=== PATIENT | female | born 1980 | race Caucasian/White ===

== ENCOUNTER 2017-09-04 11:30 | Observation (INO) | payer MEDICAID, SELFPAY | END 2017-09-05 09:20 | disposition home or self-care (01) | PROVIDERS: Admitting Provider Obstetrics & Gynecology; Family Provider Pediatrics; Visit Provider Obstetrics & Gynecology | DX: R10.2 Pelvic and perineal pain (principal); N39.0 Urinary tract infection, site not specified; N81.89 Other female genital prolapse; N81.5 Vaginal enterocele | CPT/HCPCS: 58150; 57268; 36415; 81001; 85014; 85018; 87086; 96372; 96374; 96375; G0378; J0131; J2405 ==

== ENCOUNTER → 2018-01-26 09:48 | Outpatient (POV) | payer MEDICAID, SELFPAY ==
[2018-01-26 10:16] VITALS: BP 126/75; PULSE 68; RESP 20; TEMP 37.1; O2SAT 99
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
--- NOTE | 2018-01-26 10:47 | P.CONS_ITS ---
Assessment and Plan (1) Pelvic pain Current visit: Yes Status: Chronic Category: Medical Code(s): R10.2 - Pelvic and perineal pain (2) Peripheral neuropathy Current visit: Yes Status: Chronic Qualifiers: Peripheral neuropathy type: polyneuropathy, unspecified Qualified Code(s): G62.9 - Polyneuropathy, unspecified Category: Medical Code(s): G62.9 - Polyneuropathy, unspecified - Assessment and plan all Dx Assessment and Plan for all problems:: This patient has failed gabapentin in the past. We will start her on Lyrica 75 mg twice a day. Will follow up with her in 2 weeks and reevaluate her symptoms. If she has no side effects we will increase this dose to 100 mg 3 times a day. She may also be a candidate to add Cymbalta if she does not get much benefit with the Lyrica. HPI - Data of Consult Patient: new to practice Consult date: 01/26/18 Requesting Physician: Cameron Flores MD Primary Care Provider: Grabiel Hernández Family Provider: Referral Provider, - Consult Narrative Reason for consult: Pelvic pain with neuropathy History of present illness: Ms. Nando Swift is a 37 year old female who presents with pelvic pain and some neuropathic issues. Patient states that she has electric shocks all over her body including the pelvic area her arms, mid back and legs. This occurs approximately 10-15 times a day and can only last for a few seconds to a minute. She has previously been on gabapentin prescribed by her primary care physician which did not give her any benefit. The patient cannot think of anything else that makes her pain better or worse. Since this patient has failed gabapentin I would like to start her on Lyrica 75 mg twice a day. This patient has not been on Lyrica. Pain score is a 7 out of 10. Patient is also tried Motrin, naproxen and Zoloft which have not given her any benefit. She has not done any physical therapy. Patient has seen a neurologist and had nerve conduction studies done which are negative. CC: Cameron Flores MD [facility] History I have reviewed the patient's past medical history: Yes Medical History: Denies:: Diabetes Mellitus Type 1 Other Medical History: Reports: Other Other Surgeries: Yes: Appendectomy, BSO, Hernia Repair, Hysterectomy-Total, Other Amputation: No Fractures: No - *Social History Educational Level: Completed High School Smoking Status: Current some day smoker Tobacco Type: cigarettes # Packs/Day (cigarettes): 1 Alcohol Intake: never Alcohol Intake Frequency:: a few times a month Substance Use Type: denies use Occupational Status: other Housing: house - Psychiatric History Expresses thoughts of harming self/others: None Suicide Plan Description: No Plan *Family Hx:: Cancer, Diabetes, Hypertension, Stroke Review of Systems - Review of Systems Review of systems:: pertinent systems reviewed and negative unless documented below Meds Home Medications Medication Instructions Recorded Confirmed Type multivitamin,[id number] 1 tab PO QDAY 10/09/17 History tablet nitrofurantoin 1 cap PO Q12H 10/09/17 History monohydrate/macrocrystals 100 mg capsule varenicline 0.5 mg tablet 0.5 mg PO QDAY 10/09/17 History Allergies Allergy/AdvReac Type Severity Reaction Status Date / Time codeine [CODEINE] Allergy Unknown I-ITCHING Unverified 01/12/18 14:43 Objective Vital signs: Temp Pulse Resp
== END ==
PROVIDERS: PCP Orthopaedic Surgery; Visit Provider Anesthesiology
DX: G62.9 Polyneuropathy, unspecified (principal); R10.2 Pelvic and perineal pain
CPT/HCPCS: 99202

== ENCOUNTER → 2018-02-09 13:33 | Outpatient (POV) | payer MEDICAID, SELFPAY ==
[2018-02-09 13:42] VITALS: BP 125/69; PULSE 58; RESP 18; O2SAT 97; BMI 25.7
--- NOTE | 2018-02-09 14:32 | HMH.PAINSOAP ---
[facility] Pain Management SOAP Note Subjective:: Patient is a 37-year-old white female who presents today with a complaint of electric shock like pain all over her body. Patient states that this happens 10-15 times a day. She is also got migraines which she experiences at least once a week. Patient's previously been on gabapentin. Patient was started on Lyrica 75 mg 1 p.o. twice daily. Patient denies any side effects that she is getting some benefit from it but I believe the dose needs to be adjusted. Patient's tried and failed Motrin, naproxen, Zoloft. Patient has been to neurology where she had nerve studies conducted however they were negative. Patient has had a duodenal switch. She is also had multiple abdominal surgeries. Patient and I discussed potentially getting some labs drawn from her primary care. I recommended a B12, thyroid panel, and iron level, CBC BMP. Patient is going to be going to her primary care physician to have these tests run and she is going to return to our office with the results. [facility] #[id number] and appropriate. Of note patient did lose her sister 2 years ago. Her symptoms did follow after this. Biofeedback therapy may be helpful for her in the future. ROS General: no recent weight change, no fever, no sleep disturbances Respiratory: no cough, no shortness of air, no recurring pulmonary infections Cardiovascular/Peripheral Vascular: No chest pain, No palpitations, no edema, no shortness of breath. Gastrointestinal: no incontinence, normal bowel movements reported Genitourinary: no incontinence Musculoskeletal: Electric shocklike pain generalized, migraines Psychiatric: normal mood/ affect Neurological: [denies weakness in extremities], [denies balance issues] Objective:: Physical Exam General: Alert and oriented x3, no acute distress, pleasant and cooperative, [on room air] Lungs: Resps E/U, Symmetrical chest expansion, Eyes: PERRL Musculoskeletal: deep tendon reflexes normal, strength in upper and lower extremities [5/5], normal gait noted Neurological: speech clear, behavioral health clinician equal, no gross sensory deficits Assessment:: Pelvic pain, peripheral neuropathy Plan:: We will increase her there could 150 mg 1 p.o. twice daily. She will get her labs done and revisit us in a month. We will evaluate her labs and also discuss how her Lyrica increase has assisted. This note was dictated using voice recognition software and may contain errors or omissions
--- NOTE | 2018-02-09 14:47 | P.CONS_ITS ---
[facility] Pain Management SOAP Note Subjective:: Patient is a 37-year-old white female who presents today with a complaint of electric shock like pain all over her body. Patient states that this happens 10 -15 times a day. She is also got migraines which she experiences at least once a week. Patient's previously been on gabapentin. Patient was started on Lyrica 75 mg 1 p.o. twice daily. Patient denies any side effects that she is getting some benefit from it but I believe the dose needs to be adjusted. Patient's tried and failed Motrin, naproxen, Zoloft. Patient has been to neurology where she had nerve studies conducted however they were negative. Patient has had a duodenal switch. She is also had multiple abdominal surgeries. Patient and I discussed potentially getting some labs drawn from her primary care. I recommended a B12, thyroid panel, and iron level, CBC BMP. Patient is going to be going to her primary care physician to have these tests run and she is going to return to our office with the results. [facility] # [id number] and appropriate. Of note patient did lose her sister 2 years ago. Her symptoms did follow after this. Biofeedback therapy may be helpful for her in the future. ROS General: no recent weight change, no fever, no sleep disturbances Respiratory: no cough, no shortness of air, no recurring pulmonary infections Cardiovascular/Peripheral Vascular: No chest pain, No palpitations, no edema, no shortness of breath. Gastrointestinal: no incontinence, normal bowel movements reported Genitourinary: no incontinence Musculoskeletal: Electric shocklike pain generalized, migraines Psychiatric: normal mood/ affect Neurological: [denies weakness in extremities], [denies balance issues] Objective:: Physical Exam General: Alert and oriented x3, no acute distress, pleasant and cooperative, [ on room air] Lungs: Resps E/U, Symmetrical chest expansion, Eyes: PERRL Musculoskeletal: deep tendon reflexes normal, strength in upper and lower extremities [5/5], normal gait noted Neurological: speech clear, admissions nurse equal, no gross sensory deficits Assessment:: Pelvic pain, peripheral neuropathy Plan:: We will increase her there could 150 mg 1 p.o. twice daily. She will get her labs done and revisit us in a month. We will evaluate her labs and also discuss how her Lyrica increase has assisted. This note was dictated using voice recognition software and may contain errors or omissions
== END ==
PROVIDERS: PCP Orthopaedic Surgery; Visit Provider Clinical Nurse Specialist Family Health
DX: G62.9 Polyneuropathy, unspecified (principal); R10.2 Pelvic and perineal pain
CPT/HCPCS: 99212

== ENCOUNTER → 2018-03-09 13:40 | Outpatient (POV) | payer MEDICAID, SELFPAY ==
[2018-03-09 13:53] VITALS: BP 127/66; PULSE 57; RESP 18; O2SAT 98; BMI 25.7
--- NOTE | 2018-03-09 14:57 | HMH.PAINSOAP ---
[facility] Pain Management SOAP Note Subjective:: Patient is a pleasant 37-year-old white female who presents today for follow-up. Patient's main complaint of electric shock like pain all over her body still continues. Patient was unable to fill her Lyrica. Patient had tried Lyrica 75 mg 1 p.o. twice a day and did well with this. Patient denied side effects and stated it was the only medication that actually helped her pain. Patient's tried and failed Motrin, naproxen, Zoloft, gabapentin. We will will increase the patient to Lyrica 150 mg 1 p.o. twice daily given the efficacy. 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 Patient's been to neurology where she had nerve studies conducted however they were negative. Patient has not had multiple abdominal surgeries. Patient was unable to have labs drawn from her primary care physician. As discussed in her last note I do believe biofeedback therapy may be helpful for her in the future. Patient rates her pain a 2 out of 10 today however she states her baseline pain is a 6 out of 10. ROS General: no recent weight change, no fever, no sleep disturbances Respiratory: no cough, no shortness of air, no recurring pulmonary infections Cardiovascular/Peripheral Vascular: No chest pain, No palpitations, no edema, no shortness of breath. Gastrointestinal: no incontinence, normal bowel movements reported Genitourinary: no incontinence Musculoskeletal: Electric shocklike pain generalized, migraines Psychiatric: normal mood/ affect Neurological: [denies weakness in extremities], [denies balance issues] Objective:: Physical Exam General: Alert and oriented x3, no acute distress, pleasant and cooperative, [on room air] Lungs: Resps E/U, Symmetrical chest expansion, Eyes: PERRL Musculoskeletal: deep tendon reflexes normal, strength in upper and lower extremities [5/5], normal gait noted Neurological: speech clear, fibre cement moulder equal, no gross sensory deficits Assessment:: Pelvic pain, peripheral neuropathy Plan:: We will prescribe Lyrica 150 mg 1 p.o. twice daily given the efficacy of her trial dose and failures of other treatment. I will follow-up with this patient after she has been on this dose for 1 month. We did speak with her pharmacy and requested a prior authorization for this medication. This note was dictated using voice recognition software and may contain errors or omissions
--- NOTE | 2018-03-09 15:01 | P.CONS_ITS ---
[facility] Pain Management SOAP Note Subjective:: Patient is a pleasant 37-year-old white female who presents today for follow- up. Patient's main complaint of electric shock like pain all over her body still continues. Patient was unable to fill her Lyrica. Patient had tried Lyrica 75 mg 1 p.o. twice a day and did well with this. Patient denied side effects and stated it was the only medication that actually helped her pain. Patient's tried and failed Motrin, naproxen, Zoloft, gabapentin. We will will increase the patient to Lyrica 150 mg 1 p.o. twice daily given the efficacy. 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 Patient's been to neurology where she had nerve studies conducted however they were negative. Patient has not had multiple abdominal surgeries. Patient was unable to have labs drawn from her primary care physician. As discussed in her last note I do believe biofeedback therapy may be helpful for her in the future. Patient rates her pain a 2 out of 10 today however she states her baseline pain is a 6 out of 10. ROS General: no recent weight change, no fever, no sleep disturbances Respiratory: no cough, no shortness of air, no recurring pulmonary infections Cardiovascular/Peripheral Vascular: No chest pain, No palpitations, no edema, no shortness of breath. Gastrointestinal: no incontinence, normal bowel movements reported Genitourinary: no incontinence Musculoskeletal: Electric shocklike pain generalized, migraines Psychiatric: normal mood/ affect Neurological: [denies weakness in extremities], [denies balance issues] Objective:: Physical Exam General: Alert and oriented x3, no acute distress, pleasant and cooperative, [ on room air] Lungs: Resps E/U, Symmetrical chest expansion, Eyes: PERRL Musculoskeletal: deep tendon reflexes normal, strength in upper and lower extremities [5/5], normal gait noted Neurological: speech clear, absorber operator equal, no gross sensory deficits Assessment:: Pelvic pain, peripheral neuropathy Plan:: We will prescribe Lyrica 150 mg 1 p.o. twice daily given the efficacy of her trial dose and failures of other treatment. I will follow-up with this patient after she has been on this dose for 1 month. We did speak with her pharmacy and requested a prior authorization for this medication. This note was dictated using voice recognition software and may contain errors or omissions
== END ==
PROVIDERS: PCP Orthopaedic Surgery; Visit Provider Clinical Nurse Specialist Family Health
DX: G62.9 Polyneuropathy, unspecified (principal)
CPT/HCPCS: 99212

== ENCOUNTER → 2018-04-06 13:23 | Outpatient (POV) | payer MEDICAID, SELFPAY ==
[2018-04-06 13:38] VITALS: BP 111/60; PULSE 59; RESP 18; O2SAT 98; BMI 25.7
--- NOTE | 2018-04-06 14:02 | HMH.PAINSOAP ---
[facility] Pain Management SOAP Note Subjective:: Patient is a pleasant 37-year-old white female who presents today for follow-up. Patient's main complaint of electric shocklike the liver body still continues. Patient was unable to fill her Lyrica. Patient states that during her trial of Lyrica she did experience left shocks and typical. Patient's been to neurology where she has had nerve studies conducted however they were negative. 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 Patient states most of her electrical shocks today are mainly in the vaginal area. She rates her pain a 4 out of 10 today. Patient has not tried Cymbalta. ROS General: no recent weight change, no fever, no sleep disturbances Respiratory: no cough, no shortness of air, no recurring pulmonary infections Cardiovascular/Peripheral Vascular: No chest pain, No palpitations, no edema, no shortness of breath. Gastrointestinal: no incontinence, normal bowel movements reported Genitourinary: no incontinence Musculoskeletal: Electric shocklike pain generalized, migraines Psychiatric: normal mood/ affect Neurological: [denies weakness in extremities], [denies balance issues] Objective:: Physical Exam General: Alert and oriented x3, no acute distress, pleasant and cooperative, [on room air] Lungs: Resps E/U, Symmetrical chest expansion, Eyes: PERRL Musculoskeletal: deep tendon reflexes normal, strength in upper and lower extremities [5/5], normal gait noted Neurological: speech clear, fine grade operator equal, no gross sensory deficits Assessment:: Pelvic pain, peripheral neuropathy Plan:: We will start her on Cymbalta 30 mg 1 p.o. daily we will see her back in 1 month to determine if this is helpful. If it is we will increase her to 60 mg daily. This note was dictated using voice recognition software and may contain errors or omissions
--- NOTE | 2018-04-06 14:05 | P.CONS_ITS ---
[facility] Pain Management SOAP Note Subjective:: Patient is a pleasant 37-year-old white female who presents today for follow- up. Patient's main complaint of electric shocklike the liver body still continues. Patient was unable to fill her Lyrica. Patient states that during her trial of Lyrica she did experience left shocks and typical. Patient's been to neurology where she has had nerve studies conducted however they were negative. 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 Patient states most of her electrical shocks today are mainly in the vaginal area. She rates her pain a 4 out of 10 today. Patient has not tried Cymbalta. ROS General: no recent weight change, no fever, no sleep disturbances Respiratory: no cough, no shortness of air, no recurring pulmonary infections Cardiovascular/Peripheral Vascular: No chest pain, No palpitations, no edema, no shortness of breath. Gastrointestinal: no incontinence, normal bowel movements reported Genitourinary: no incontinence Musculoskeletal: Electric shocklike pain generalized, migraines Psychiatric: normal mood/ affect Neurological: [denies weakness in extremities], [denies balance issues] Objective:: Physical Exam General: Alert and oriented x3, no acute distress, pleasant and cooperative, [ on room air] Lungs: Resps E/U, Symmetrical chest expansion, Eyes: PERRL Musculoskeletal: deep tendon reflexes normal, strength in upper and lower extremities [5/5], normal gait noted Neurological: speech clear, clinical investigator equal, no gross sensory deficits Assessment:: Pelvic pain, peripheral neuropathy Plan:: We will start her on Cymbalta 30 mg 1 p.o. daily we will see her back in 1 month to determine if this is helpful. If it is we will increase her to 60 mg daily. This note was dictated using voice recognition software and may contain errors or omissions
== END ==
PROVIDERS: PCP Orthopaedic Surgery; Visit Provider Clinical Nurse Specialist Family Health
DX: G62.9 Polyneuropathy, unspecified (principal)
CPT/HCPCS: 99212

== ENCOUNTER → 2018-05-04 13:16 | Outpatient (POV) | payer MEDICAID, SELFPAY ==
[2018-05-04 13:43] VITALS: BP 122/67; PULSE 66; RESP 18; O2SAT 97; BMI 25.7
--- NOTE | 2018-05-04 14:08 | HMH.PAINSOAP ---
[facility] Pain Management SOAP Note Subjective:: Patient is a pleasant 38-year-old white female who presents today for follow-up. Patient was put on Cymbalta and last visit however she has not had any success with this. Patient main complaint is electric shocklike signals around her body. Patient has had Lyrica and Lyrica has been the only thing that has helped her. Patient had a duodenal switch in the past. Patient's been to neurology where she had nerve studies conducted however they were negative. She rates her pain a 5 out of 10. She states most of her electrical shocks today are mainly in her lower abdomen. ROS General: no recent weight change, no fever, no sleep disturbances Respiratory: no cough, no shortness of air, no recurring pulmonary infections Cardiovascular/Peripheral Vascular: No chest pain, No palpitations, no edema, no shortness of breath. Gastrointestinal: no incontinence, normal bowel movements reported Genitourinary: no incontinence Musculoskeletal: Nerve pain Psychiatric: normal mood/ affect Neurological: [denies weakness in extremities], [denies balance issues] Objective:: Physical Exam General: Alert and oriented x3, no acute distress, pleasant and cooperative, [on room air] Lungs: Resps E/U, Symmetrical chest expansion, Eyes: PERRL Musculoskeletal: deep tendon reflexes normal, strength in upper and lower extremities [5/5], normal gait noted Neurological: speech clear, health and safety consultant equal, no gross sensory deficits Assessment:: Pelvic pain, peripheral neuropathy Plan:: We will see if she is a candidate for the Lyrica assistance program. Patient had such good relief in the past I believe that this is the medication that would be the most beneficial for her. We will start her at 5 mg 1 p.o. twice daily. I will follow-up with her once we determine if she is a candidate or not. This note was dictated using voice recognition software and may contain errors or omissions
== END ==
PROVIDERS: PCP Orthopaedic Surgery; Visit Provider Clinical Nurse Specialist Family Health
DX: G62.9 Polyneuropathy, unspecified (principal)
CPT/HCPCS: 99212

== ENCOUNTER → 2019-05-13 08:35 | Outpatient (CLI) | payer MEDICAID, SELFPAY ==
--- NOTE | 2019-05-13 08:50 | CT_ITS ---
PROCEDURE: CT WRIST RT WO CON CLINICAL HISTORY: further evaluation of fracture Pain, fracture evaluation COMPARISON: XR WRIST RT MIN 3V from 05/11/2019 TECHNIQUE: Axial images obtained with sagittal and coronal reformats. All CT scans at the facility use one or more dose reduction, viz: automated exposure control, ma/kV adjustment per patient size (including targeted exams where dose is matched to indication, i.e. head), or iterative reconstruction technique. FINDINGS: There is a comminuted fracture involving the distal aspect of the radius. The fracture extends into the articular surface medially and dorsally. The dorsal medial fracture fragment is displaced laterally by 7 mm. There is mild dorsal angulation of the distal fracture fragment. The radial ulnar joint does not appear widened. There is a small avulsion injury at the tip of the ulnar styloid. IMPRESSION: Comminuted mildly displaced distal radial fracture with intra-articular involvement and associated avulsion of the ulnar styloid Dictated by: Reg Ellis MD 05/14/2019 07:03 Signed by: <Electronically signed by Reg Ellis MD in [place]> 05/14/2019 07:03
--- NOTE | 2019-05-13 08:50 | XR_ITS ---
PROCEDURE: XR CHEST 2V CLINICAL HISTORY: CURRENT TOBACCO USE, PRE OP Current smoker. With cough COMPARISON: No prior exams were available for comparison FINDINGS: Lungs clear with nothing definitely acute. Calcified left hilar nodes reflect old granulomatous disease. Very small partially calcified peripheral granuloma projected over the anterior 6th rib The cardiomediastinal silhouette and pulmonary vascularity are within normal limits. The lungs are clear without infiltrates, suspicious nodules, or pleural effusions. No acute bony abnormalities. IMPRESSION: No acute findings. Lungs clear no active disease Dictated by: Goldy Dudley MD 05/13/2019 11:09 Signed by: <Electronically signed by Goldy Dudley MD in [place]> 05/13/2019 11:09
[2019-05-13 09:39] LABS: Basophils # 0.1 K/mm3 (0-0.2); Basophils % 0.7 % (0.1-2.0); Eosinophils # 0.1 K/mm3 (0.0-0.4); Hematocrit 37.5 % (37.0-47.0); Hemoglobin 11.4 g/dL (12.2-16.2); Lymphocytes # 3.1 K/mm3 (0.7-4.5); Lymphocytes % 30.2 % (10-50); Mean Corpuscular HGB Conc 30.5 g/dL (31.8-35.4); Mean Corpuscular Hemoglobin 24.9 pg (27.0-31.2); Mean Corpuscular Volume 81.6 fl (81-99); Mean Platelet Volume 8.5 fl (7.4-10.4); Monocytes % 9.9 % (1.7-9.3); Neutrophils # 5.9 K/mm3 (1.8-7.8); Neutrophils % 58.2 % (37.0-80.0); Platelet Count 294 K/mm3 (142-424); Red Blood Count 4.59 M/mm3 (4.20-5.40); Red Cell Distribution Width 16.9 % (11.5-17.5); White Blood Count 10.2 K/mm3 (4.8-10.8)
[2019-05-13 10:55] LABS: Anion Gap 15.7 mEq/L (5-15); Blood Urea Nitrogen 6 mg/dL (7-18); Calcium 8.9 mg/dL (8.5-10.1); Carbon Dioxide 26 mmol/L (21.0-32.0); Chloride 101 mmol/L (98-107); Creatinine,Serum 0.98 mg/dL (0.55-1.02); Estimated Glomerular Filt Rate 64 ml/min (>60); GFR (African American) 77 ML/MIN (>60); Glucose 82 mg/dL (74-106); Potassium 3.7 mmoL/L (3.5-5.1); Sodium 139 mmol/L (136-145)
== END ==
PROVIDERS: PCP Pediatrics; Visit Provider Orthopaedic Surgery
DX: Z01.818 Encounter for other preprocedural examination (principal); S52.571A Other intraarticular fracture of lower end of right radius, initial encounter for closed fracture
CPT/HCPCS: 36415; 71046; 73200; 80048; 85025

== ENCOUNTER → 2019-05-25 12:01 | Outpatient (CLI) | payer MEDICAID, SELFPAY ==
--- NOTE | 2019-05-25 12:05 | XR_ITS ---
PROCEDURE: XR WRIST RT MIN 3V CLINICAL INDICATION: sp ORIF rt wrist, dos 05/14/19; cast applied Follow-up fracture/ORIF COMPARISON: XR WRIST RT 2V from 05/14/2019 FINDINGS: A volar bone plate remains in place stabilizing distal radial fracture. There is good alignment. A cast is present. IMPRESSION: Status post ORIF distal radial fracture with good alignment Dictated by: Reg Ellis MD 05/25/2019 12:22 Signed by: <Electronically signed by Reg Ellis MD in [place]> 05/25/2019 12:22
== END ==
PROVIDERS: PCP Family Medicine; Visit Provider Orthopaedic Surgery
DX: Z48.89 Encounter for other specified surgical aftercare (principal)
CPT/HCPCS: 73110

== ENCOUNTER → 2019-06-23 10:42 | Outpatient (CLI) | payer MEDICAID, SELFPAY ==
--- NOTE | 2019-06-23 10:44 | XR_ITS ---
PROCEDURE: XR WRIST RT MIN 3V CLINICAL INDICATION: sp ORIF RT wrist, dos 05/14/19. xrays out of cast Follow-up ORIF after cast removal COMPARISON: XR WRIST RT MIN 3V from 05/11/2019 XR WRIST RT 2V from 05/14/2019 XR WRIST RT MIN 3V from 05/25/2019 FINDINGS: Anterior bone plate remains in place stabilizing the distal radial fracture. There is good alignment. Fracture line is still visible dorsally. IMPRESSION: Good alignment status post ORIF distal radial fracture Dictated by: Reg Ellis MD 06/23/2019 12:18 Electronically signed by Reg Ellis MD in [place] 06/23/2019 12:18
== END ==
PROVIDERS: PCP Family Medicine; Visit Provider Orthopaedic Surgery
DX: S52.571A Other intraarticular fracture of lower end of right radius, initial encounter for closed fracture (principal); S52.614A Nondisplaced fracture of right ulna styloid process, initial encounter for closed fracture; Z09 Encounter for follow-up examination after completed treatment for conditions other than malignant neoplasm
CPT/HCPCS: 73110

== ENCOUNTER 2019-06-23 11:41 | Outpatient (RCR) | payer MEDICAID, SELFPAY | END 2019-06-23 12:00 | disposition home or self-care (01) | LOC: OT 11:41 | PROVIDERS: Visit Provider Orthopaedic Surgery | DX: S52.571D Other intraarticular fracture of lower end of right radius, subsequent encounter for closed fracture with routine healing (principal); S52.614D Nondisplaced fracture of right ulna styloid process, subsequent encounter for closed fracture with routine healing | CPT/HCPCS: 97763 ==

== ENCOUNTER → 2019-08-04 10:05 | Outpatient (CLI) | payer MEDICAID, SELFPAY ==
--- NOTE | 2019-08-04 10:09 | XR_ITS ---
PROCEDURE: XR WRIST RT MIN 3V CLINICAL INDICATION: sp ORIF RT wrist, dos 05/14/19 COMPARISON: XR WRIST RT MIN 3V from 05/11/2019 XR WRIST RT 2V from 05/14/2019 XR WRIST RT MIN 3V from 05/25/2019 XR WRIST RT MIN 3V from 06/23/2019 FINDINGS: Status post ORIF distal radial fracture with volar bone plate and multiple screws. There is good alignment of the fracture fragments with no significant change from the previous exam.. The most lateral screw at the distal radius appears to project just lateral to the cortical surface of the distal radius. The fracture line of the distal radius appears somewhat less apparent IMPRESSION: Good alignment status post ORIF distal radial fracture Dictated by: Reg Ellis MD 08/04/2019 10:32 Electronically signed by Reg Ellis MD in [place] 08/04/2019 10:32
== END ==
PROVIDERS: PCP Pediatrics; Visit Provider Orthopaedic Surgery
DX: S52.571A Other intraarticular fracture of lower end of right radius, initial encounter for closed fracture (principal); S52.614A Nondisplaced fracture of right ulna styloid process, initial encounter for closed fracture; Z09 Encounter for follow-up examination after completed treatment for conditions other than malignant neoplasm
CPT/HCPCS: 73110

== ENCOUNTER 2021-06-05 13:55 | Emergency (ER) | payer MEDICAID, SELFPAY ==
[2021-06-05 15:43] VITALS: BP 113/84; PULSE 86; RESP 18; TEMP 37; O2SAT 100; BMI 27.4
[2021-06-05 15:47] VITALS: BP 113/84; PULSE 86; RESP 18; TEMP 36.9
--- NOTE | 2021-06-05 16:04 | HMH.EDUTC ---
[facility] [place] Disposition Clinical Impression: Viral syndrome, Exposure to COVID-19 virus Disposition: Home, Self-Care Condition on Discharge: Good Instructions: DI for COVID-19 (Suspected or Confirmed ), Preventing the Spread of Coronavirus Discharge Instructions Additional Instructions: Drink plenty of fluids. Take tylenol or ibuprofen for pain or fever. Take the medications as directed. Follow up with your regular doctor. GO TO THE ER FOR ANY WORSENING SYMPTOMS Quarantine until you know the results of your covid-19 test. If it is positive, the health department should call you and give you further instructions about your length of Quarantine and other things. Notify your school or workplace of your results and follow their instructions regarding return to work/school. Referrals: Carlton Walters [Primary Care Provider] - Time of Disposition: 16:16 Medical Decision Making - Medical Records Medical records reviewed: No: I reviewed the patient's medical records. - Dixon Inquiry Pt receiving controlled substance: No Vital Signs: 06/05/21 15:43 06/05/21 15:47 Temperature 98.6 F 98.4 F Temperature Source Oral Pulse Rate 86 Pulse Rate [Left] 86 Respiratory Rate 18 18 Blood Pressure 113/84 Blood Pressure [Right Arm] 113/84 Blood Pressure Mean [Right Arm] 93 02 Sat by Pulse Oximetry 100 [facility] [place] HPI - General Stated complaint: covid test / symptoms Time Seen by Provider: 06/05/21 16:04 Mode of Arrival: Ambulatory Source of Information: Patient Limitations: No Limitations Description of Symptoms (Recalled from Triage Doc. by RN): pt c/o chills, KINCAID, fever hx, and body aches. HEENT Symptoms (Recalled from RN notes): Yes (KINCAID) Resp Symptoms (Recalled from RN notes): No Skin Symptoms (Recalled from RN notes): No MS Symptoms (Recalled from RN notes): No Functional Status (Recalled from RN notes): fever, myalgia, and chills - History of Present Illness Provider Complaint: She has had chilling, chest tightness and she has felt bad for the past 2 days. - Related Data Home Medications Medication Instructions Recorded Confirmed multivitamin,[id number] 1 tab PO QDAY 10/09/17 08/04/19 varenicline 0.5 mg tablet 0.5 mg PO QDAY 10/09/17 08/04/19 Allergies Allergy/AdvReac Type Severity Reaction Status Date / Time codeine [CODEINE] Allergy Unknown I-ITCHING Verified 08/04/19 10:26 - Worker's Comp Is this a Worker's Comp case?: No [facility] History - Hepatitis A Screen Drug use history?: No High risk sexual behaviors?: No History of sexually transmitted infection?: No Currently employed?: No Childcare worker?: No Do you have indoor plumbing?: Yes Do you have electricity?: Yes Attestation statement:: This patient has been screened for Hepatitis A risk factors. I have reviewed the patient's past medical history: Yes Medical History: Reports:: Cancer, Gastroesophageal Reflux Disease(GERD) Denies:: Diabetes Mellitus Type 1, Diabetes Mellitus Type 2, Internal Pacemaker, MRSA, Seizures Other Medical History: Reports: Other. Denies: Blood Transfusion Reaction Comment: Pancreatitis--2010--Secondary to weight loss surgery Other Surgeries: Yes: Appendectomy, BSO, Cholecystectomy, Hernia Repair, Hysterectomy-Total, Other. No: Pacemaker Amputation: No Fractures: No Comment: LEEP--2006. Duodenal Switch (for weight loss)--2010. Ventral Herniorrhaphy--2011. Essure Implant --2015. HSG--08/2016. TVh, BSO, E/R--2016 - Social History Smoking Status: Current every day smoker Tobacco Type: cigarettes # Packs/Day (cigarettes): 2 Alcohol Intake: never Alcohol Intake Frequency:: holidays/special occasions only Substance Use Type: marijuana Occupational Status: employed, other Housing: house Household Members: spouse Family Hx:: Cancer, Diabetes, Hypertension, Stroke Comment: 2012-- Baby of SIDS at 2 1/2 months ROS Obtained: Yes All systems reviewed & no additional complaints - Con
== END 2021-06-05 16:26 | disposition home or self-care (01) ==
PROVIDERS: Emergency Provider Nurse Practitioner Family; PCP Pediatrics
DX: U07.1 COVID-19 (principal)
CPT/HCPCS: 99202; G0463; U0003

== ENCOUNTER → 2023-04-23 08:57 | Outpatient (POV) | payer MEDICAID, SELFPAY ==
--- NOTE | 2023-04-23 09:15 | EXP.PAIN.OV ---
HPI Data of Consult Patient: new to practice Consult date: 04/23/23 Requesting Physician: Elma Myrick APRN Consult Narrative Reason for consult: Electrical shock symptoms History of present illness: Ms. Nando Swift is a 43 year old female who presents today as a new patient. She is a referral from Lisset Guevara's office. Today she rates her pain a Patient states that about 8 years ago unrelated to any specific accident or trauma that she started experiencing electrical shocks throughout her body. Patient states this occurs in her arms and legs and behind her ears and has no sets pattern. She states that it seems unrelated to any specific activity she may be continuing. She states that she has done multiple test and seen multiple specialist with no acute findings. Patient did also see a neurologist and believes that she may have had an EMG test. She has tried [id number] Tylenol and ibuprofen along with multiple muscle relaxers. She is currently on methocarbamol 750 mg 4 times a day. She is also tried gabapentin with no additional relief. Patient was denied Lyrica from insurance. Patient has had multiple surgeries including bariatric surgery approximately 12 years ago, bilateral mastectomy with flap reconstruction, appendectomy, cholecystectomy, hysterectomy and ventral hernia repair. She does state that she is on B12 and frequently has her B12 levels checked once a year. She does have a chronic history of low back pain with no radiating symptoms. She does state that she has some numbness and tingling to her legs. Patient is currently prescribed oxycodone 5 mg from an outside provider. She does use marijuana as needed. She has tried physical therapy in the past. Patient does state that she does have previous imaging of her lumbar spine that was sent via email and that she can send it to our office. Her Dixon is [id number]. Its been reviewed and appropriate. CC: Elma Myrick APRN [facility] Disclaimer: The information contained in this section may have been updated after the patient was seen, as this information can be updated by other users. Medical History (Updated 04/23/23 @ 09:35 by Elma Myrick APRN) Anemia BRCA positive H/O chest pain Marijuana abuse Migraine Seizures Surgical History (Updated 04/23/23 @ 09:19 by Dominique Radford RN) H/O bilateral mastectomy H/O total hysterectomy Hx laparoscopic cholecystectomy Hx of appendectomy Hx of bariatric surgery Status post transverse rectus abdominis muscle (TRAM) flap breast reconstruction Family History (Updated 04/23/23 @ 09:20 by Dominique Radford RN) Other Family history of cancer Social History Smoking Status: Current every day smoker tobacco type: cigarettes packs per day: 2 second hand exposure: Yes alcohol intake: never substance use type: marijuana current occupational status: other Travel in the last 8 weeks: None household members: spouse housing: house current occupation: [employer] current occupational exposures/hazards: No caffeine: Yes Review of Systems Review of Systems Review of systems:: pertinent systems reviewed and negative unless documented below Review of systems (narrative): Review of Systems: General: No recent weight changes, no fever, no sleep disturbances Respiratory: No cough, no shortness of air, no recurring pulmonary infections Cardiovascular/peripheral vascular: No chest pain, no palpitations, no edema, no shortness of breath Gastrointestinal: No new onset incontinence, normal bowel movements reported Genitourinary: No new onset incontinence Musculoskeletal: Full body electrical shock/paresthesia Psychiatric: [Normal mood/affect] Neurological: [Denies weakness in extremities], [denies balance issues] Meds Home Medications and Allergies Home Medications Medication Instructions Recorded Confirmed Type multivitamin,ji-[id number] 1 tab PO QDAY Supplement 10/09/17 04/23/23 History
[2023-04-23 09:16] VITALS: BP 111/75; PULSE 120; RESP 20; O2SAT 100; BMI 27.4
== END ==
PROVIDERS: Visit Provider Nurse Practitioner Family
DX: G62.9 Polyneuropathy, unspecified (principal); R20.2 Paresthesia of skin; M54.50 Low back pain, unspecified; G89.29 Other chronic pain; G89.4 Chronic pain syndrome
CPT/HCPCS: 99202; G0463

== ENCOUNTER → 2023-06-16 11:37 | Outpatient (POV) | payer MEDICAID, SELFPAY ==
--- NOTE | 2023-06-16 12:09 | EXP.PAIN.SOA ---
[facility] Pain Management SOAP Note Subjective:: Patient is a pleasant 43-year-old female who presents today for follow-up. We are currently treating the patient for low back pain, paresthesia, chronic pain disorder. Today she rates her pain a 4 out of 10. Patient does state that she has had a lot going on here recently from our last visit. She states she was hospitalized for 10 days for hemorrhaging. Patient had previously had a operating room procedure and was still continuing to have significant bleeding. Patient states they did do a full work-up including endoscopic procedures and she was found to have a large ulcer that was causing her symptoms. Patient states that she was put on a liquid diet and was added new medications. Patient states she has been doing better following this and she has a follow-up endoscopic procedure tomorrow. Patient does state that she has hemorrhoids from having children and that this is the only bleeding she has noticed in small amounts. Patient does present today with copies of her imaging however we do not have a written report. Patient does state that she had this done at the spine center in [place]. Patient does also state that she has been to see the psychologist for her psych eval last week. Previously we had given her information and discussed a spinal cord stimulator trial for her chronic electrical shock sensations that she is experienced for the last 8 years. Patient does state that she still would like to proceed forward with this plan of care. Patient is currently managed with oxycodone 5 mg from a outside provider. Patient denies any side effects from this medication. Her Dixon is [id number]. Its been reviewed and appropriate. Review of Systems: General: No recent weight changes, no fever, no sleep disturbances Respiratory: No cough, no shortness of air, no recurring pulmonary infections Cardiovascular/peripheral vascular: No chest pain, no palpitations, no edema, no shortness of breath Gastrointestinal: No new onset incontinence, normal bowel movements reported Genitourinary: No new onset incontinence Musculoskeletal: Low back pain, full body electrical shock Psychiatric: [Normal mood/affect] Neurological: [Denies weakness in extremities], [denies balance issues] Objective:: Physical Exam: General: Alert and oriented x3, no acute distress, pleasant and cooperative Lungs: Respirations even and unlabored, symmetrical chest expansion Eyes: PERRL Musculoskeletal: Flexion and extension of lumbar [spine] somewhat guarded secondary to pain, [antalgic gait noted] Neurological: Speech clear, no gross sensory deficit Neck back and knees Center 05/16/2022 X-ray: AP and lateral images were taken of the thoracic spine. Pelvic x-ray AP view. Views include AP and lateral lumbar, AP lateral flexion and extension of cervical spine There is a moderate loss of cervical lordosis noted. There is lateral listing of the lumbar spine to the left: Mild patient has an elevated right pelvis on AP view There is a decrease in the cervical intervertebral disc space at C6-C7. Osteoarthritic changes noted at C5, C6 and C7. There is a decrease in disc height noted at the thoracic T9-T10. Osteoarthritis is noted at T9. Disc height decrease noted at lumbar L4-L5 L5-S1. There is osteoarthritic changes in the lumbar spine at vertebral level L5. Mobility is noted to be decreased in flexion and extension views Assessment:: Low back pain, paresthesia, chronic pain disorder Plan:: Patient continues to have her electrical shock sensations that run through her entire body. I have reviewed with the patient regarding the risk and benefits of the spinal cord stimulator trial. She still would like to proceed forward. I have counseled the patient that at this time we do not have a copy of her psych eval however once we do receive this we will plan on proceeding forward with submitting to insurance for the trial if she is deemed an appropriate can
[2023-06-16 12:23] VITALS: BP 106/74; PULSE 89; RESP 18; O2SAT 99; BMI 22.3
== END ==
PROVIDERS: Visit Provider Nurse Practitioner Family
DX: M54.50 Low back pain, unspecified (principal); R20.2 Paresthesia of skin; G89.4 Chronic pain syndrome
CPT/HCPCS: 99212; G0463

== ENCOUNTER → 2023-07-16 11:03 | Outpatient (POV) | payer MEDICAID, SELFPAY ==
--- NOTE | 2023-07-16 11:53 | EXP.PAIN.SOA ---
[facility] Pain Management SOAP Note Subjective:: Patient is a pleasant 43-year-old female who presents today for follow-up. We are currently treating the patient for chronic low back pain, chronic pain disorder and paresthesia. Today she rates her pain a 4 out of 10. Patient denies any new trauma or injury. She states she is in constant pain in her back and describes it as a aching sensation with numbness and tingling. Patient was previously sent for a psych eval for possible spinal cord stimulator trial due to her chronic electrical shock sensations that she is experienced the last 8 years. Patient does state that she perform this evaluation back in May. Patient does also make mention that she does have a gastric ulcer that she believes is causing a lot of of her pain and that her current GI specialist stated she needed to be seen by someone who does bariatric surgery on a regular basis specifically regarding the duodenal switch. Patient was previously prescribed oxycodone 5 mg from an outside provider. She is requesting if we are able to prescribe any type of medications to help with her pains on a daily basis. Patient denies any heart or kidney issues. Patient does state that she takes Tylenol on a regular basis and does avoid NSAIDs due to her gastric surgery history. Her Dixon is [id number]. Its been reviewed and appropriate. Review of Systems: General: No recent weight changes, no fever, no sleep disturbances Respiratory: No cough, no shortness of air, no recurring pulmonary infections Cardiovascular/peripheral vascular: No chest pain, no palpitations, no edema, no shortness of breath Gastrointestinal: No new onset incontinence, normal bowel movements reported Genitourinary: No new onset incontinence Musculoskeletal: Abdominal pain, low back pain Psychiatric: [Normal mood/affect] Neurological: [Denies weakness in extremities], [denies balance issues] Objective:: Physical Exam: General: Alert and oriented x3, no acute distress, pleasant and cooperative Lungs: Respirations even and unlabored, symmetrical chest expansion Eyes: PERRL Musculoskeletal: Flexion and extension of lumbar [spine] somewhat guarded secondary to pain, [antalgic gait noted] Neurological: Speech clear, no gross sensory deficit Assessment:: Chronic low back pain, chronic pain disorder, paresthesia, abdominal pain Plan:: Patient continues to experience significant pain throughout her abdomen and low back as well as numbness and tingling throughout multiple locations. I have discussed with the patient that I do think she would still be a beneficial candidate of the spinal cord stimulator trial and I will contact the psychologist to confirm that she did complete her psych eval. I have discussed with the patient the risk and benefits of this procedure and she would like to proceed forward. I have discussed with her that as long as she is an appropriate candidate for the device per the psych eval that we will proceed forward with submitting to insurance for the spinal cord stimulator trial. I will send a referral to [facility] for evaluation of her gastric ulcer related to previous bariatric surgery. I will also send in a prescription of methocarbamol 750 mg 3 times daily and provide a 1 month supply of this medication. Patient will follow-up in clinic in 1 month for reevaluation of symptoms and plan of care. Patient has been instructed to contact the clinic with any concerns before the next appointment. Dr. Flores has reviewed this note and agrees with this plan of care. This note was dictated using voice recognition software and make contain errors or omissions. [facility] Disclaimer: The information contained in this section may have been updated after the patient was seen, as this information can be updated by other users. Medical History (Updated 04/23/23 @ 09:35 by Elma Myrick APRN) Anemia BRCA positive H/O chest pain Marijuana abuse Migraine Seizures
[2023-07-16 12:51] VITALS: BP 153/78; PULSE 105; RESP 18; O2SAT 94; BMI 45.3
== END | disposition home or self-care (01) ==
PROVIDERS: Visit Provider Nurse Practitioner Family
DX: M54.50 Low back pain, unspecified (principal); G89.4 Chronic pain syndrome; R20.2 Paresthesia of skin; R10.9 Unspecified abdominal pain
CPT/HCPCS: 99212; G0463

== ENCOUNTER 2023-07-18 17:35 | Emergency (ER) | payer MEDICAID, SELFPAY ==
[2023-07-18 17:36] VITALS: BP 118/77; PULSE 67; RESP 18; TEMP 36.9; O2SAT 98; BMI 20.5
--- NOTE | 2023-07-18 17:57 | PC.NURSE ---
Dr. Adkins at [facility] for pt eval
--- NOTE | 2023-07-18 17:59 | CT_ITS ---
PROCEDURE INFORMATION: Exam: CT Abdomen And Pelvis With Contrast Exam date and time: 07/18/2023 7:46 PM Age: 43 years old Clinical indication: Abdominal pain; Additional info: Abd painhistory of bleeding ulcer TECHNIQUE: Imaging protocol: Computed tomography of the abdomen and pelvis with contrast. Radiation optimization: All CT scans at this facility use at least one of these dose optimization techniques: automated exposure control; mA and/or kV adjustment per patient size (includes targeted exams where dose is matched to clinical indication); or iterative reconstruction. Contrast material: ISOVUE; Contrast volume: 75 ml; Contrast route: IV; REPORTING DATA: Count of CT and Cardiac NM exams in prior 12 months: This patient has received 0 known CTs and 0 known cardiac nuclear medicine studies in the 12 months prior to the current study. COMPARISON: PTV US PELVIS-TRANSVAGINAL ONLY 08/01/2017 3:24 PM FINDINGS: Liver: Hepatic steatosis Gallbladder and bile ducts: Cholecystectomy. Pancreas: Pancreas unremarkable Spleen: The spleen is unremarkable. Adrenal glands: Adrenal glands unremarkable. Kidneys and ureters: No hydronephrosis. Stomach and bowel: Gastric bypass. Postoperative changes involving small bowel loops left lower quadrant. Appendix: No evidence of appendicitis. Intraperitoneal space: Unremarkable. No free air. No significant fluid collection. Vasculature: Unremarkable. No abdominal aortic aneurysm. Lymph nodes: Unremarkable. No enlarged lymph nodes. Urinary bladder: Unremarkable as visualized. Reproductive: Unremarkable as visualized. Bones/joints: Unremarkable. No acute fracture. Soft tissues: Postoperative hernia repair with mesh placement focal irregularity of the anterior abdominal wall. Clinically correlate. IMPRESSION: No evidence of acute abnormality.
[2023-07-18 18:09] LABS: Basophils # 0.1 K/mm3 (0-0.2); Basophils % 0.7 % (0.1-2.0); Eosinophils # 0.1 K/mm3 (0.0-0.4); Eosinophils % 1.1 % (0.1-12.0); Hematocrit 37.2 % (37.0-47.0); Lymphocytes # 3.7 K/mm3 (0.7-4.5); Lymphocytes % 31.5 % (10-50); Mean Corpuscular HGB Conc 32.2 g/dL (31.8-35.4); Mean Corpuscular Hemoglobin 32.5 pg (27.0-31.2); Mean Corpuscular Volume 100.9 fl (81-99); Mean Platelet Volume 8.3 fl (7.4-10.4); Monocytes % 8.1 % (1.7-9.3); Neutrophils % 58.7 % (37.0-80.0); Platelet Count 565 K/mm3 (142-424); Red Blood Count 3.69 M/mm3 (4.20-5.40); Red Cell Distribution Width 15.1 % (11.5-17.5); White Blood Count 11.9 K/mm3 (4.8-10.8)
[2023-07-18 18:23] LABS: Lactic Acid 1.8 mmol/L (0.7-2.1)
[2023-07-18 18:24] LABS: Alanine Aminotransferase 41 U/L (12-78); Albumin Level 2.5 g/dl (3.5-5.0); Albumin/Globulin Ratio 0.8 (1.1-1.8); Alkaline Phosphatase 120 U/L (38-126); Anion Gap 9.9 mEq/L (5-15); Aspartate Amino Transferase 99 U/L (14-36); Bilirubin,Total 0.2 mg/dl (0.2-1.3); Blood Urea Nitrogen 11 mg/dl (7-17); Calcium 7.7 mg/dl (8.4-10.2); Carbon Dioxide 22 mmol/L (22.0-30.0); Chloride 109 mmol/L (98-107); Estimated Glomerular Filt Rate 136 ml/min (>60); GFR (African American) 165 ML/MIN (>60); Globulin 3.2 g/dL (1.3-3.2); Glucose 99 mg/dl (74-100); Lipase 363 U/L (23-300); Potassium 3.9 mmoL/L (3.5-5.1); Sodium 137 mmol/L (136-145); Total Protein,Serum 5.7 g/dl (6.3-8.2)
--- NOTE | 2023-07-18 18:24 | HMH.EDGENADL ---
Discharge Plan Disposition Patient Disposition: Home, Self-Care Chief Complaint: Abdominal Pain Prescriptions Prescriptions: No Action multivitamin,[id number] [Complete Multivitamin] tablet 1 tab PO QDAY acetaminophen 500 mg tablet 500 mg PO Q6H Patient Comments: TAKE 1 TABLET (500 MG) BY MOUTH EVERY 6 (SIX) HOURS. lidocaine 5 % adhesive patch,medicated 1 patch topical Q12H Patient Comments: PLEASE SEE ATTACHED FOR DETAILED DIRECTIONS ibuprofen 600 mg tablet 600 mg PO Q6H Patient Comments: TAKE 1 TABLET (600 MG) BY MOUTH EVERY 6 (SIX) HOURS methocarbamol 750 mg tablet 750 mg PO TID PRN (Reason: muslce spasms) Qty: 90 0RF Referrals Follow up/Referrals: Carlton Walters [Primary Care Provider] - See instructions Activity Restrictions/Add. Instructions Additional Instructions/Restrictions: Call your family doctor to establish care for this visit to the emergency department and schedule follow-up within 48 hours to ensure improvement. If you have any worsening of your condition or any other concerning signs or symptoms, return to the emergency department or your primary care doctor for further evaluation. Esomeprazole, or omeprazole 40 mg daily each night for at least 6 weeks. Avoid ibuprofen, but you can take Tylenol 1000 mg every 6 hours for pain. Clinical Impressions Clinical Impression: Abdominal pain Instructions Patient Instructions: DI for Acute Abdominal Pain Discharge ED Provider: Denny Adkins General Adult HPI General Chief complaint: Abdominal Pain Stated complaint: abd pain Time Seen by Provider: 07/18/23 17:41 History of Present Illness HPI narrative: 43-year-old female with history of gastric bypass surgery, cholecystectomy, operation induced pancreatitis, hysterectomy presenting with abdominal pain. Patient states that her abdominal pain has been going on for over a week. Pain is severe, stabbing. It is periumbilical, radiates upward, downward, around to both flanks. Denies vomiting, but has had significant nausea. No blood or mucus in her stool, no melena. Patient without fevers or chills. Able to tolerate p.o. intake, still passing gas and having bowel movements. Patient states that most recently, she talk to her GI doctor today who told her to come to the emergency department out of concern for a bad ulcer in my duodenum and pancreas. Related Data Home Medications Medication Instructions Recorded Confirmed multivitamin,uk-vmqh-uohpesjw 1 tab PO QDAY Supplement 10/09/17 06/16/23 (Complete Multivitamin tablet) acetaminophen 500 mg tablet 500 mg PO Q6H Pain 04/23/23 06/16/23 ibuprofen 600 mg tablet 600 mg PO Q6H Pain 04/23/23 06/16/23 lidocaine 5 % topical patch 1 patch topical Q12H Pain 04/23/23 06/16/23 Previous Rx's Medication Instructions Recorded methocarbamol 750 mg tablet 750 mg PO TID PRN muslce spasms 07/16/23 #90 tabs Allergies Allergy/AdvReac Type Severity Reaction Status Date / Time codeine [CODEINE] Allergy Unknown I-ITCHING Verified 08/04/19 10:26 [facility] Disclaimer: The information contained in this section may have been updated after the patient was seen, as this information can be updated by other users. Medical History (Updated 07/18/23 @ 20:26 by Denny Adkins MD) Anemia BRCA positive H/O chest pain Marijuana abuse Migraine Seizures Surgical History (Updated 04/23/23 @ 09:19 by Dominique Radford RN) H/O bilateral mastectomy H/O total hysterectomy Hx laparoscopic cholecystectomy Hx of appendectomy Hx of bariatric surgery Status post transverse rectus abdominis muscle (TRAM) flap breast reconstruction Family History (Updated 04/23/23 @ 09:20 by Dominique Radford RN) Other Family history of cancer Social History (Updated 04/23/23 @ 09:19 by Dominique Radford RN) Smoking Status: Former smoker tobacco type: cigarettes packs per day: 2 second hand exposure: Yes alcohol
[2023-07-18 18:40] LABS: HCG,Quantitative 3 mIU/ml (0-5.42)
--- NOTE | 2023-07-18 19:08 | PC.NURSE ---
Rounded on patient, no concerns at this time.
--- NOTE | 2023-07-18 19:14 | PC.NURSE ---
Attempted to collect UA, pt reports unable to go at this time, aware
--- NOTE | 2023-07-18 19:39 | PC.NURSE ---
MD aware pt reports that pain medication isn't helping her pain, no new orders noted
--- NOTE | 2023-07-18 19:48 | PC.NURSE ---
patient back from [facility] at this time.
[2023-07-18 19:58] LABS: Microscopic, Urine URINE MICROSCOPIC (MICROSCOPIC)
--- NOTE | 2023-07-18 20:15 | PC.NURSE ---
in room talking with patient at this time
[2023-07-18 20:34] LABS: Appearance,Urine CLEAR (Clear); Bilirubin,Urine Negative (Negative); Blood, Urine Negative (Negative); Color,Urine YELLOW (Yellow); Glucose,Urine (UA) Negative (Negative); Ketones,Urine Negative (Negative); Leukocyte Esterase,Urine Negative (Negative); Nitrate,Urine Negative (Negative); Protein,Urine Negative (Negative); Specific Gravity, Urine <= 1.005 (1.005-1.030); Urobilinogen,Urine 0.2 EU/dl (0.2)
[2023-07-18 20:38] VITALS: BP 114/73; PULSE 59; RESP 16; TEMP 36.6; O2SAT 99
[2023-07-18 20:50] LABS: Bacteria,Urine Trace /lpf; WBC,Urine Occasional #/hpf (0-3)
== END 2023-07-18 20:43 | disposition home or self-care (01) ==
PROVIDERS: Emergency Provider Emergency Medicine; PCP Pediatrics
DX: R10.84 Generalized abdominal pain (principal); Z98.84 Bariatric surgery status; Z87.19 Personal history of other diseases of the digestive system; Z87.891 Personal history of nicotine dependence
CPT/HCPCS: 74177; 80053; 81001; 83605; 83690; 84702; 85025; 96374; 96375; 99285; Q9967

== ENCOUNTER → 2023-08-14 12:57 | Outpatient (POV) | payer MEDICAID, SELFPAY ==
[2023-08-14 13:13] VITALS: BP 102/61; PULSE 63; RESP 18; O2SAT 98; BMI 22.3
--- NOTE | 2023-08-14 13:18 | EXP.PAIN.SOA ---
[facility] Pain Management SOAP Note Subjective:: Patient is a pleasant 43-year-old female who presents today for follow-up of psych eval. We are currently treating the patient for chronic low back pain, chronic pain disorder and paresthesia. Today she rates her pain a 3 out of 10. Patient denies any new trauma or injury. Patient continues to experience chronic pain in her back and throughout her body. Patient does continue to experience electrical shock sensations as well as numbness and tingling into her extremities. Patient has been experiencing this for the last 8 years. She has tried and failed conservative therapy such as oral medication, heat and ice, topicals, physical therapy, at home stretching and exercise for longer than 12 weeks. Patient is currently managed with oxycodone 5 mg 4 times a day from an outside provider. She denies any side effects from this medication. From our last visit we did prescribe her methocarbamol 750 mg 3 times a day. Patient states this has helped some of her symptoms. She also states that she did get contacted from a referral to [facility] and is scheduled for a upcoming appointment at the end of this month. Her Dixon has been reviewed and is appropriate. Review of Systems: General: No recent weight changes, no fever, no sleep disturbances Respiratory: No cough, no shortness of air, no recurring pulmonary infections Cardiovascular/peripheral vascular: No chest pain, no palpitations, no edema, no shortness of breath Gastrointestinal: No new onset incontinence, normal bowel movements reported Genitourinary: No new onset incontinence Musculoskeletal: Low back pain, paresthesia throughout body Psychiatric: [Normal mood/affect] Neurological: [Denies weakness in extremities], [denies balance issues] Objective:: Physical Exam: General: Alert and oriented x3, no acute distress, pleasant and cooperative Lungs: Respirations even and unlabored, symmetrical chest expansion Eyes: PERRL Musculoskeletal: Flexion and extension of lumbar [spine] somewhat guarded secondary to pain, [antalgic gait noted] Neurological: Speech clear, no gross sensory deficit Assessment:: Chronic low back pain, chronic pain disorder and paresthesia Plan:: Patient did complete her psychological evaluation and was deemed an appropriate candidate for the spinal cord stimulator trial. I have reviewed over the risk and benefits of this procedure with the patient and she would like to proceed forward with this plan of care. I will send in refills of the methocarbamol 750 mg 3 times a day and provide a 1 month supply of this medication. Patient will be submitted for a spinal cord stimulator trial. Patient has tried and failed conservative therapy such as oral medications, heat and ice, topicals, physical therapy, at home stretching exercise for longer than 12 weeks. Patient has been experiencing the electrical shock sensations going on for 8 years. Patient has been instructed to contact the clinic with any concerns before the next appointment. Dr. Flores has reviewed this note and agrees with this plan of care. This note was dictated using voice recognition software and make contain errors or omissions. [facility] Disclaimer: The information contained in this section may have been updated after the patient was seen, as this information can be updated by other users. Medical History (Updated 07/31/23 @ 16:31 by Kelly Nam [facility]) Anemia BRCA positive H/O chest pain Marijuana abuse Migraine Seizures Surgical History (Updated 04/23/23 @ 09:19 by Dominique Radford RN) H/O bilateral mastectomy H/O total hysterectomy Hx laparoscopic cholecystectomy Hx of appendectomy Hx of bariatric surgery Status post transverse rectus abdominis muscle (TRAM) flap breast reconstruction Family History (Updated 04/23/23 @ 09:20 by Dominique Radford RN) Other Family history of cancer Social History (Updated 04/23/23 @ 09:19 by Dominique Castellanos
== END ==
PROVIDERS: PCP Family Medicine; Visit Provider Nurse Practitioner Family
DX: M54.50 Low back pain, unspecified (principal); G89.4 Chronic pain syndrome; R20.2 Paresthesia of skin
CPT/HCPCS: 99212; G0463

== ENCOUNTER → 2023-09-04 12:09 | Outpatient (CLI) | payer MEDICAID, SELFPAY ==
[2023-09-04 13:15] LABS: Basophils # 0.1 K/mm3 (0-0.2); Eosinophils # 0.1 K/mm3 (0.0-0.4); Hematocrit 42.7 % (37.0-47.0); Lymphocytes # 4.8 K/mm3 (0.7-4.5); Lymphocytes % 41.7 % (10-50); Mean Corpuscular HGB Conc 30.4 g/dL (31.8-35.4); Mean Corpuscular Hemoglobin 31.8 pg (27.0-31.2); Mean Corpuscular Volume 104.7 fl (81-99); Mean Platelet Volume 9.2 fl (7.4-10.4); Monocytes # 0.8 K/mm3 (0.1-1.0); Neutrophils # 5.6 K/mm3 (1.8-7.8); Neutrophils % 49.3 % (37.0-80.0); Platelet Count 323 K/mm3 (142-424); Red Blood Count 4.08 M/mm3 (4.20-5.40); Red Cell Distribution Width 14.7 % (11.5-17.5); White Blood Count 11.4 K/mm3 (4.8-10.8)
[2023-09-04 13:41] LABS: Chloride 109 mmol/L (98-107); Potassium 4.6 mmoL/L (3.5-5.1); Sodium 135 mmol/L (136-145)
[2023-09-04 13:44] LABS: Anion Gap 10.6 mEq/L (5-15); Blood Urea Nitrogen 11 mg/dl (7-17); Carbon Dioxide 20 mmol/L (22.0-30.0); Estimated Glomerular Filt Rate 79 ml/min (>60); GFR (African American) 96 ML/MIN (>60)
[2023-09-04 13:45] LABS: Calcium 8.3 mg/dl (8.4-10.2); Glucose 67 mg/dl (74-100)
== END ==
PROVIDERS: PCP Internal Medicine Cardiovascular Disease; Visit Provider Anesthesiology
DX: Z01.818 Encounter for other preprocedural examination (principal)
CPT/HCPCS: 80048; 85025

== ENCOUNTER 2023-09-05 10:49 | Day surgery (SDC) | payer MEDICAID, SELFPAY ==
[2023-09-03 12:42] VITALS: BMI 21.6
[2023-09-05 12:10] VITALS: BP 100/56; PULSE 56; RESP 18; TEMP 36.4; O2SAT 100
--- NOTE | 2023-09-05 13:39 | EXP.ANES.CKL ---
[facility] Disclaimer: The information contained in this section may have been updated after the patient was seen, as this information can be updated by other users. Medical History Anemia BRCA positive H/O chest pain History of palpitations Marijuana abuse Migraine Seizures Surgical History H/O bilateral mastectomy H/O total hysterectomy History of hernia surgery History of surgery on wrist Hx laparoscopic cholecystectomy Hx of appendectomy Hx of bariatric surgery Status post transverse rectus abdominis muscle (TRAM) flap breast reconstruction Family History Other Family history of cancer Family history of diabetes mellitus type II Family history of hypertension Social History Smoking Status: Former smoker tobacco type: cigarettes packs per day: 2 second hand exposure: Yes alcohol intake: current substance use type: marijuana current occupational status: other Travel in the last 8 weeks: None household members: spouse housing: house current occupation: [employer] current occupational exposures/hazards: No caffeine: Yes [facility] Anesthesia Checklist Patient Identification Patient Identification: Arm Band Structural Data Admitted From: Home Planned Operative Procedure/s: Trial Neurostimulator Lead Placement Consent for Planned Operative Procedure(s) Verified: Yes Verified Documents: Surgical Consent and History and Physical NPO Status Verified Time NPO: 00:00 Additional verifications Anesthesia Reactions: No Hx Blood Transfusions: No Blood Transfusion Reaction: No Airway Assessment Mallampati Score:: Class II C-Spine Mobility Assessed: Yes TMJ Mobility Assessed: Yes Dentition: Edentulous Neurological Assessment Level of Consciousness: Awake and Alert Anesthesia Plan Anesthesia Risk discussed: Yes Anesthesia Plan: Verified ASA Class: III Anesthesia Type: MAC
[2023-09-05 14:49] VITALS: BP 84/54; PULSE 54; RESP 15; TEMP 36.6; O2SAT 99
[2023-09-05 14:59] VITALS: BP 86/58; PULSE 53; RESP 17; O2SAT 99
[2023-09-05 15:09] VITALS: BP 89/55; PULSE 53; RESP 17; O2SAT 99
[2023-09-05 15:19] VITALS: BP 92/58; PULSE 54; RESP 18; TEMP 36.7; O2SAT 99
--- NOTE | 2023-09-05 15:36 | P.OP_ITS ---
Date of procedure: 09/05/23 Pre-op Diagnosis:: Degenerative disc disease of lumbar spine with lumbar radiculopathy symptoms Post-op Diagnosis:: Same Procedure performed:: Spinal cord stimulator trial with epidural lead placement x 2 Surgeon:: Cameron Flores MD KEYBOARD SPECIALIST:: Other Anesthesia: MAC Estimated blood loss (mL): 1 Clinical Note:: The patient is a pleasant 43-year-old white female who we are treating for low back pain with lumbar radiculopathy symptoms and paresthesias with occasional shocking symptoms throughout her body. Most of her pain is in the back and down her legs. She has failed all previous conservative treatments including injections, oral medications, physical therapy and she is not a candidate for surgery. She has had a successful psychological evaluation. She presents for spinal cord stimulator trial today. Operative findings:: None Operative note:: Informed consent was obtained the risk and benefits of the procedure were explained to the patient. Patient was taken the operating room placed prone on the procedure table. She was prepped and draped in sterile fashion. C-arm fluoroscopy was used to view the lumbar spine. The skin and subcutaneous tissues were anesthetized Using lidocaine. I placed a 17-gauge epidural needle advanced into the L2-L3 interspace. After confirmation of needle placement in the epidural space a stimulating lead was inserted and advanced very easily to the T7-T8-T9 vertebral body. A second needle was inserted advanced again into the L2-L3 interspace. Again after confirmation of needle placement in the epidural space a second stimulating lead was inserted and advanced again to the T7-T8-T9 vertebral bodies very easily. Leads were checked in AP and lateral view. The needles and stylets were removed. The leads were secured and the patient was taken recovery in stable condition. The patient tolerated the procedure well with no complications. The patient was programmed by the [email or web address] textile machinery sales representative with good stimulation in all areas of pain. Patient was then discharged home neurologic intact with good relief of pain symptoms. Plan and disposition: Will follow-up with this patient in 1 week for lead pull. If she has any problems or questions she is to call us back in the pain clinic. Condition: stable Disposition: PACU Complications:: None
== END 2023-09-05 15:19 | disposition home or self-care (01) ==
PROVIDERS: PCP Family Medicine; Visit Provider Anesthesiology
PROC: (CPT 62350; principal; 2023-09-05 12:30)
DX: M51.16 Intervertebral disc disorders with radiculopathy, lumbar region (principal)
CPT/HCPCS: 62350 ×2; 96374; C1778; J2405

== ENCOUNTER → 2023-09-10 08:56 | Outpatient (POV) | payer MEDICAID, SELFPAY ==
--- NOTE | 2023-09-10 09:44 | EXP.PAIN.SOA ---
[facility] Pain Management SOAP Note Subjective:: Patient is a pleasant 43-year-old female who presents today for follow-up of spinal cord stimulator trial. We are currently treating the patient for chronic low back pain, chronic pain disorder and paresthesia. Today she rates her pain a 3 out of 10. Patient does state that following the trial she had 100% relief of the electrical shock sensations however she did have significant pain throughout her abdomen and worsening low back pain. Patient states that also caused additional nausea. Patient states that overall she would rather deal with the electrical shock sensations and the worsening low back pain. Patient does have significant pain in her low back that has been going on for more than 8 years along with the paresthesia. She states that the pain is very intense and affects her ability perform activities of daily living such as cooking and cleaning. Patient is currently managed with oxycodone 5 mg 4 times a day from an outside provider and methocarbamol 750 mg 3 times a day from our office. Patient does have a stomach ulcer that she is scheduled to see [facility] this coming up month. Her Dixon has been reviewed and is appropriate. Review of Systems: General: No recent weight changes, no fever, no sleep disturbances Respiratory: No cough, no shortness of air, no recurring pulmonary infections Cardiovascular/peripheral vascular: No chest pain, no palpitations, no edema, no shortness of breath Gastrointestinal: No new onset incontinence, normal bowel movements reported Genitourinary: No new onset incontinence Musculoskeletal: Low back pain, paresthesia Psychiatric: [Normal mood/affect] Neurological: [Denies weakness in extremities], [denies balance issues] Objective:: Physical Exam: General: Alert and oriented x3, no acute distress, pleasant and cooperative Lungs: Respirations even and unlabored, symmetrical chest expansion Eyes: PERRL Musculoskeletal: Flexion and extension of lumbar [spine] somewhat guarded secondary to pain Neurological: Speech clear, no gross sensory deficit Assessment:: Chronic low back pain, chronic pain disorder with paresthesia Plan:: Patient continues to experience significant pain in her low back with electrical shock sensations. I have discussed with the patient since she did not have a successful spinal cord stimulator trial that she may benefit from trying the intrathecal pain pump trial. Risk and benefits and educational handouts were given during today's visit. She states she would like to proceed forward with this plan of care. Patient has already had her psychological evaluation and was deemed an appropriate patient for a implantable device. Patient has tried and failed conservative therapy such as oral medications, heat and ice, topicals, physical therapy, at home stretching exercise for longer than 12 weeks. We will submit to insurance for the intrathecal pain pump trial and contact the patient once we have approval. Patient is not on any blood thinners. Patient has been instructed to contact the clinic with any concerns before the next appointment. Dr. Flores has reviewed this note and agrees with this plan of care. This note was dictated using voice recognition software and make contain errors or omissions. [facility] Disclaimer: The information contained in this section may have been updated after the patient was seen, as this information can be updated by other users. Medical History Anemia BRCA positive H/O chest pain History of palpitations Marijuana abuse Migraine Seizures Surgical History H/O bilateral mastectomy H/O total hysterectomy History of hernia surgery History of surgery on wrist Hx laparoscopic cholecystectomy Hx of appendectomy Hx of bariatric surgery Status post transverse rectus abdominis muscle (TRAM) flap breast reconstructio
[2023-09-10 10:07] VITALS: BP 113/72; PULSE 64; RESP 20; O2SAT 96; BMI 22.1
== END | disposition home or self-care (01) ==
PROVIDERS: PCP Family Medicine; Visit Provider Nurse Practitioner Family
DX: M54.50 Low back pain, unspecified (principal); G89.4 Chronic pain syndrome; R20.2 Paresthesia of skin
CPT/HCPCS: 99212; 99213; G0463

== ENCOUNTER 2023-10-10 09:31 | Day surgery (SDC) | payer MEDICAID, SELFPAY ==
[2023-10-10] VITALS (7 sets, daily range): BP systolic 90–109; BP diastolic 52–74; PULSE 69–115; RESP 16–18; O2SAT 96–99; BMI 20.5
[2023-10-10] MEDS: FENTANYL 100MCG/2ML VIAL 100 MCG (09:51)
[2023-10-10] MEDS: CEFAZOLIN SODIUM 1 GM in 0.9 % SODIUM CHLORIDE 50 ML IV (09:51)
[2023-10-10] MEDS: LIDOCAINE 1% 30ML PF VIAL 30 ML (09:51)
[2023-10-10] MEDS: diphenhydrAMINE 25MG CAPSULE 25 MG PO (10:10)
--- NOTE | 2023-10-10 11:42 | EXP.PAIN.PRO ---
Procedure Date: 10/10/23 Time: 11:43 Anesthesiologist:: Cameron Flores MD Complications:: None Pre-procedure Diagnosis:: Low back pain with lumbar radicular symptoms with paresthesia Post-procedure Diagnosis:: Same Indications for Procedure:: The patient is a pleasant 43-year-old white female who we have been treating for low back pain with paresthesias and electrical shock sensations throughout her low back legs and entire body. She has failed spinal cord stimulator trial. She has failed all other conservative treatments including injections, oral medications, physical therapy and she is not a surgical candidate. She has had a successful psychological evaluation. She presents for intrathecal pump trial today. Procedure Details:: Pain pump trial Informed consent was obtained and the risk and benefits of the procedure was explained to the patient. The patient was taken to the procedure room and placed prone on the procedure table. Patient was prepped and draped in sterile fashion. C-arm fluoroscopy was used to view the lumbar spine. The skin and subcutaneous tissues were anesthetized using lidocaine. I placed a 18-gauge spinal needle into the L4-5 interspace and advanced until clear CSF was obtained. After this intrathecal catheter was inserted and advanced very easily to the L1 vertebral body. The needle was withdrawn. We were able to freely withdraw clear CSF through the catheter. We then injected intrathecal opioid single shot bolus of 25 mcg followed by saline and followed by the previous CSF that was withdrawn. The needle and catheter were then removed and a Band-Aid was placed. Patient tolerated the procedure well with no complications. We reevaluated the patient after 30 minutes to 1 hour. Patient did have significant relief of her pain symptoms. She was 80 to 90% better. She was also much more functional. She was discharged home neurologic intact with good relief of pain symptoms. Plan and Disposition:: Plan and disposition: We will follow-up with this patient in 1 week to assess efficacy of this trial. If successful we will plan on permanent placement with intrathecal morphine 1 mg per mall to start at 100 mcg/day.
== END 2023-10-10 11:11 | disposition home or self-care (01) ==
LOC: SC.PAINP 09:32
PROVIDERS: PCP Family Medicine; Visit Provider Anesthesiology
DX: M54.16 Radiculopathy, lumbar region (principal); M54.50 Low back pain, unspecified; R20.2 Paresthesia of skin
CPT/HCPCS: 62323

== ENCOUNTER → 2023-10-20 08:47 | Outpatient (POV) | payer MEDICAID, SELFPAY ==
[2023-10-20 09:03] VITALS: BP 117/88; PULSE 82; RESP 18; O2SAT 99; BMI 20.5
--- NOTE | 2023-10-20 09:15 | A.OFFVIS_ITS ---
[facility] Pain Management SOAP Note Subjective:: Patient is a pleasant 43-year-old female who presents today for follow-up of intrathecal pain pump trial on 10/10/2023. We are currently treating the patient for chronic low back pain, chronic pain disorder and paresthesia. Today she rates her pain a 6 out of 10. Patient denies any new trauma or injury. Patient does state that she had 100% relief following this procedure for approximately 4 hours or more. Patient states she was able to increase her activity and even eats and take a bath without having electrical shock sensations. Patient does state that she felt more functional and denies any side effects from this procedure. Today she is back to her baseline and states that she does struggle with doing the simplest activities including cooking or cleaning or even simple ambulation due to the shock sensations. Patient had previously tried the spinal cord stimulator trial and did have successful relief however had additional pain all over her abdomen and low back with nausea. Patient states that the good did not out way the bad symptoms and she did not want to proceed forward with that device. Patient does state today that she does want to proceed forward with the intrathecal pump implant. Patient states this is the best she has felt in 8 years. Patient has been experiencing paresthesia for that timeframe with almost electrical shock sensations throughout her body. Patient has tried and failed conservative treatments such as oral medications including oxycodone, tramadol and gabapentin in the past along with heat and ice and topicals, physical therapy and at home stretching and exercise for longer than 12 weeks. Patient has also tried tujm-juo-ovqnosv medications such as Tylenol and ibuprofen with no additional relief. Patient does have a history of stomach ulcer and is seeing [facility] for this. Her Dixon has been reviewed and is appropriate. Review of Systems: General: No recent weight changes, no fever, no sleep disturbances Respiratory: No cough, no shortness of air, no recurring pulmonary infections Cardiovascular/peripheral vascular: No chest pain, no palpitations, no edema, no shortness of breath Gastrointestinal: No new onset incontinence, normal bowel movements reported Genitourinary: No new onset incontinence Musculoskeletal: Low back pain, electrical shock sensations throughout body Psychiatric: [Normal mood/affect] Neurological: [Denies weakness in extremities], [denies balance issues] Objective:: Physical Exam: General: Alert and oriented x3, no acute distress, pleasant and cooperative Lungs: Respirations even and unlabored, symmetrical chest expansion Eyes: PERRL Musculoskeletal: Flexion and extension of lumbar [spine] somewhat guarded secondary to pain, [antalgic gait noted] Neurological: Speech clear, no gross sensory deficit Assessment:: Chronic low back pain, chronic pain disorder with paresthesia Plan:: Patient did have 100% improvement following her intrathecal pain pump trial with no side effects and did feel more functional with decreased pain. Patient has tried and failed conservative treatments such as oral medications, heat and ice, topicals, physical therapy, at home stretching exercise for longer than 12 weeks. I have discussed that she may benefit for a of the intrathecal pain pump implant. Risk and benefits were discussed with the patient and she would like to proceed forward with this plan of care. We will submit to insurance for the intrathecal pump implant and contact the patient once we have official approval. Patient is agreeable to go to what ever location to get this done the quickest. Patient did have her intrathecal catheter advanced to the L1 vertebral body during the trial. Patient's pump will be started with morphine 1 mg/mL. Patient has been instructed to contact the clinic with any concerns before the next appointment. Dr. Flores has reviewed this note and agrees with this plan of care. This note was dictated using voice recognition software and make contain errors or omissions. [facility] Disclaimer: The information contained in this section may have been updated after the patient was seen, as this information can be updated by other users. Medical History Anemia BRCA positive H/O chest pain History of palpitations Marijuana abuse Migraine Seizures Surgical History H/O bilateral mastectomy H/O total hysterectomy History of hernia surgery History of surgery on wrist Hx laparoscopic cholecystectomy Hx of appendectomy Hx of bariatric surgery Status post transverse rectus abdominis muscle (TRAM) flap breast reconstruction Family History Other Family history of cancer Family history of diabetes mellitus type II Family history of hypertension Social History Smoking Status: Former smoker tobacco type: cigarettes packs per day: 2 second hand exposure: Yes alcohol intake: current substance use type: marijuana current occupational status: other Travel in the last 8 weeks: None household members: spouse housing: house current occupation: [employer] current occupational exposures/hazards: No caffeine: Yes
== END ==
LOC: SC.PAIN 08:47
PROVIDERS: PCP Pediatrics; Visit Provider Nurse Practitioner Family
DX: M54.50 Low back pain, unspecified (principal); G89.4 Chronic pain syndrome; R20.2 Paresthesia of skin
CPT/HCPCS: 99212; G0463

== ENCOUNTER → 2023-10-30 11:26 | Outpatient (POV) | payer MEDICAID, SELFPAY ==
--- NOTE | 2023-10-30 12:03 | EXP.PAIN.SOA ---
[facility] Pain Management SOAP Note Subjective:: Patient is a pleasant 43-year-old female who presents today for follow-up. We are currently treating the patient for chronic low back pain, chronic pain syndrome and paresthesia. Today she rates her pain a 5 out of 10. Patient denies any new trauma or injury. Patient is currently waiting to get approval for her pain pump implant however she states that the pain is very hard to deal with on a daily basis. Patient states the pain is constant with electrical shock sensations. She is requesting if there is something that we can prescribe until she gets her pump placed. Her Dixon has been reviewed and is appropriate. Review of Systems: General: No recent weight changes, no fever, no sleep disturbances Respiratory: No cough, no shortness of air, no recurring pulmonary infections Cardiovascular/peripheral vascular: No chest pain, no palpitations, no edema, no shortness of breath Gastrointestinal: No new onset incontinence, normal bowel movements reported Genitourinary: No new onset incontinence Musculoskeletal: Low back pain Psychiatric: [Normal mood/affect] Neurological: [Denies weakness in extremities], [denies balance issues] Objective:: Physical Exam: General: Alert and oriented x3, no acute distress, pleasant and cooperative Lungs: Respirations even and unlabored, symmetrical chest expansion Eyes: PERRL Musculoskeletal: Flexion and extension of lumbar [spine] somewhat guarded secondary to pain, [antalgic gait noted] Neurological: Speech clear, no gross sensory deficit Assessment:: Chronic low back pain, chronic pain syndrome with paresthesia Plan:: Patient continues to have chronic pain on a daily basis. I have counseled the patient that I will contact Dr. Flores regarding prescribing something in the meantime while we are waiting for insurance approval on her intrathecal pain pump. Patient will return to clinic in 1 month for reevaluation of symptoms and plan of care. We will send in a prescription of duloxetine 30 mg twice daily and provide a 1 month supply of this medication. Patient has been instructed to contact the clinic with any concerns before the next appointment. Dr. Flores has reviewed this note and agrees with this plan of care. This note was dictated using voice recognition software and make contain errors or omissions. [facility] Disclaimer: The information contained in this section may have been updated after the patient was seen, as this information can be updated by other users. Medical History Anemia BRCA positive H/O chest pain History of palpitations Marijuana abuse Migraine Seizures Surgical History H/O bilateral mastectomy H/O total hysterectomy History of hernia surgery History of surgery on wrist Hx laparoscopic cholecystectomy Hx of appendectomy Hx of bariatric surgery Status post transverse rectus abdominis muscle (TRAM) flap breast reconstruction Family History Other Family history of cancer Family history of diabetes mellitus type II Family history of hypertension Social History Smoking Status: Former smoker tobacco type: cigarettes packs per day: 2 second hand exposure: Yes alcohol intake: current substance use type: marijuana current occupational status: other Travel in the last 8 weeks: None household members: spouse housing: house current occupation: [employer] current occupational exposures/hazards: No caffeine: Yes
[2023-10-30 12:35] VITALS: BP 120/80; PULSE 94; RESP 18; O2SAT 95; BMI 21.4
== END | disposition home or self-care (01) ==
PROVIDERS: Visit Provider Nurse Practitioner Family
DX: M54.50 Low back pain, unspecified (principal); G89.4 Chronic pain syndrome; R20.2 Paresthesia of skin
CPT/HCPCS: 99212; G0463

== ENCOUNTER 2023-10-31 08:12 | Outpatient (CLI) | payer MEDICAID, SELFPAY ==
--- NOTE | 2023-10-31 08:16 | FL_ITS ---
FINAL REPORT CLINICAL HISTORY: GERD WITH ESOPHAGITIS FINDINGS: UPPER GI EXAM HISTORY: Gastroesophageal reflux. Esophagitis. PROCEDURE: The patient ingested barium. Effervescent crystals were also administered. Spot and overhead films were obtained. FINDINGS: The esophagus is normal. There is a small sliding type hiatal hernia. There our postoperative changes of gastric sleeve surgery. There is deformity of the duodenal bulb with apparent anastomosis between the duodenal bulb and jejunum. There appears to be narrowing near this anastomosis. There is mild gastroesophageal reflux.. FLUOROSCOPY TIME: IMPRESSION: Postoperative changes as above with apparent deformity of the duodenal bulb and questionable narrowing just distal to the duodenal bulb. Endoscopic correlation is recommended. Small sliding-type hiatal hernia and mild gastroesophageal reflux. Films reviewed , interpreted and dictated by Dr. Swan. Transcribed by Naveen Gates PA-C. Reviewed, Interpreted and Dictated by Dudley Swan MD Transcribed by JARRED Robbins Authenticated and [facility]
[2023-10-31] MEDS: BARIUM SULFATE (E-Z-HD 340GM);135ML BOTTLE 135 ML PO (08:43)
== END 2023-10-31 23:59 ==
LOC: RAD 08:12
PROVIDERS: PCP Pediatrics; Visit Provider Nurse Practitioner Family
DX: K21.00 Gastro-esophageal reflux disease with esophagitis, without bleeding (principal)
CPT/HCPCS: 74246

== ENCOUNTER 2023-12-03 13:17 | Outpatient (CLI) | payer MEDICAID, SELFPAY ==
[2023-12-03 14:08] LABS: Basophils # 0.1 K/mm3 (0-0.2); Basophils % 1.2 % (0.1-2.0); Eosinophils # 0.1 K/mm3 (0.0-0.4); Eosinophils % 1.3 % (0.1-12.0); Hematocrit 35.3 % (37.0-47.0); Hemoglobin 10.5 g/dL (12.2-16.2); Lymphocytes # 3.8 K/mm3 (0.7-4.5); Lymphocytes % 38.9 % (10-50); Mean Corpuscular HGB Conc 29.7 g/dL (31.8-35.4); Mean Corpuscular Hemoglobin 27.9 pg (27.0-31.2); Mean Corpuscular Volume 93.8 fl (81-99); Monocytes # 0.7 K/mm3 (0.1-1.0); Monocytes % 7.1 % (1.7-9.3); Neutrophils % 51.6 % (37.0-80.0); Platelet Count 443 K/mm3 (142-424); Red Blood Count 3.76 M/mm3 (4.20-5.40); Red Cell Distribution Width 14.9 % (11.5-17.5); White Blood Count 9.7 K/mm3 (4.8-10.8)
[2023-12-03 14:58] LABS: Anion Gap 12.1 mEq/L (5-15); Blood Urea Nitrogen 11 mg/dl (7-17); Carbon Dioxide 19 mmol/L (22.0-30.0); Chloride 110 mmol/L (98-107); Estimated Glomerular Filt Rate 110 ml/min (>60); GFR (African American) 133 ML/MIN (>60); Glucose 79 mg/dl (74-100); Potassium 4.1 mmoL/L (3.5-5.1); Sodium 137 mmol/L (136-145)
[2023-12-03 15:11] LABS: Amphetamine/Metha Screen,Urine Negative ng/ml (<1000)
[2023-12-03 15:12] LABS: Barbiturates Screen,Urine Negative ng/ml (<200); Benzodiazepines Screen,Urine Negative ng/ml (<200)
[2023-12-03 15:13] LABS: Cannabinoid Screen,Urine Positive ng/ml (<50); Cocaine Screen,Urine Negative ng/ml (<300)
[2023-12-03 15:14] LABS: Methadone Screen,Urine Negative ng/ml (<300)
[2023-12-03 15:15] LABS: Opiate Screen,Urine Positive ng/ml (<300); Phencyclidine Screen,Urine Negative ng/ml (<25)
== END 2023-12-03 23:59 ==
LOC: LAB 13:19
PROVIDERS: PCP Pediatrics; Visit Provider Anesthesiology
DX: Z01.812 Encounter for preprocedural laboratory examination (principal); M51.36 Other intervertebral disc degeneration, lumbar region; Z79.899 Other long term (current) drug therapy
CPT/HCPCS: 36415; 80048; 80307; 85025

== ENCOUNTER 2023-12-05 10:06 | Day surgery (SDC) | payer MEDICAID, SELFPAY ==
[2023-12-05 10:35] VITALS: BP 95/54; PULSE 76; RESP 16; TEMP 36.8; O2SAT 100; BMI 22.3
[2023-12-05] MEDS: LACTATED RINGERS 1000ML 1,000 ML 25 ML IV (10:45)
[2023-12-05] MEDS: VANCOMYCIN HCL 1,000 MG in 0.9 % SODIUM CHLORIDE 250 ML 125 MG IV (10:45)
--- NOTE | 2023-12-05 12:51 | EXP.ANES.CKL ---
[facility] Disclaimer: The information contained in this section may have been updated after the patient was seen, as this information can be updated by other users. Medical History History of palpitations BRCA positive Marijuana abuse Seizures Migraine H/O chest pain Anemia Surgical History History of hernia surgery History of surgery on wrist Status post transverse rectus abdominis muscle (TRAM) flap breast reconstruction H/O total hysterectomy Hx of appendectomy Hx laparoscopic cholecystectomy Hx of bariatric surgery H/O bilateral mastectomy Family History Other Family history of cancer Family history of diabetes mellitus type II Family history of hypertension Social History Smoking Status: Former smoker tobacco type: cigarettes packs per day: 2 second hand exposure: Yes alcohol intake: current substance use type: marijuana current occupational status: other Travel in the last 8 weeks: None household members: spouse housing: house current occupation: [employer] current occupational exposures/hazards: No caffeine: Yes [facility] Anesthesia Checklist Patient Identification Patient Identification: Arm Band and Verbal (Name & ) Structural Data Admitted From: Home Planned Operative Procedure/s: Pain pump placement Consent for Planned Operative Procedure(s) Verified: Yes NPO Status Verified Time NPO: 00:00 Additional verifications Anesthesia Reactions: No Hx Blood Transfusions: No Blood Transfusion Reaction: No Airway Assessment Mallampati Score:: Class II C-Spine Mobility Assessed: Yes TMJ Mobility Assessed: Yes Dentition: Edentulous Neurological Assessment Level of Consciousness: Awake Hx Seizures: No Numbness or tingling in extremities: No Anesthesia Plan Anesthesia Risk discussed: Yes Anesthesia Plan: Verified ASA Class: II Anesthesia Type: MAC
[2023-12-05] MEDS: LIDOCAINE 1% W/EPI 1:100,000 20ML VIAL 40 ML (13:30)
[2023-12-05] MEDS: SODIUM CHLORIDE 0.9% 20ML VIAL 20 ML IV (13:35)
[2023-12-05] MEDS: GENTAMICIN 80 MG/2 ML VIAL (13:36)
[2023-12-05 14:10] VITALS: BP 100/74; PULSE 94; RESP 14; O2SAT 100
--- NOTE | 2023-12-05 14:13 | EXP.ANES.I ---
[facility] Anesthesia Record Part I Anesthesia Record I Intake, IV Amount: 800 Hydration: Adequate Estimated blood loss (mL): 25 Urine output (mL): 0 Blood Products used (#): none Blood Pressure: 100/74 SaO2: 99 Pulse Rate: 102 Airway Patency: Patent Respiratory Rate: 16 Temperature: 97.1 F Patient is:: Awake (Talking) and Stable Stable to PACU at:: 14:15
[2023-12-05 14:14] VITALS: BP 100/74; PULSE 102; RESP 16; TEMP 36.2; O2SAT 99
[2023-12-05 14:20] VITALS: BP 102/57; PULSE 80; RESP 17; O2SAT 99
[2023-12-05 14:30] VITALS: BP 102/68; PULSE 65; RESP 17; O2SAT 97
[2023-12-05 14:40] VITALS: BP 115/67; PULSE 67; RESP 18; O2SAT 98
--- NOTE | 2023-12-05 15:25 | P.OP_ITS ---
Date of procedure: 12/05/23 Pre-op Diagnosis:: Degenerative disease of lumbar spine with lumbar radiculopathy symptoms Post-op Diagnosis:: Same Procedure performed:: Permanent placement intrathecal pain pump with tunneled intrathecal catheter and pain pump generator placement Surgeon:: Cameron Flores MD [employer]AT[employer]ILING MACHINE FEEDER:: Delmi Zaldivar Anesthesia: MAC Estimated blood loss (mL): 5 Clinical Note:: The patient is a pleasant 43-year-old white female who we are treating for low back pain with lumbar radicular symptoms. She has increasing pain in her back radiating down both legs. She has failed all previous conservative treatment including injections, oral medications, physical therapy and she is not a candidate for surgery. She had a successful psychological evaluation and a successful intrathecal pump trial. She presents for permanent placement of her intrathecal pain pump today. Operative findings:: None Operative note:: Informed consent was obtained risk and benefits of the procedure were explained to the patient. Patient was taken the operating room placed prone on the procedure table. She was prepped and draped in sterile fashion. C-arm fluoroscopy was used to view the right flank. [place] between the 12th rib and iliac crest the skin and subcutaneous tissues were anesthetized using lidocaine. I made incision dissected out the pump pocket. C-arm fluoroscopy was then used to view the lumbar spine at L4-5 and L5-S1. The skin and subcutaneous tissues adjacent to L4-5 and L5-S1 were anesthetized using lidocaine. I made an incision dissected down to the lumbar paraspinous fascia. A 17-gauge spinal needle was inserted and advanced into the L4-5 interspace until clear CSF was obtained. After this intrathecal catheter was inserted and advanced very easily to the T11 vertebral body. Catheter was in good position it was midline and posterior. The stylette of the catheter and the needle withdrawn. The catheter was secured to the fascia with anchor device and 2-0 Prolene. I filled the pump with 20 mL of intrathecal morphine 1 mg/mL. I tunneled the catheter from the back to the pump pocket and attached catheter to the pump. We are able to fr eely withdraw clear CSF through the sideport. The pump was then placed in the pocket. Both incisions were then closed with 2-0 Vicryl followed by 4-0 nylon and subcutaneous parul. Patient was placed in an abdominal binder taken recovery in stable condition. The patient tolerated the procedure well with no complications. Pump was interrogated and started at 0.1 mg/day of intrathecal morphine. Patient was discharged home neurologic intact with good relief of pain symptoms. Plan and disposition: We will follow-up with this patient in 1 week for reprogramming and wound check. Will follow-up in 2 to 3 weeks for suture removal. Condition: stable Disposition: PACU Complications:: None
== END 2023-12-05 14:42 | disposition home or self-care (01) ==
PROVIDERS: Visit Provider Anesthesiology
PROC: (CPT 62350; principal; 2023-12-05 11:30)
DX: M51.16 Intervertebral disc disorders with radiculopathy, lumbar region (principal)
CPT/HCPCS: 62350; 62362; 96374; C1755; C1772; J3370

== ENCOUNTER 2023-12-10 13:42 | Outpatient (POV) | payer MEDICAID, SELFPAY ==
--- NOTE | 2023-12-10 14:41 | EXP.PAIN.PRO ---
Procedure Date: 12/10/23 Time: 14:41 Anesthesiologist:: Elma Myrick APRN Complications:: None Pre-procedure Diagnosis:: Degenerative disc disease of lumbar spine with lumbar radiculopathy symptoms, electrical shock sensations Post-procedure Diagnosis:: Same Indications for Procedure:: Patient is a pleasant 43-year-old female who presents today for 1 week follow-up of intrathecal pain pump implantation on 12/05/2023. Today she rates her pain a 3 out of 10. Patient does state that she has had improvement in her electrical shock sensations. She states that these are not as frequent since having this pump placed. She does state that she has been experiencing itching all over and denies any rash. She states that she did get some Benadryl however it did not seem to help. Patient also states that she feels like she is not using the restroom to urinate as frequently since having this device placed. Patient does also states she is continue to have some bowel movement issues however this was going on even prior to this procedure and states that she did recently go to her primary care provider who did just prescribe her a different type medication for this. Patient is currently managed with morphine 1 mg/mL with a daily dose of 0.1001 mg/day. Her Dixon has been reviewed and is appropriate. Physical Exam: General: Alert and oriented x3, no acute distress, pleasant and cooperative Lungs: Respirations even and unlabored, symmetrical chest expansion Eyes: PERRL Musculoskeletal: Flexion and extension of lumbar [spine] somewhat guarded secondary to pain, [antalgic gait noted] Neurological: Speech clear, no gross sensory deficit Procedure Details:: Informed consent was obtained and the risk and benefits of the procedure were explained to the patient. Patient was taken to the procedure room where noninvasive monitoring was placed including noninvasive blood pressure cuff and pulse oximeter. Patient's pump was interrogated and was reprogrammed to morphine 0.0068 mg/day. The patient tolerated the procedure well with no complications. Plan and Disposition:: Patient tolerated her decreased with no complications and was discharged to pain intact. Patient will follow-up in 1 week regarding her symptoms and see if those have improved. At her next visit if she is still having the itching we will discuss ordering her some hydroxyzine. Patient will return to clinic in 1 week for reevaluation of symptoms and plan of care. Patient has been instructed to contact the clinic with any concerns before the next appointment. Dr. Flores has reviewed this note and agrees with this plan of care. This note was dictated using voice recognition software and make contain errors or omissions. -- It Is medically necessary for this patient to continue to have their intrathecal pump refilled at regular intervals. This patient had an intrathecal pain pump implanted after meeting criteria of chronic intractable pain for greater than 3 months and failing conservative treatments. Patient has committed and been compliant to the treatment plan and all planned follow up care. Since implantation of the intrathecal pain pump, the patient has had decreased pain and been more functional. Oral medications have been reduced including intake of oral opioids. Patient continues to do well with intrathecal therapy with decrease in pain symptoms and increase in functional status. Stopping intrathecal medications can lead to life threatening withdrawal, seizures, cardiac arrest, severe pain, and possible . Pumps that are not refilled at regular intervals can be damages and cause and need for replacement. We continually titrate dose and concentration to optimize pain relief and function. We are limited in concentration for certain drugs to safely deliver medications through the pump and stay within the recommendations from the Polyanalgesic Consensus Committee Guidelines. Depending on dose and concentration these pumps may need to be refilled sooner than 3 months as we titrate.
[2023-12-10 14:50] VITALS: BP 106/60; PULSE 75; RESP 20; O2SAT 99; BMI 22.3
== END 2023-12-10 23:59 | disposition home or self-care (01) ==
PROVIDERS: PCP Pediatrics; Visit Provider Nurse Practitioner Family
DX: M51.16 Intervertebral disc disorders with radiculopathy, lumbar region (principal); R20.9 Unspecified disturbances of skin sensation; Z97.8 Presence of other specified devices; Z45.1 Encounter for adjustment and management of infusion pump
CPT/HCPCS: 62368; 99213; G0463

== ENCOUNTER 2023-12-18 14:48 | Outpatient (POV) | payer MEDICAID, SELFPAY ==
[2023-12-18 14:59] VITALS: BP 122/70; PULSE 69; RESP 18; O2SAT 100; BMI 22.3
--- NOTE | 2023-12-18 15:03 | EXP.PAIN.PRO ---
Procedure Date: 12/18/23 Time: 15:03 Anesthesiologist:: Elma Myrick APRN Complications:: None Pre-procedure Diagnosis:: Degenerative disc disease of lumbar spine with lumbar radiculopathy symptoms, paresthesia Post-procedure Diagnosis:: Same Indications for Procedure:: Patient is a pleasant 43-year-old female who presents today for 2 week follow-up of intrathecal pain pump implantation on 12/05/2023. Today she rates her pain a 3 out of 10. She denies any new trauma or injury. From our last visit where we did decrease her overall pump settings she states that the itching is now gone. She states that she does still have the electrical shock sensations and feels like they are about the same as they had prior. Patient does state that her bowel and bladder are fine and moving correctly and has no concerns regarding her pump. Patient states she is still using her abdominal binder. Patient is currently managed with morphine 1 mg/mL with a daily dose of 0.0068 mg/day. Her Dixon has been reviewed and is appropriate. Physical Exam: General: Alert and oriented x3, no acute distress, pleasant and cooperative Lungs: Respirations even and unlabored, symmetrical chest expansion Eyes: PERRL Musculoskeletal: Flexion and extension of lumbar [spine] somewhat guarded secondary to pain, [antalgic gait noted] Neurological: Speech clear, no gross sensory deficit Skin: Incision sites clean, dry, well-approximated with sutures intact and minimal erythema noted Procedure Details:: Informed consent was obtained and the risk and benefits of the procedure were explained to the patient. Patient was taken to the procedure room where noninvasive monitoring was placed including noninvasive blood pressure cuff and pulse oximeter. Patient's pump was interrogated and was reprogrammed to morphine 0.0481 mg/day. The patient tolerated the procedure well with no complications. Plan and Disposition:: Patient tolerated her intrathecal increase with no complications and was discharged neurologically intact. I have counseled the patient that we will plan on seeing her back next week to remove her sutures. I have explained to her to continue her full 6-week postop restrictions. Patient acknowledges understanding. I have explained to her if the itching does start to increase that she can call her office first thing Friday to get in sooner and that if it does increase we may have to change her intrathecal medication to something different. We will follow-up with this at her next visit. Patient will return to clinic in 1 week for reevaluation of symptoms and suture removal. Patient has been instructed to contact the clinic with any concerns before the next appointment. Dr. Flores has reviewed this note and agrees with this plan of care. This note was dictated using voice recognition software and make contain errors or omissions. -- It Is medically necessary for this patient to continue to have their intrathecal pump refilled at regular intervals. This patient had an intrathecal pain pump implanted after meeting criteria of chronic intractable pain for greater than 3 months and failing conservative treatments. Patient has committed and been compliant to the treatment plan and all planned follow up care. Since implantation of the intrathecal pain pump, the patient has had decreased pain and been more functional. Oral medications have been reduced including intake of oral opioids. Patient continues to do well with intrathecal therapy with decrease in pain symptoms and increase in functional status. Stopping intrathecal medications can lead to life threatening withdrawal, seizures, cardiac arrest, severe pain, and possible . Pumps that are not refilled at regular intervals can be damages and cause and need for replacement. We continually titrate dose and concentration to optimize pain relief and function. We are limited in concentration for certain drugs to safely deliver medications through the pump and stay within the recommendations from the Polyanalgesic Consensus Committee Guidelines. Depending on dose and concentration these pumps may need to be refilled sooner than 3 months as we titrate.
== END 2023-12-18 23:59 | disposition home or self-care (01) ==
PROVIDERS: PCP Family Medicine; Visit Provider Nurse Practitioner Family
DX: M51.16 Intervertebral disc disorders with radiculopathy, lumbar region (principal); R20.2 Paresthesia of skin; Z97.8 Presence of other specified devices; Z45.1 Encounter for adjustment and management of infusion pump
CPT/HCPCS: 62368; 99213; G0463

== ENCOUNTER 2023-12-25 14:29 | Outpatient (POV) | payer MEDICAID, SELFPAY ==
--- NOTE | 2023-12-25 15:23 | A.OFFVIS_ITS ---
[facility] Pain Management SOAP Note Subjective:: Patient is a pleasant 43-year-old female who presents today for follow-up. We are currently treating the patient for degenerative disc disease of lumbar spine with lumbar radiculopathy symptoms, paresthesia. Today she rates her pain a 6 out of 10. Patient denies any new trauma or injury. She does state that with her last pump increase she did have overall improvement of her electrical shock sensations however she did also increase in itching symptoms. Patient does state the itching is all over and is very bothersome. Patient denies any other side effects to her pump medication. She is currently managed with morphine 1 mg/mL with a daily dose of 0.0481 mg/day. Her Dixon has been reviewed and is appropriate. Review of Systems: General: No recent weight changes, no fever, no sleep disturbances Respiratory: No cough, no shortness of air, no recurring pulmonary infections Cardiovascular/peripheral vascular: No chest pain, no palpitations, no edema, no shortness of breath Gastrointestinal: No new onset incontinence, normal bowel movements reported Genitourinary: No new onset incontinence Musculoskeletal: Electrical shock sensation, low back pain Psychiatric: [Normal mood/affect] Neurological: [Denies weakness in extremities], [denies balance issues] Objective:: Physical Exam: General: Alert and oriented x3, no acute distress, pleasant and cooperative Lungs: Respirations even and unlabored, symmetrical chest expansion Eyes: PERRL Musculoskeletal: Flexion and extension of lumbar [spine] somewhat guarded secondary to pain, [antalgic gait noted] Neurological: Speech clear, no gross sensory deficit Assessment:: Degenerative disc disease of lumbar spine with lumbar radiculopathy symptoms, paresthesia Plan:: Pump forDue to the patient's increased itching with higher pump increase I have counseled the patient that we will plan on switching out her pump medications. Patient acknowledges understanding. I did discuss with the patient that we could decrease her current pump settings however most likely she would experience more shocklike sensations but would have less itching or we can leave the pump currently at its settings until we change out her pump medications. Patient has requested that we leave the pump settings currently alone and then just add the new medicine in the pump at the next available date possible. We will plan on changing the pump medication to bupivacaine 5 mg/mL with a daily dose of 2.5 mg/day per Dr. Flores's specifications. We will see the patient back in the clinic at the next intrathecal refill. Patient has been instructed to contact the clinic with any concerns before the next appointment. Dr. Flores has reviewed this note and agrees with this plan of care. This note was dictated using voice recognition software and make contain errors or omissions. -- It Is medically necessary for this patient to continue to have their intrathecal pump refilled at regular intervals. This patient had an intrathecal pain pump implanted after meeting criteria of chronic intractable pain for greater than 3 months and failing conservative treatments. Patient has committed and been compl iant to the treatment plan and all planned follow up care. Since implantation of the intrathecal pain pump, the patient has had decreased pain and been more functional. Oral medications have been reduced including intake of oral opioids. Patient continues to do well with intrathecal therapy with decrease in pain symptoms and increase in functional status. Stopping intrathecal medications can lead to life threatening withdrawal, seizures, cardiac arrest, severe pain, and possible . Pumps that are not refilled at regular intervals can be damages and cause and need for replacement. We continually titrate dose and concentration to optimize pain relief and function. We are limited in concentration for certain drugs to safely deliver medications through the pump and stay within the recommendations from the Polyanalgesic Consensus Committee Guidelines. Depending on dose and concentration these pumps may need to be refilled sooner than 3 months as we titrate. [facility] Disclaimer: The information contained in this section may have been updated after the patient was seen, as this information can be updated by other users. Medical History History of palpitations BRCA positive Marijuana abuse Seizures Migraine H/O chest pain Anemia Surgical History History of hernia surgery History of surgery on wrist Status post transverse rectus abdominis muscle (TRAM) flap breast reconstruction H/O total hysterectomy Hx of appendectomy Hx laparoscopic cholecystectomy Hx of bariatric surgery H/O bilateral mastectomy Family History Other Family history of cancer Family history of diabetes mellitus type II Family history of hypertension Social History Smoking Status: Former smoker tobacco type: cigarettes packs per day: 2 second hand exposure: Yes alcohol intake: current substance use type: marijuana current occupational status: other Travel in the last 8 weeks: None household members: spouse housing: house current occupation: [employer] current occupational exposures/hazards: No caffeine: Yes
[2023-12-25 15:32] VITALS: BP 102/68; PULSE 75; RESP 18; O2SAT 100; BMI 22.3
== END 2023-12-25 23:59 ==
LOC: SC.PAIN 14:29
PROVIDERS: PCP Pediatrics; Visit Provider Nurse Practitioner Family
DX: M51.16 Intervertebral disc disorders with radiculopathy, lumbar region (principal); R20.2 Paresthesia of skin
CPT/HCPCS: 62368; 99212; 99213; G0463

== ENCOUNTER 2024-01-09 09:31 | Day surgery (SDC) | payer MEDICAID, SELFPAY ==
[2024-01-09 09:43] VITALS: BP 104/69; PULSE 92; RESP 18; TEMP 36.3; O2SAT 100; BMI 22.3
[2024-01-09 10:39] VITALS: BP 98/63; PULSE 65; RESP 18; O2SAT 98
[2024-01-09 10:42] VITALS: BP 98/63; PULSE 75; RESP 18; O2SAT 98
[2024-01-09 11:01] VITALS: BP 107/68; PULSE 60; RESP 18; O2SAT 100
--- NOTE | 2024-01-09 14:19 | EXP.PAIN.PRO ---
Procedure Date: 01/09/24 Time: 14:19 Anesthesiologist:: Cameron Flores MD Complications:: None Pre-procedure Diagnosis:: Degenerative disc disease of lumbar spine with lumbar radiculopathy symptoms Post-procedure Diagnosis:: Same Indications for Procedure:: The patient is a pleasant 43-year-old white female who currently has an intrathecal morphine pain pump in place. She is not getting any relief with the intrathecal morphine. Also she is itching and having severe side effects. We are refilling her pump today and switching her over to intrathecal bupivacaine. She does have antalgic gait. Motor strength of lower extremities is 5/5. There is no gross sensory deficit. Dixon and drug screen are all appropriate. Will refill her pump with intrathecal bupivacaine 5 mg/mL today. Will start at 2.5 mg/day. This will be a double catheter aspiration to get all morphine out of her pump Procedure Details:: Informed consent was obtained and the risks and benefits of the procedure was explained to the patient. The patient was taken to the procedure room. The pump was interrogated. The area over the pump was prepped using ChloraPrep. The pump was accessed with a 22-gauge needle. Approximately 18 mL's of the intrathecal solution was withdrawn and discarded. The pump was then refilled with 20 mL's of intrathecal bupivacaine 5 mg/mL. This was a double catheter aspiration of the catheter aspiration port to get all morphine out of her pump. The pump was interrogated and the infusion was started at 2.5 mg/day the patient tolerated the procedure well with no complication. Plan and Disposition:: Will follow-up with this patient in 1 to 2 weeks. Will assess efficacy of this change in medication. Hopefully this will help with her shocking sensations and this should definitely decrease any side effects and itching should resolve. Refill date is on or before Feb 13 2024
== END 2024-01-09 11:06 | disposition home or self-care (01) ==
LOC: SC.PAINP 09:31
PROVIDERS: Visit Provider Anesthesiology
DX: M51.16 Intervertebral disc disorders with radiculopathy, lumbar region (principal); Z97.8 Presence of other specified devices; Z45.1 Encounter for adjustment and management of infusion pump
CPT/HCPCS: 62370

== ENCOUNTER 2024-01-14 11:03 | Outpatient (POV) | payer MEDICAID, SELFPAY ==
[2024-01-14 11:04] VITALS: BP 113/69; PULSE 61; RESP 18; O2SAT 100; BMI 22.3
--- NOTE | 2024-01-14 11:46 | P.PCN_ITS ---
Procedure Date: 01/14/24 Time: 11:46 Anesthesiologist:: Elma Myrick APRN Complications:: None Pre-procedure Diagnosis:: Degenerative disc disease of lumbar spine with lumbar radiculopathy symptoms, paresthesia Post-procedure Diagnosis:: Same Indications for Procedure:: Patient is a pleasant 43-year-old female who presents today for intrathecal adjustment and reprogram. We did recently change out her pump medication to bupivacaine 5 mg/mL with a daily dose of 2.5018 mg/day. Patient denies any side effects from this medication. Patient was experiencing severe itching with the morphine. She does state that this is completely resolved and she is not having any problems urinating or having bowel movements. Patient denies any side effects from this medication. She does state that she has had significant improvement overall of the paresthesia feelings that went from about 300 e pisodes per day down to about 42 nail. Patient does state when she has these they are still severe and she feels like she could still use additional adjustment of her pump medication. Her Dixon has been reviewed and is appropriate. Physical Exam: General: Alert and oriented x3, no acute distress, pleasant and cooperative Lungs: Respirations even and unlabored, symmetrical chest expansion Eyes: PERRL Musculoskeletal: Flexion and extension of lumbar [spine] somewhat guarded secondary to pain, [antalgic gait noted] Neurological: Speech clear, no gross sensory deficit Procedure Details:: Informed consent was obtained and the risk and benefits of the procedure were explained to the patient. Patient was taken to the procedure room where annalee nvasive monitoring was placed including noninvasive blood pressure cuff and pulse oximeter. Patient's pump was interrogated and was reprogrammed to bupivacaine 2.75 mg/day. The patient tolerated the procedure well with no complications. Plan and Disposition:: Patient tolerated her intrathecal increase with no complications and was discharged neurologically intact. Patient does have her intrathecal refill scheduled at the beginning of January. We will plan on seeing her back in 1 month for reevaluation of symptoms and plan of care. We will see the patient back in the clinic at the next intrathecal refill. Patient has been instructed to contact the clinic with any concerns before the next appointment. Dr. Flores has reviewed this note and agrees with this plan of care. This note was dictated using voice recognition software and make contain errors or omissions. -- It Is medically necessary for this patient to continue to have their intrathecal pump refilled at regular intervals. This patient had an intrathecal pain pump implanted after meeting criteria of chronic intractable pain for greater than 3 months and failing conservative treatments. Patient has committed and been compliant to the treatment plan and all planned follow up care. Since implantation of the intrathecal pain pump, the patient has had decreased pain and been more functional. Oral medications have been reduced including intake of oral opioids. Patient continues to do well with intrathecal therapy with decrease in pain symptoms and increase in functional status. Stopping intrathecal medications can lead to life threatening withdrawal, seizures, cardiac arrest, severe pain, and possible . Pumps that are not refilled at regular intervals can be damages and cause and need for replacement. We continually titrate dose and concentration to optimize pain relief and function. We are limited in concentration for certain drugs to safely deliver medications through the pump and stay within the recommendations from the Polyanalges[employer] Consensus Committee Guidelines. Depending on dose and concentration these pumps may need to be refilled sooner than 3 months as we titrate.
== END 2024-01-14 23:59 | disposition home or self-care (01) ==
PROVIDERS: PCP Pediatrics; Visit Provider Nurse Practitioner Family
DX: M51.16 Intervertebral disc disorders with radiculopathy, lumbar region (principal); R20.2 Paresthesia of skin; Z97.8 Presence of other specified devices; Z45.1 Encounter for adjustment and management of infusion pump
CPT/HCPCS: 62368; 99213; G0463

== ENCOUNTER 2024-02-03 10:33 | Day surgery (SDC) | payer MEDICAID, SELFPAY ==
[2024-02-03 10:47] VITALS: BP 100/70; PULSE 79; RESP 18; TEMP 36.6; O2SAT 98; BMI 22.3
[2024-02-03 11:11] VITALS: BP 121/73; PULSE 59; RESP 18; O2SAT 99
[2024-02-03 11:12] VITALS: BP 121/73; PULSE 63; RESP 18; O2SAT 99
[2024-02-03 11:22] VITALS: BP 113/73; PULSE 64; RESP 18; O2SAT 100
--- NOTE | 2024-02-03 11:29 | EXP.PAIN.PRO ---
Procedure Date: 02/03/24 Time: 11:20 Anesthesiologist:: Pete Freire CRNA Complications:: None Pre-procedure Diagnosis:: Degenerative disc lumbar spine multilevels. Lumbar radiculopathy. Post-procedure Diagnosis:: Same. Indications for Procedure:: Patient is a pleasant 43-year-old female comes to clinic today for intrathecal pain pump interrogation refill. She is currently being managed with bupivacaine 5 mg/mL at a rate of 2.75 mg/day. Patient asking for a slight increase today due to increase in low back pain as well as bilateral hip and leg radicular symptoms at times. I think it is reasonable to give her a 5% increase. Her last increase was on 01/14/2024. She rates her pain today 5/10. Procedure Details:: Details of the procedure explained to the patient. The patient taken procedure and placed in sitting position. The area of the pump is cleansed using chlorhexidine's cleansing solution. The pump was interrogated. The pump was accessed with ease using a 22-gauge inch and half needle. 6 mL of solution was withdrawn discarded appropriate. The pump was then filled with 20 cc of solution containing bupivacaine 5 mg/mL. The rate will be increased by 5%. Her new intrathecal pain pump rate of bupivacaine is 2.8856 mg/day. Patient tolerated procedure without difficulty. There are no complications. Plan and Disposition:: Patient was discharged without incident.
== END 2024-02-03 11:22 | disposition home or self-care (01) ==
LOC: SC.PAINP 10:34
PROVIDERS: PCP Family Medicine; Visit Provider Nurse Anesthetist, Certified Registered
DX: M51.16 Intervertebral disc disorders with radiculopathy, lumbar region (principal); Z97.8 Presence of other specified devices; Z45.1 Encounter for adjustment and management of infusion pump
CPT/HCPCS: 62370

== ENCOUNTER 2024-02-12 11:02 | Outpatient (POV) | payer MEDICAID, SELFPAY ==
--- NOTE | 2024-02-12 11:27 | P.PCN_ITS ---
Procedure Date: 02/12/24 Time: 11:14 Anesthesiologist:: Elma Myrick APRN Complications:: None Pre-procedure Diagnosis:: degenerative disc disease of lumbar spine with lumbar radiculopathy symptoms, paresthesia Post-procedure Diagnosis:: Same Indications for Procedure:: Patient is a pleasant 43-year-old female who presents today for intrathecal adjustment and reprogram. Patient does state at her last refill she did have a 5% increase and she felt like this did help however she thinks that she could still use a little additional adjustment. She is currently managed with bupivacaine 5 mg/mL with a daily dose of 2.8856 mg/day. She denies any side effects from this medication. Her Dixon has been reviewed and is appropriate. Physical Exam: General: Alert and oriented x3, no acute distress, pleasant and cooperative Lungs: Respirations even and unlabored, symmetrical chest expansion Eyes: PERRL Musculoskeletal: Flexion and extension of lumbar [spine] somewhat guarded secondary to pain, [antalgic gait noted] Neurological: Speech clear, no gross sensory deficit Procedure Details:: Informed consent was obtained and the risk and benefits of the procedure were explained to the patient. Patient was taken to the procedure room where noninvasive monitoring was placed including noninvasive blood pressure cuff and pulse oximeter. Patient's pump was interrogated and was reprogrammed to bupivacaine 3.0-6 6 mg/day. The patient tolerated the procedure well with no complications. Plan and Disposition:: Patient tolerated her intrathecal increase with no complications and was dis charged neurologically intact. Patient will return to clinic on or before her next intrathecal refill date. We will see the patient back in the clinic at the next intrathecal refill. Patient has been instructed to contact the clinic with any concerns before the next appointment. Dr. Flores has reviewed this note and agrees with this plan of care. This note was dictated using voice recognition software and make contain errors or omissions. -- It Is medically necessary for this patient to continue to have their intrathecal pump refilled at regular intervals. This patient had an intrathecal pain pump implanted after meeting criteria of chronic intractable pain for greater than 3 months and failing conservative treatments. Patient has committed and been compliant to the treatment plan and all planned follow up care. Since implantation of the intrathecal pain pump, the patient has had decreased pain and been more functional. Oral medications have been reduced including intake of oral opioids. Patient continues to do well with intrathecal therapy with decrease in pain symptoms and increase in functional status. Stopping intrathecal medications can lead to life threatening withdrawal, seizures, cardiac arrest, severe pain, and possible . Pumps that are not refilled at regular intervals can be damages and cause and need for replacement. We continually titrate dose and concentration to optimize pain relief and function. We are limited in concentration for certain drugs to safely deliver medications through the pump and stay within the recommendations from the Polyanalges[employer] Consensus Committee Guidelines. Depending on dose and concentration these pumps may need to be refilled sooner than 3 months as we titrate.
[2024-02-12 11:35] VITALS: BP 101/65; PULSE 76; RESP 18; O2SAT 98; BMI 22.3
== END 2024-02-12 23:59 | disposition home or self-care (01) ==
PROVIDERS: PCP Pediatrics; Visit Provider Nurse Practitioner Family
DX: M51.16 Intervertebral disc disorders with radiculopathy, lumbar region (principal); R20.2 Paresthesia of skin; Z97.8 Presence of other specified devices; Z45.1 Encounter for adjustment and management of infusion pump
CPT/HCPCS: 62368; 99212; G0463

== ENCOUNTER 2024-02-19 14:52 | Outpatient (POV) | payer MEDICAID, SELFPAY ==
--- NOTE | 2024-02-19 15:16 | P.PCN_ITS ---
Procedure Date: 02/19/24 Time: 15:16 Anesthesiologist:: Elma Myrick APRN Complications:: None Pre-procedure Diagnosis:: Degenerative disc disease of lumbar spine with lumbar radiculopathy symptoms, paresthesia Post-procedure Diagnosis:: Same Indications for Procedure:: Patient is a pleasant 43-year-old female who presents today for intrathecal adjustment and reprogram. She rates her pain a 7 out of 10. Patient denies any new trauma or injury. She does state that the last increase did help some however she still continues to have intense electrical shock sensations. Patient is requesting an increase of her intrathecal pain medication. She is currently managed with bupivacaine 5 mg/mL with a daily dose of 3.0266 mg/day. She denies any side effects from this medication. Her Dixon has been reviewed and is appropriate. Physical Exam: General: Alert and oriented x3, no acute distress, pleasant and cooperative Lungs: Respirations even and unlabored, symmetrical chest expansion Eyes: PERRL Musculoskeletal: Flexion and extension of lumbar [spine] somewhat guarded secondary to pain, [antalgic gait noted] Neurological: Speech clear, no gross sensory deficit Procedure Details:: Informed consent was obtained and the risk and benefits of the procedure were explained to the patient. Patient was taken to the procedure room where noninvasive monitoring was placed including noninvasive blood pressure cuff and pulse oximeter. Patient's pump was interrogated and was reprogrammed to bupivacaine 3.3331 mg/day. The patient tolerated the procedure well with no complications. Plan and Disposition:: Patient tolerated her intrathecal increase with no complications and was discharged neurologically intact. Patient will return to clinic in 1 month for reevaluation of symptoms and plan of care. Patient has been instructed to contact the clinic with any concerns before the next appointment. Dr. Flores has reviewed this note and agrees with this plan of care. This note was dictated using voice recognition software and make contain errors or omissions. -- It Is medically necessary for this patient to continue to have their intrathecal pump refilled at regular intervals. This patient had an intrathecal pain pump implanted after meeting criteria of chronic intractable pain for greater than 3 months and failing conservative treatments. Patient has committed and been co mpliant to the treatment plan and all planned follow up care. Since implantation of the intrathecal pain pump, the patient has had decreased pain and been more functional. Oral medications have been reduced including intake of oral opioids. Patient continues to do well with intrathecal therapy with decrease in pain symptoms and increase in functional status. Stopping intrathecal medications can lead to life threatening withdrawal, seizures, cardiac arrest, severe pain, and possible . Pumps that are not refilled at regular intervals can be damages and cause and need for replacement. We continually titrate dose and concentration to optimize pain relief and function. We are limited in concentration for certain drugs to safely deliver medications through the pump and stay within the recommendations from the Polyanalgesic Consensus Committee Guidelines. Depending on dose and concentration these pumps may need to be refilled sooner than 3 months as we titrate.
[2024-02-19 15:17] VITALS: BP 114/76; PULSE 91; RESP 18; O2SAT 100; BMI 25.7
== END 2024-02-19 23:59 | disposition home or self-care (01) ==
PROVIDERS: Visit Provider Nurse Practitioner Family
DX: M51.16 Intervertebral disc disorders with radiculopathy, lumbar region (principal); R20.2 Paresthesia of skin; Z97.8 Presence of other specified devices; Z45.1 Encounter for adjustment and management of infusion pump
CPT/HCPCS: 62368; 99213; G0463

== ENCOUNTER 2024-03-01 13:32 | Outpatient (POV) | payer MEDICAID, SELFPAY ==
[2024-03-01 13:38] VITALS: BP 103/68; PULSE 71; RESP 18; O2SAT 99; BMI 25.7
--- NOTE | 2024-03-01 14:18 | EXP.PAIN.PRO ---
Procedure Date: 03/01/24 Time: 13:44 Anesthesiologist:: Elma Myrick APRN Complications:: None Pre-procedure Diagnosis:: Degenerative disc disease of lumbar spine with lumbar radiculopathy symptoms, paresthesia Post-procedure Diagnosis:: Same Indications for Procedure:: Patient is a pleasant 43-year-old female who presents today for intrathecal adjustment and reprogram. Today she rates her pain a 8 out of 10. She denies any new trauma or injury. She is currently managed with bupivacaine 5 mg/mL with a daily dose of 3.3331 mg/day. She denies any side effects from this medication. She does states that she feels like it could use additional adjustment. Her Dixon has been reviewed and is appropriate. Physical Exam: General: Alert and oriented x3, no acute distress, pleasant and cooperative Lungs: Respirations even and unlabored, symmetrical chest expansion Eyes: PERRL Musculoskeletal: Flexion and extension of lumbar [spine] somewhat guarded secondary to pain, [antalgic gait noted] Neurological: Speech clear, no gross sensory deficit Procedure Details:: Informed consent was obtained and the risk and benefits of the procedure were explained to the patient. Patient was taken to the procedure room where noninvasive monitoring was placed including noninvasive blood pressure cuff and pulse oximeter. Patient's pump was interrogated and was reprogrammed to bupivacaine 4.0048 mg/day. The patient tolerated the procedure well with no complications. Plan and Disposition:: Patient tolerated her intrathecal increase with no complications and was discharged neurologically intact. Patient will return to clinic in 2 weeks for reevaluation of symptoms and plan of care. Patient has been instructed to contact the clinic with any concerns before the next appointment. Dr. Flores has reviewed this note and agrees with this plan of care. This note was dictated using voice recognition software and make contain errors or omissions. -- It Is medically necessary for this patient to continue to have their intrathecal pump refilled at regular intervals. This patient had an intrathecal pain pump implanted after meeting criteria of chronic intractable pain for greater than 3 months and failing conservative treatments. Patient has committed and been compliant to the treatment plan and all planned follow up care. Since implantation of the intrathecal pain pump, the patient has had decreased pain and been more functional. Oral medications have been reduced including intake of oral opioids. Patient continues to do well with intrathecal therapy with decrease in pain symptoms and increase in functional status. Stopping intrathecal medications can lead to life threatening withdrawal, seizures, cardiac arrest, severe pain, and possible . Pumps that are not refilled at regular intervals can be damages and cause and need for replacement. We continually titrate dose and concentration to optimize pain relief and function. We are limited in concentration for certain drugs to safely deliver medications through the pump and stay within the recommendations from the Polyanalgesic Consensus Committee Guidelines. Depending on dose and concentration these pumps may need to be refilled sooner than 3 months as we titrate.
== END 2024-03-01 23:59 | disposition home or self-care (01) ==
PROVIDERS: PCP Pediatrics; Visit Provider Nurse Practitioner Family
DX: M51.16 Intervertebral disc disorders with radiculopathy, lumbar region (principal); R20.2 Paresthesia of skin; Z97.8 Presence of other specified devices; Z45.1 Encounter for adjustment and management of infusion pump
CPT/HCPCS: 62368; 99212; G0463

== ENCOUNTER 2024-03-02 09:17 | Day surgery (SDC) | payer MEDICAID, SELFPAY ==
[2024-03-02 09:43] VITALS: BP 111/68; PULSE 75; RESP 18; O2SAT 97
[2024-03-02 09:45] VITALS: BP 111/68; PULSE 75; RESP 18; O2SAT 97
[2024-03-02 09:47] VITALS: BP 111/66; PULSE 59; RESP 18; TEMP 36.4; O2SAT 96; BMI 25.7
[2024-03-02 09:56] VITALS: BP 100/68; PULSE 64; RESP 18; O2SAT 96
--- NOTE | 2024-03-02 09:59 | P.PCN_ITS ---
Procedure Date: 03/02/24 Time: 09:40 Anesthesiologist:: Pete Freire CRNA Complications:: None Pre-procedure Diagnosis:: Degenerative disc lumbar spine multilevels. Lumbar radiculopathy. Chronic paresthesia. Post-procedure Diagnosis:: Same. Indications for Procedure:: Patient is a pleasant 43-year-old female comes our clinic today for intrathecal pain pump interrogation and refill. She is currently being managed with bupivacaine 5 mg/mL at a rate of 4.0048 mg/day. Patient states she is doing better in regards to her paresthesia,s then prior to the intrathecal pain pump implant. However, she is still having some episodes. Procedure Details:: Details of the procedure explained to the patient. The patient taken procedure room placed in sitting position. The area of the pump is cleansed using chlorhexidine's cleansing solution. The pump was interrogated. The pump was accessed with ease using a 22-gauge inch and half needle. 2.5 mL solution was withdrawn discarded appropriate. The pump was then filled with 20 cc of solu tion containing bupivacaine 5 mg/mL. Patient had an increase in her pump rate yesterday. Plan and Disposition:: Patient was discharged without incident.
[2024-03-02 10:54] LABS: Hematocrit 34.1 % (37.0-47.0); Hemoglobin 10.1 g/dL (12.2-16.2); Mean Corpuscular HGB Conc 29.6 g/dL (31.8-35.4); Mean Corpuscular Hemoglobin 23.2 pg (27.0-31.2); Mean Corpuscular Volume 78.5 fl (81-99); Platelet Count 354 K/mm3 (142-424); Red Blood Count 4.35 M/mm3 (4.20-5.40); Red Cell Distribution Width 16.4 % (11.5-17.5); White Blood Count 13.8 K/mm3 (4.8-10.8)
[2024-03-02 11:52] LABS: INR 0.95 (0.9-1.1); Prothrombin Time 10.3 seconds (10.1-12.5)
[2024-03-02 11:59] LABS: Alanine Aminotransferase 29 U/L (12-78); Albumin/Globulin Ratio 1.3 (1.1-1.8); Alkaline Phosphatase 99 U/L (38-126); Anion Gap 14.5 mEq/L (5-15); Aspartate Amino Transferase 42 U/L (14-36); Bilirubin,Total 0.3 mg/dl (0.2-1.3); Blood Urea Nitrogen 14 mg/dl (7-17); Calcium 9.6 mg/dl (8.4-10.2); Carbon Dioxide 21 mmol/L (22.0-30.0); Chloride 108 mmol/L (98-107); Creatinine Clearance Estimated 114 mL/min (50-200); Estimated Glomerular Filt Rate 92 ml/min (>60); GFR (African American) 112 ML/MIN (>60); Globulin 3.2 g/dL (1.3-3.2); Glucose 89 mg/dl (74-100); Potassium 4.5 mmoL/L (3.5-5.1); Sodium 139 mmol/L (136-145); Total Protein,Serum 7.2 g/dl (6.3-8.2)
[2024-03-03 11:14] LABS: Hep A Ab, Total Negative (Negative); Hep B Surface Ab, Qual Non Reactive (.)
[2024-03-03 14:32] LABS: Actin (Smooth Muscle) Antibody 5 Units (0-19); Immunoglobulin A, Qn 251 mg/dL (87-352); Immunoglobulin G, Qn 1221 mg/dL (586-1602); Immunoglobulin M, Qn 83 mg/dL (26-217); Mitochondrial (M2) Antibody <20.0 Units (0.0-20.0)
[2024-03-06 08:58] LABS: Immunoglobulin E, Total 17 IU/mL (6-495)
[2024-03-08 15:04] LABS: Alpha-1-Antitrypsin 180 mg/dL (101-187)
[2024-03-10 10:11] LABS: Antinuclear Antibodies, IFA Positive
== END 2024-03-02 09:56 | disposition home or self-care (01) ==
PROVIDERS: Nurse Practitioner Acute Care; PCP Pediatrics; Visit Provider Nurse Anesthetist, Certified Registered
DX: M51.16 Intervertebral disc disorders with radiculopathy, lumbar region (principal); R20.2 Paresthesia of skin; Z97.8 Presence of other specified devices; Z45.1 Encounter for adjustment and management of infusion pump
CPT/HCPCS: 36415; 80053; 82103; 82104; 82784; 82785; 85014; 85018; 85048; 85049; 85610; 86038; 86255; 86256; 86706; 86708; 87522; 95991

== ENCOUNTER 2024-03-10 09:26 | Outpatient (POV) | payer MEDICAID, SELFPAY ==
[2024-03-10 09:48] VITALS: BP 150/78; PULSE 64; RESP 18; O2SAT 98; BMI 25.6
--- NOTE | 2024-03-10 10:03 | EXP.PAIN.PRO ---
Procedure Date: 03/10/24 Time: 09:31 Anesthesiologist:: Elma Myrick APRN Complications:: None Pre-procedure Diagnosis:: Degenerative disc disease of lumbar spine with lumbar radiculopathy symptoms, paresthesia Post-procedure Diagnosis:: Same Indications for Procedure:: Patient is a pleasant 43-year-old female who presents today for intrathecal adjustment and reprogram. Today she rates her pain a 6 out of 10. She denies any new trauma or injury. She does state that although her symptoms are fewer she does feel like that the intensity is getting stronger when she does have these electrical shock sensations. Patient states she has been having more trouble sleeping. Patient does state that she has been doing a lot more here in the last couple of weeks due to her dad being in hospice. Patient states that this may be why she has had an increase of the overall symptoms. Patient is currently managed with bupivacaine 5 mg/mL and a daily dose of 4.0048 mg/day. She denies any side effects from this medication. Her Dixon has been reviewed and is appropriate. Physical Exam: General: Alert and oriented x3, no acute distress, pleasant and cooperative Lungs: Respirations even and unlabored, symmetrical chest expansion Eyes: PERRL Musculoskeletal: Flexion and extension of lumbar [spine] somewhat guarded secondary to pain, [antalgic gait noted] Neurological: Speech clear, no gross sensory deficit Procedure Details:: Informed consent was obtained and the risk and benefits of the procedure were explained to the patient. Patient was taken to the procedure room where noninvasive monitoring was placed including noninvasive blood pressure cuff and pulse oximeter. Patient's pump was interrogated and was reprogrammed to bupivacaine 4.4069 mg/day. The patient tolerated the procedure well with no complications. Plan and Disposition:: I did discuss at length with the patient that whether or not she feels like the pump is actually aggravating her electrical shock sensations or whether or not it is just progression of her symptoms. Patient does feel like that it was already getting worse over the years and that its natural progression over the pump medication. I have discussed with the patient that in future if it continues to seem like that she is continuing to get increased severity as we are increasing the pump that we may look at adding a different medication to the bupivacaine such as Dilaudid. We will follow-up with this at her pump refill that is scheduled next Friday. Patient is agreeable to this plan of care. Patient was discharged neurologically intact. We will see the patient back in the clinic at the next intrathecal refill. Patient has been instructed to contact the clinic with any concerns before the next appointment. Dr. Flores has reviewed this note and agrees with this plan of care. This note was dictated using voice recognition software and make contain errors or omissions. -- It Is medically necessary for this patient to continue to have their intrathecal pump refilled at regular intervals. This patient had an intrathecal pain pump implanted after meeting criteria of chronic intractable pain for greater than 3 months and failing conservative treatments. Patient has committed and been compliant to the treatment plan and all planned follow up care. Since implantation of the intrathecal pain pump, the patient has had decreased pain and been more functional. Oral medications have been reduced including intake of oral opioids. Patient continues to do well with intrathecal therapy with decrease in pain symptoms and increase in functional status. Stopping intrathecal medications can lead to life threatening withdrawal, seizures, cardiac arrest, severe pain, and possible . Pumps that are not refilled at regular intervals can be damages and cause and need for replacement. We continually titrate dose and concentration to optimize pain relief and function. We are limited in concentration for certain drugs to safely deliver medications through the pump and stay within the recommendations from the Polyanalgesic Consensus Committee Guidelines. Depending on dose and concentration these pumps may need to be refilled sooner than 3 months as we titrate.
== END 2024-03-10 23:59 | disposition home or self-care (01) ==
PROVIDERS: PCP Pediatrics; Visit Provider Nurse Practitioner Family
DX: M51.16 Intervertebral disc disorders with radiculopathy, lumbar region (principal); R20.2 Paresthesia of skin; Z97.8 Presence of other specified devices; Z45.1 Encounter for adjustment and management of infusion pump
CPT/HCPCS: 62368; 99213; G0463

== ENCOUNTER 2024-03-16 12:05 | Day surgery (SDC) | payer MEDICAID, SELFPAY ==
[2024-03-16 12:13] VITALS: BP 124/69; PULSE 75; RESP 18; O2SAT 97
[2024-03-16 12:19] VITALS: BP 111/67; PULSE 73; RESP 18; TEMP 36.4; O2SAT 100; BMI 25.7
--- NOTE | 2024-03-16 12:35 | EXP.PAIN.PRO ---
Procedure Date: 03/16/24 Time: 12:40 Anesthesiologist:: Pete Freire CRNA Complications:: None Pre-procedure Diagnosis:: Degenerative disc lumbar spine multilevels. Lumbar radiculopathy. Lumbar paresthesia. Post-procedure Diagnosis:: Same. Indications for Procedure:: Patient is a pleasant 43-year-old female comes our clinic today for intrathecal pain pump interrogation refill. She is currently being managed with bupivacaine 5 mg/mL at a rate of 4.4069 mg/day. Patient was initially implanted with intrathecal pain pump for delivery of bupivacaine to help with clonic jolts throughout her body. No pathology has been discovered in regards to why the patient is having these electric jolts throughout her body intermittently. Patient currently reports no improvement since intrathecal pain pump was implanted. She is continue to have these electrical jolts. We discussed further treatment options. I will send a prescription in for her baclofen p.o. 10 mg 3 times daily. Also, at her next refill date we will add hydromorphone 1 mg/mL. Bupivacaine will remain her primary drug. Procedure Details:: Details of the procedure explained to the patient. The patient taken procedure and placed in the prone position on fluoroscopy table. They over the pump is cleansed using chlorhexidine's cleansing solution. The pump was interrogated. The pump was noted under fluoroscopy to be have flipped. The pump was easily flipped back into position. Accessed with ease using a 22-gauge inch and half needle. 7 mL of solution was drawn discarded appropriate. The pump was then filled with 20 cc of solution containing bupivacaine 5 mg/mL. The rate will remain the same at 4.4069 mg/day. Patient tolerated procedure without difficulty. No complications. Plan and Disposition:: Patient was discharged without incident.
[2024-03-16 12:38] VITALS: BP 112/73; PULSE 59; RESP 18; O2SAT 100
== END 2024-03-16 12:39 | disposition home or self-care (01) ==
PROVIDERS: PCP Internal Medicine Cardiovascular Disease; Visit Provider Nurse Anesthetist, Certified Registered
DX: M51.16 Intervertebral disc disorders with radiculopathy, lumbar region (principal); R20.2 Paresthesia of skin; Z97.8 Presence of other specified devices; Z45.1 Encounter for adjustment and management of infusion pump
CPT/HCPCS: 95991

== ENCOUNTER 2024-04-13 11:27 | Day surgery (SDC) | payer MEDICAID, SELFPAY ==
[2024-04-13 11:42] VITALS: BP 156/67; PULSE 71; RESP 18; TEMP 36.7; O2SAT 100; BMI 25.7
--- NOTE | 2024-04-13 12:02 | EXP.PAIN.PRO ---
Procedure Date: 04/13/24 Time: 11:50 Anesthesiologist:: Pete Freire CRNA Complications:: None Pre-procedure Diagnosis:: Degenerative disc lumbar spine multilevels. Lumbar radiculopathy. Lumbar paresthesia. Post-procedure Diagnosis:: Same. Indications for Procedure:: Patient is a pleasant 44-year-old female comes our clinic today for intrathecal pain pump interrogation and refill. Patient currently being managed with bupivacaine 10 mg/mL at a rate of 4.407 mg/day. Today we are adding hydromorphone 1 mg/mL along with the bupivacaine. Patient is awake alert [place] x 3. In no acute distress. Flexion-extension lumbar spine normal. Deep tendon reflexes upper lower extremities normal. There is no gross sensory deficit. Gait is normal. Procedure Details:: Details of the procedure explained the patient. The patient taken procedure room placed in sitting position. The area over the pump is cleansed using chlorhexidine's cleansing solution. The pump was interrogated. The pump was accessed with ease using a 22-gauge inch and half needle. 7.2 mL of solution was withdrawn discarded appropriate. The pump was then filled with 20 cc of solution containing bupivacaine 10 mg/mL and hydromorphone 1 mg/mL. Bupivacaine rate will continue at 4.407 mg/day. The hydromorphone rate is 0.4407 mg/day. Patient tolerated procedure without difficulty. There are no complications. Plan and Disposition:: Patient was discharged without incident.
[2024-04-13 12:18] VITALS: BP 100/62; PULSE 58; RESP 18; O2SAT 100
[2024-04-13 12:23] VITALS: BP 98/62; PULSE 60; RESP 18; O2SAT 99
[2024-04-13 12:25] VITALS: BP 98/62; PULSE 60; RESP 18; O2SAT 99
== END 2024-04-13 12:19 | disposition home or self-care (01) ==
PROVIDERS: PCP Pediatrics; Visit Provider Nurse Anesthetist, Certified Registered
DX: G89.29 Other chronic pain (principal); M51.36 Other intervertebral disc degeneration, lumbar region; M54.16 Radiculopathy, lumbar region
CPT/HCPCS: 95991

== ENCOUNTER 2024-05-18 14:19 | Day surgery (SDC) | payer MEDICAID, SELFPAY ==
[2024-05-18 14:39] VITALS: BP 91/57; PULSE 64; RESP 16; TEMP 36.7; O2SAT 100; BMI 27.3
[2024-05-18 14:47] VITALS: BP 98/59; PULSE 64; RESP 18; O2SAT 98
[2024-05-18 14:53] VITALS: BP 98/59; PULSE 64; RESP 18; O2SAT 98
--- NOTE | 2024-05-18 14:59 | EXP.PAIN.PRO ---
Procedure Date: 05/18/24 Time: 14:50 Anesthesiologist:: Pete Freire CRNA Complications:: None Pre-procedure Diagnosis:: Degenerative disc lumbar spine multilevels. Lumbar radiculopathy. Lumbar paresthesia. Post-procedure Diagnosis:: Same Indications for Procedure:: Patient is a pleasant 44-year-old female comes our clinic today for intrathecal pain pump interrogation and refill. Patient is currently being managed with hydromorphone 1 mg/mL at a rate of 0.4407 mg/day. And bupivacaine 10 mg/mL at a rate of 4.407 mg/day. Patient is doing well with her current settings. She is not reporting any side effects or complications. She is not requesting any changes. Patient requesting refill of her baclofen. Will send this in for her today. Procedure Details:: Details of the procedure explained to the patient. The patient taken procedure room placed in the sitting position. The area of the pump was cleaned using chlorhexidine as a cleansing solution. Pump was interrogated. The pump was accessed with ease using a 22-gauge inch and half needle. 4 mL of solution was withdrawn discarded appropriate. The pump was then filled with 20 cc of solution containing hydromorphone 1 mg/mL and bupivacaine 10 mg/mL. Pump rates will remain the same bupivacaine 4.407 mg/day. And hydromorphone 0.4407 mg/day. Patient tolerated procedure without difficulty. No complications. Plan and Disposition:: Patient was discharged without incident.
[2024-05-18 15:02] VITALS: BP 91/56; PULSE 60; RESP 16; O2SAT 100
== END 2024-05-18 15:02 | disposition home or self-care (01) ==
PROVIDERS: PCP Pediatrics; Visit Provider Nurse Anesthetist, Certified Registered
DX: R20.2 Paresthesia of skin; M51.36 Other intervertebral disc degeneration, lumbar region
CPT/HCPCS: 95991

== ENCOUNTER 2024-06-15 08:19 | Day surgery (SDC) | payer MEDICAID, SELFPAY ==
[2024-06-15 08:44] VITALS: BP 106/68; PULSE 63; RESP 16; TEMP 36.4; O2SAT 100; BMI 25.7
[2024-06-15 08:57] VITALS: BP 129/71; PULSE 55; RESP 18; O2SAT 99
--- NOTE | 2024-06-15 09:03 | P.PCN_ITS ---
Procedure Date: 06/15/24 Time: 08:50 Anesthesiologist:: Pete Freire CRNA Complications:: None Pre-procedure Diagnosis:: Degenerative disc lumbar spine multilevels. Lumbar radiculopathy. Lumbar paresthesia. Left sacroiliitis. Post-procedure Diagnosis:: Same. Indications for Procedure:: Patient is a pleasant 44-year-old female comes our clinic today for intrathecal pain pump interrogation and refill. She is currently being managed with hydromorphone 1 mg/mL at a rate of 0.4407 mg/day. Also, bupivacaine 10 mg/mL at a rate of 4.407 mg/day. She is doing very well at the current settings. She is not reporting side effects or complications. Her main complaint is low lumbar back pain off the midline to the left. Also, left posterior hip pain. Upon examination she has extreme point tenderness over the left sacroiliac joint. No pain on the right. She reports difficulty trans itioning from sitting to standing. Difficulty lying on her left side at night. She has positive Damien's test on the left. Positive Gaenslen's test on the left. Positive left sacroiliac joint compression test. We discussed left sacroiliac joint injection to cortisone in the near future. She wishes to proceed. Also, patient requesting different oral muscle relaxer secondary to drowsiness. I recommend Robaxin 500 mg 1 p.o. 3 times daily. I requested she discontinue the baclofen. Will send in the prescription order for Robaxin. Procedure Details:: Details of the procedure explained to the patient. The patient taken procedure room placed in the sitting position. The area of the pump was cleansed using chlorhexidine as a cleansing solution. The pump was interrogated. The pump was accessed with ease using 22-gauge inch and half needle. 7 mL of solution was withdrawn discarded appropriate. The pump was then filled with 20 cc of s olution containing hydromorphone 1 mg/mL and bupivacaine 10 mg/mL. No change was made on pump rate. Patient tolerated procedure without difficulty. There are no complications. Plan and Disposition:: Patient was discharged without incident.
[2024-06-15 09:10] VITALS: BP 108/72; PULSE 66; RESP 16; O2SAT 100
== END 2024-06-15 09:10 | disposition home or self-care (01) ==
PROVIDERS: PCP Internal Medicine Cardiovascular Disease; Visit Provider Nurse Anesthetist, Certified Registered
DX: M51.16 Intervertebral disc disorders with radiculopathy, lumbar region (principal); R20.2 Paresthesia of skin; M46.1 Sacroiliitis, not elsewhere classified
CPT/HCPCS: 95991

== ENCOUNTER 2024-07-13 09:14 | Day surgery (SDC) | payer MEDICAID, SELFPAY ==
[2024-07-13 09:37] VITALS: BP 104/61; PULSE 56; RESP 16; TEMP 36.9; O2SAT 99; BMI 25.7
[2024-07-13 09:58] VITALS: BP 112/69; PULSE 51; RESP 18; O2SAT 97
[2024-07-13 10:00] VITALS: BP 112/69; PULSE 51; RESP 18; O2SAT 96
--- NOTE | 2024-07-13 10:13 | EXP.PAIN.PRO ---
Procedure Date: 07/13/24 Time: 09:50 Anesthesiologist:: Pete Freire CRNA Complications:: None Pre-procedure Diagnosis:: Degenerative disc lumbar spine multilevels. Lumbar radiculopathy. Lumbar paresthesia. Left sacroiliitis. Post-procedure Diagnosis:: Same. Indications for Procedure:: Patient is a pleasant 44-year-old female who comes our clinic today for intrathecal pain pump interrogation and refill. She is currently being managed with hydromorphone 1 mg/mL at a rate of 0.4407 mg/day. Also, bupivacaine 10 mg/mL at a rate of 4.407 mg/day. Patient is doing very well with her current settings. She is requesting slight increase of the pump to help with lumbar paresthesias. She reports the pump has made significant change in the number of lumbar paresthesias she experiences on a daily basis. I will increase her by 5% today. Her new rate will be bupivacaine 4.843 mg/day. Hydromorphone 0.4843 mg today. Patient is awake alert [place] x 3. In no acute distress. Flexion-extension lumbar spine somewhat guarded secondary pain. Deep tendon reflexes upper and lower extremities normal. Motor strength upper lower extremities normal. There is no gross sensory deficit. Gait is normal. Procedure Details:: Details of procedure explained the patient. The patient taken procedure and placed in sitting position. The area of the pump was cleansed using chlorhexidine as a cleansing solution. The pump was interrogated. The pump was accessed with ease using a 22-gauge inch and half needle. 7 mL of solution was withdrawn discarded appropriately. The pump was then filled with 20 cc of solution containing bupivacaine 10 mg/mL and hydromorphone 1 mg/mL. The pump rate will increase by 5%. The new rate will be bupivacaine 4.843 mg/day. Hydromorphone 0.4843 mg/day. Patient tolerated procedure without difficulty. There are no complications. Plan and Disposition:: Patient was discharged without incident.
[2024-07-13 10:16] VITALS: BP 104/50; PULSE 79; RESP 16; O2SAT 98
== END 2024-07-13 10:16 | disposition home or self-care (01) ==
PROVIDERS: PCP Pediatrics; Visit Provider Nurse Anesthetist, Certified Registered
DX: M51.16 Intervertebral disc disorders with radiculopathy, lumbar region (principal); R20.2 Paresthesia of skin; M46.1 Sacroiliitis, not elsewhere classified
CPT/HCPCS: 62370

== ENCOUNTER 2024-07-23 11:38 | Outpatient (POV) | payer MEDICAID, SELFPAY ==
[2024-07-23 11:58] VITALS: BP 126/68; PULSE 68; RESP 18; TEMP 36.4; O2SAT 100; BMI 25.7
--- NOTE | 2024-07-23 12:34 | A.OFFVIS_ITS ---
[facility] Disclaimer: The information contained in this section may have been updated after the patient was seen, as this information can be updated by other users. Medical History History of palpitations BRCA positive Marijuana abuse Seizures Migraine H/O chest pain Anemia Surgical History History of hernia surgery History of surgery on wrist Status post transverse rectus abdominis muscle (TRAM) flap breast reconstruction H/O total hysterectomy Hx of appendectomy Hx laparoscopic cholecystectomy Hx of bariatric surgery H/O bilateral mastectomy Family History Other Family history of cancer Family history of diabetes mellitus type II Family history of hypertension Social History Smoking Status: Former smoker tobacco type: cigarettes packs per day: 2 second hand exposure: Yes alcohol intake: current alcohol intake frequency: holidays/special occasions only substance use type: marijuana current occupational status: employed and other Travel in the last 8 weeks: None household members: spouse housing: house current occupation: [employer] current occupational exposures/hazards: No caffeine: Yes PM Subjective & Objective Subjective Subjective:: Patient is a pleasant 44-year-old female who presents today for worsening pain. Today she rates her pain a 7 out of 10. Patient states her pain is only in her lower buttocks/tailbone area and does radiate down into her legs. She describes this as a sharp burning sensation that does interfere with her ability to do activities of daily living such as cooking and cleaning patient is interested in injection therapy for this issue. She states it has been going on for at least 3 months unrelated to any injury or trauma. Patient states that when the pain gets more severe she does have to get up and move around. She states she does notice it more when she is sitting or laying down. Patient is currently managed with Dilaudid 1 mg/mL and bupivacaine 10 mg/mL with a daily dose of 0.4407 mg/day of the Dilaudid. She denies any side effects from this medication. Her Dixon has been reviewed and is appropriate. Review of Systems: General: No recent weight changes, no fever, no sleep disturbances Respiratory: No cough, no shortness of air, no recurring pulmonary infections Cardiovascular/peripheral vascular: No chest pain, no palpitations, no edema, no shortness of breath Gastrointestinal: No new onset incontinence, normal bowel movements reported Genitourinary: No new onset incontinence Musculoskeletal: Buttocks/tailbone pain, leg pain Psychiatric: [Normal mood/affect] Neurological: [Denies weakness in extremities], [denies balance issues] Pain at rest (0-10 scale): 7 Objective Objective:: Physical Exam: General: Alert and oriented x3, no acute distress, pleasant and cooperative Lungs: Respirations even and unlabored, symmetrical chest expansion Eyes: PERRL Musculoskeletal: Flexion and extension of sacrum [spine] somewhat guarded secondary to pain, [antalgic gait noted] point tenderness along the lower sacrum Neurological: Speech clear, no gross sensory deficit Has patient had previous pain injection?: No Conservative treatment options previously tried: Home exercise plan Length of treatment: Longer than 12 weeks Meds Home Medications and Allergies Home Medications ?Medication ?Instructions ?Recorded ?Confirmed ?Type multivitamin,to-jyyo-nsfxevlo 1 tab PO QDAY Supplement 10/09/17 07/13/24 History (Complete Multivitamin tablet) acetaminophen 500 mg tablet 500 mg PO Q6H Pain 04/23/23 07/13/24 History lidocaine 5 % topical patch 1 patch topical Q12H Pain 04/23/23 07/13/24 History famotidine 20 mg tablet 20 mg PO DAILY 12/05/23 07/13/24 History hydrocortisone 2.5 % topical cream 1 applic topical BID 12/05/23 07/13/24 History with perineal applicator magnesium oxide 40 mg PO DAILY 12/05/23 07/13/24 History methocarbamol 750 mg tablet See Rx Instructions .Route 12/31/23 07/13/24 Rx .COMPLEX #90 tabs amitriptyline 10 mg tablet 10 mg PO DAILY #30 tabs 01/21/24 07/13/24 Rx bupivacaine (PF) 100 mg/20 mL (5 100 mg epidural CONT Pain 03/10/24 07/13/24 History mg/mL) 0.5 % epidural syringe New Prescriptions to Start Prescriptions: Allergies Allergy/AdvReac Type Severity Reaction Status Date / Time codeine [CODEINE] Allergy Unknown I-ITCHING Verified 06/15/24 08:45 Assessment and Plan *Assessment and plan (1) Coccygeal pain, chronic: Status: Acute Category: Medical Code(s): M53.3 - Sacrococcygeal disorders, not elsewhere classified; G89.29 - Other chronic pain (2) Lumbar radiculopathy: Status: Acute Category: Medical Code(s): M54.16 - Radiculopathy, lumbar region Plan Patient is experiencing worsening pain in and around her tailbone/sacrum with limited range of motion. Patient did have point tenderness with palpation around her lower sacrum during today's exam. I did discuss with the patient due to her sharp burning sensations that she may benefit from a caudal epidural. Risk and benefits were discussed with the patient and she would like to proceed forward with this plan of care. Patient has tried and failed conservative therapy including continued at home stretching exercise for longer than 12 weeks. Patient has had this pain longer than 3 months. Patient will be scheduled for a caudal epidural under fluoroscopy. Patient is not on any blood thinners. Patient has been instructed to contact the clinic with any concerns before the next appointment. Dr. Flores has reviewed this note and agrees with this plan of care. This note was dictated using voice recognition software and make contain errors or omissions. -- It Is medically necessary for this patient to continue to have their intrathecal pump refilled at regular intervals. This patient had an intrathecal pain pump implanted after meeting criteria of chronic intractable pain for greater than 3 months and failing conservative treatments. Patient has committed and been compliant to the treatment plan and all planned follow up care. Since implantation of the intrathecal pain pump, the patient has had decreased pain and been more functional. Oral medications have been reduced including intake of oral opioids. Patient continues to do well with intrathecal therapy with decrease in pain symptoms and increase in functional status. Stopping intrathecal medications can lead to life threatening withdrawal, seizures, cardiac arrest, severe pain, and possible . Pumps that are not refilled at regular intervals can be damages and cause and need for replacement. We continually titrate dose and concentration to optimize pain relief and function. We are limited in concentration for certain drugs to safely deliver medications through the pump and stay within the recommendations from the Polyanalgesic Consensus Committee Guidelines. Depending on dose and concentration these pumps may need to be refilled sooner than 3 months as we titrate.
== END 2024-07-23 23:59 | disposition home or self-care (01) ==
LOC: SC.PAIN 11:39
PROVIDERS: PCP Family Medicine; Visit Provider Nurse Practitioner Family
DX: M53.3 Sacrococcygeal disorders, not elsewhere classified (principal); G89.29 Other chronic pain; M54.16 Radiculopathy, lumbar region; Z87.891 Personal history of nicotine dependence; Z73.89 Other problems related to life management difficulty
CPT/HCPCS: 99212; G0463

== ENCOUNTER 2024-08-10 09:40 | Day surgery (SDC) | payer MEDICAID, SELFPAY ==
[2024-08-10 10:00] VITALS: BP 116/65; PULSE 66; RESP 16; TEMP 36.6; O2SAT 99; BMI 25.7
[2024-08-10] MEDS: methylPREDNISolone ACETATE 80MG/ML VIAL 80 MG (10:11)
[2024-08-10] MEDS: LIDOCAINE 1% 5ML PF VIAL 5 ML (10:11)
[2024-08-10 10:12] VITALS: BP 107/60; PULSE 59; RESP 18; O2SAT 97
[2024-08-10 10:14] VITALS: BP 107/60; PULSE 59; RESP 18; O2SAT 97
--- NOTE | 2024-08-10 10:19 | EXP.PAIN.PRO ---
Procedure Date: 08/10/24 Time: 10:10 Anesthesiologist:: Pete Freire CRNA Complications:: None Pre-procedure Diagnosis:: Degenerative disc lumbar spine multilevels. Lumbar radiculopathy. Lumbar postlaminectomy syndrome. Lumbar spondylosis. Multilevel lumbar facet arthropathy. Coccyx fracture x 2 Post-procedure Diagnosis:: Same. Indications for Procedure:: Patient is a very pleasant 44-year-old female who comes our clinic today for a caudal epidural steroid injection. Patient describes low lumbar back pain as constant, dull, aching. Patient also reports bilateral hip and leg radicular symptoms at times. She is currently being managed with intrathecal pain pump hydromorphone 1 mg/mL and bupivacaine 10 mg/mL with a daily rate of 0.4407 mg/day of Dilaudid. She is doing very well with her current settings. However, having some breakthrough pain in the low back low lumbar region as well as sacral region. As mentioned earlier she is status post 2 separate coccyx fracture incidence. This is caused her a great deal of pain chronically over the years. She rates her pain today 6/10. Procedure Details:: Informed consent was obtained and the risks and benefits of the procedure were explained to the patient. The patient was taken to the procedure room and noninvasive monitors placed, including noninvasive blood pressure cuff and pulse oximeter. The back was viewed using C-arm Fluoroscopy and prepped using Chloraprep as a cleansing solution and the caudal epidural space was visualized using fluoroscopy in a lateral position. Skin and subcutaneous tissues were anesthetized using lidocaine 1.5% and a 25-gauge needle. After this, an 22-gauge spinal needle was placed into the caudal epidural space and advanced using fluoroscopic guidance. After confirmation of needle placement in the caudal space, with dye, a solution containing normal saline, 3 mL and Depo-Medrol 80 mg and 1 mL of 1% lidocaine were incrementally injected into the caudal epidural space. The patient tolerated the procedure well with no complications. Plan and Disposition:: Patient was discharged without incident.
[2024-08-10 10:21] VITALS: BP 111/70; PULSE 59; RESP 16; O2SAT 100
[2024-08-10] MEDS: IOPAMIDOL-200 (41%);10ML VIAL 10 ML IV (10:26)
== END 2024-08-10 10:21 | disposition home or self-care (01) ==
PROVIDERS: PCP Family Medicine; Visit Provider Nurse Anesthetist, Certified Registered
DX: M51.16 Intervertebral disc disorders with radiculopathy, lumbar region (principal); M96.1 Postlaminectomy syndrome, not elsewhere classified; M47.26 Other spondylosis with radiculopathy, lumbar region; S32.2XXS Fracture of coccyx, sequela
CPT/HCPCS: 62323; J1010; Q9966

== ENCOUNTER 2024-08-17 11:35 | Day surgery (SDC) | payer MEDICAID, SELFPAY ==
[2024-08-17 11:47] VITALS: BP 123/63; PULSE 64; RESP 16; TEMP 36.5; O2SAT 98; BMI 25.7
[2024-08-17 12:05] VITALS: BP 109/71; PULSE 56; RESP 18; O2SAT 98
[2024-08-17 12:06] VITALS: BP 109/71; PULSE 61; RESP 18; O2SAT 97
[2024-08-17 12:15] VITALS: BP 99/64; PULSE 62; RESP 16; O2SAT 98
--- NOTE | 2024-08-17 12:29 | EXP.PAIN.PRO ---
Procedure Date: 08/17/24 Time: 12:00 Anesthesiologist:: Pete Freire CRNA Complications:: None Pre-procedure Diagnosis:: Degenerative disc lumbar spine multilevels. Lumbar radiculopathy. Lumbar postlaminectomy syndrome. Lumbar spondylosis. Multilevel lumbar facet arthropathy. Coccyx fracture x 2. Post-procedure Diagnosis:: Same. Indications for Procedure:: Patient is a pleasant 44-year-old female who comes our clinic today for intrathecal pain pump interrogation and refill. Patient currently being managed with bupivacaine 10 mg/mL and hydromorphone 1 mg/mL. Bupivacaine at 4.843 mg/day. Hydromorphone at 0.4843 mg/day. She is doing well with her current settings. She is not reporting any side effects or complications. She is not requesting any changes. Patient is awake alert [place] x 3. In no acute distress. Flexion tension lumbar spine somewhat guarded secondary to pain. Deep tendon reflexes upper and lower extremities normal. Motor strength upper and lower extremities normal. There is no gross sensory deficit. Gait is normal. Procedure Details:: Details of the procedure explained to the patient. The patient taken procedure room placed in the sitting position. They over the pumps cleansed using chlorhexidine as a cleansing solution. The pump was interrogated. The pump was accessed with ease using a 22-gauge inch and half needle. 3 mL of solution was withdrawn discarded appropriately. The pump was then filled with 20 cc of solution containing bupivacaine 10 mg/mL and hydromorphone 1 mg/mL. Patient tolerated procedure without difficulty. There are no complications. Plan and Disposition:: Patient was discharged without incident.
== END 2024-08-17 12:15 | disposition home or self-care (01) ==
LOC: SC.PAINP 11:35
PROVIDERS: PCP Family Medicine; Visit Provider Nurse Anesthetist, Certified Registered
DX: M51.16 Intervertebral disc disorders with radiculopathy, lumbar region (principal); M96.1 Postlaminectomy syndrome, not elsewhere classified; M47.26 Other spondylosis with radiculopathy, lumbar region; S32.2XXA Fracture of coccyx, initial encounter for closed fracture
CPT/HCPCS: 95991

== ENCOUNTER 2024-09-17 09:52 | Day surgery (SDC) | payer MEDICAID, SELFPAY ==
[2024-09-17 10:23] VITALS: BP 108/61; PULSE 86; RESP 16; TEMP 36.4; O2SAT 99; BMI 25.7
--- NOTE | 2024-09-17 10:37 | EXP.PAIN.PRO ---
Procedure Date: 09/17/24 Time: 11:23 Anesthesiologist:: Elma Myrikc APRN Complications:: None Pre-procedure Diagnosis:: Degenerative disc disease of lumbar spine with lumbar radiculopathy symptoms, paresthesia Post-procedure Diagnosis:: Same Indications for Procedure:: Patient is a pleasant 44-year-old female who presents today for intrathecal refill and reprogram. Today she rates her pain a 4 out of 10. She denies any new trauma or injury. She does state that she would like to have a slight increase if possible. Patient is currently managed with Dilaudid 1 mg/mL and bupivacaine 10 mg/mL with a daily dose of 4.843 mg/day. She denies any side effects.Her Dixon has been reviewed and is appropriate. Physical Exam: General: Alert and oriented x3, no acute distress, pleasant and cooperative Lungs: Respirations even and unlabored, symmetrical chest expansion Eyes: PERRL Musculoskeletal: Flexion and extension of lumbar [spine] somewhat guarded secondary to pain, [antalgic gait noted] Neurological: Speech clear, no gross sensory deficit Procedure Details:: Informed consent was obtained and the risk and benefits of the procedure were explained to the patient. The patient had noninvasive monitoring placed including noninvasive blood pressure cuff and pulse oximeter. Patient's pump was interrogated. The area over the pump was cleansed with chlorhexidine as a cleansing solution. In sterile fashion the pump was accessed with a 22-gauge needle. Approximately 5.3 mls of the pump solution was removed and discarded appropriately. The pump was then refilled with 20 mL's of bupivacaine 10 mg/mL and Dilaudid 1 mg/mL. The needle was withdrawn and a bandage was placed over the puncture site. The infusion rate was reprogrammed and increased to 5.088 mg/day. The patient tolerated well with no complication. Plan and Disposition:: Patient tolerated her intrathecal refill and reprogram with no complications and was discharged neurologically intact. Patient will return to clinic for her next intrathecal refill. We will see the patient back in the clinic at the next intrathecal refill. Patient has been instructed to contact the clinic with any concerns before the next appointment. Dr. Flores has reviewed this note and agrees with this plan of care. This note was dictated using voice recognition software and make contain errors or omissions. -- It Is medically necessary for this patient to continue to have their intrathecal pump refilled at regular intervals. This patient had an intrathecal pain pump implanted after meeting criteria of chronic intractable pain for greater than 3 months and failing conservative treatments. Patient has committed and been compliant to the treatment plan and all planned follow up care. Since implantation of the intrathecal pain pump, the patient has had decreased pain and been more functional. Oral medications have been reduced including intake of oral opioids. Patient continues to do well with intrathecal therapy with decrease in pain symptoms and increase in functional status. Stopping intrathecal medications can lead to life threatening withdrawal, seizures, cardiac arrest, severe pain, and possible . Pumps that are not refilled at regular intervals can be damages and cause and need for replacement. We continually titrate dose and concentration to optimize pain relief and function. We are limited in concentration for certain drugs to safely deliver medications through the pump and stay within the recommendations from the Polyanalgesic Consensus Committee Guidelines. Depending on dose and concentration these pumps may need to be refilled sooner than 3 months as we titrate. A UDS is needed to verify patient's compliance with our office pain contract. This is ordered based off specific treatments related to chronic pain with the potential to abuse certain medications.
[2024-09-17 11:18] VITALS: BP 114/81; PULSE 72; RESP 16; O2SAT 98
[2024-09-17 11:21] VITALS: BP 114/81; PULSE 72; RESP 16; O2SAT 98
[2024-09-17 11:31] VITALS: BP 104/68; PULSE 87; RESP 16; O2SAT 100
== END 2024-09-17 11:31 | disposition home or self-care (01) ==
PROVIDERS: PCP Family Medicine; Visit Provider Nurse Practitioner Family
DX: M51.16 Intervertebral disc disorders with radiculopathy, lumbar region (principal); R20.2 Paresthesia of skin
CPT/HCPCS: 62370

== ENCOUNTER 2024-10-15 10:50 | Day surgery (SDC) | payer MEDICAID, SELFPAY ==
[2024-10-15 11:16] VITALS: BP 108/72; PULSE 81; RESP 16; TEMP 36.8; O2SAT 98; BMI 25.7
--- NOTE | 2024-10-15 11:24 | P.PCN_ITS ---
Procedure Date: 10/15/24 Time: 11:30 Anesthesiologist:: Elma Myrick APRN Complications:: None Pre-procedure Diagnosis:: Degenerative disc disease of lumbar spine with lumbar radiculopathy symptoms, paresthesia Post-procedure Diagnosis:: Same Indications for Procedure:: Patient is a pleasant 44-year-old female who presents today for intrathecal refill and reprogram. Today she rates her pain a 1 out of 10. She denies any new trauma or injury. She does state from her last visit that the increased dosage had seem to significantly help. She states the only time she really notices increased pain is around 1 or 2 AM and it does wake her up in the middle of the night. She is asking if we can just make a small adjustment today. She is currently managed with Dilaudid 1 mg/mL with a daily dose of 5.088 mg/day and bupivacaine 10 mg/mL with a daily dosage of 5.088 mg/day. She denies any side effects to this medication. Her Dixon has been reviewed and is appropriate. Physical Exam: General: Alert and oriented x3, no acute distress, pleasant and cooperative Lungs: Respirations even and unlabored, symmetrical chest expansion Eyes: PERRL Musculoskeletal: Flexion and extension of lumbar [spine] somewhat guarded secondary to pain, [antalgic gait noted] Neurological: Speech clear, no gross sensory deficit Procedure Details:: Informed consent was obtained and the risk and benefits of the procedure were explained to the patient. The patient had noninvasive monitoring placed including noninvasive blood pressure cuff and pulse oximeter. Patient's pump was interrogated. The area over the pump was cleansed with chlorhexidine as a cleansing solution. In sterile fashion the pump was accessed with a 22-gauge needle. Approximately 5.1 mls of the pump solution was removed and discarded appropriately. The pump was then refilled with 20 mL's of Dilaudid 1 mg/mL and bupivacaine 10 mg/mL. The needle was withdrawn and a bandage was placed over the puncture site. The infusion rate was reprogrammed and increased 5% to Dilaudid 0.5346 mg/day. The patient tolerated well with no complication. Plan and Disposition:: Patient tolerated her intrathecal refill and reprogram with no complications and was discharged neurologically intact. Patient will return to clinic on or before her next intrathecal pump refill date. We will see the patient back in the clinic at the next intrathecal refill. Patient has been instructed to contact the clinic with any concerns before the next appointment. Dr. Flores has reviewed this note and agrees with this plan of care. This note was dictated using voice recognition software and make contain errors or omissions. -- It Is medically necessary for this patient to continue to have their intrathecal pump refilled at regular intervals. This patient had an intrathecal pain pump implanted after meeting criteria of chronic intractable pain for greater than 3 months and failing conservative treatments. Patient has committed and been co mpliant to the treatment plan and all planned follow up care. Since implantation of the intrathecal pain pump, the patient has had decreased pain and been more functional. Oral medications have been reduced including intake of oral opioids. Patient continues to do well with intrathecal therapy with decrease in pain symptoms and increase in functional status. Stopping intrathecal medications can lead to life threatening withdrawal, seizures, cardiac arrest, severe pain, and possible . Pumps that are not refilled at regular intervals can be damages and cause and need for replacement. We continually titrate dose and concentration to optimize pain relief and function. We are limited in concentration for certain drugs to safely deliver medications through the pump and stay within the recommendations from the [employer] Guidelines. Depending on dose and concentration these pumps may need to be refilled sooner than 3 months as we titrate. A UDS is needed to verify patient's compliance with our office pain contract. This is ordered based off specific treatments related to chronic pain with the potential to abuse certain medications.
[2024-10-15 11:30] VITALS: BP 104/64; PULSE 61; RESP 18; O2SAT 100
[2024-10-15 11:41] VITALS: BP 96/60; PULSE 61; RESP 16; O2SAT 98
== END 2024-10-15 11:41 | disposition home or self-care (01) ==
PROVIDERS: PCP Pediatrics; Visit Provider Nurse Practitioner Family
DX: M51.16 Intervertebral disc disorders with radiculopathy, lumbar region (principal); R20.2 Paresthesia of skin
CPT/HCPCS: 62370

== ENCOUNTER 2024-11-12 08:36 | Day surgery (SDC) | payer MEDICAID, SELFPAY ==
--- NOTE | 2024-11-12 08:40 | EXP.PAIN.PRO ---
Procedure Date: 11/12/24 Time: 09:11 Anesthesiologist:: Elma Myrick APRN Complications:: None Pre-procedure Diagnosis:: Degenerative disc disease of lumbar spine with lumbar radiculopathy symptoms, paresthesia Post-procedure Diagnosis:: Same Indications for Procedure:: Patient is a pleasant 44-year-old female who presents today for intrathecal refill and reprogram. Today she rates her pain a 2 out of 10. She denies any new trauma or injury. She states that she is still doing really well with her pump medication. She states that the shock sensations do not even really happen at all now during the day. She does still get them at night and they do sometimes wake her up however she is not requesting any additional adjustments to her pump medication. Patient is currently managed with bupivacaine 10 mg/mL and Dilaudid 1 mg/mL. Her Dixon has been reviewed and is appropriate. Physical Exam: General: Alert and oriented x3, no acute distress, pleasant and cooperative Lungs: Respirations even and unlabored, symmetrical chest expansion Eyes: PERRL Musculoskeletal: Flexion and extension of lumbar [spine] somewhat guarded secondary to pain, [antalgic gait noted] Neurological: Speech clear, no gross sensory deficit Procedure Details:: Informed consent was obtained and the risk and benefits of the procedure were explained to the patient. The patient had noninvasive monitoring placed including noninvasive blood pressure cuff and pulse oximeter. Patient's pump was interrogated. The area over the pump was cleansed with chlorhexidine as a cleansing solution. In sterile fashion the pump was accessed with a 22-gauge needle. Approximately 5.5 mls of the pump solution was removed and discarded appropriately. The pump was then refilled with 20 mL's of bupivacaine 10 mg/mL and Dilaudid 1 mg/mL. The needle was withdrawn and a bandage was placed over the puncture site. The infusion rate was reprogrammed and continued at Dilaudid 0.5346 mg/day and bupivacaine 5.346 mg/day. The patient tolerated well with no complication. Plan and Disposition:: Patient tolerated the procedure well with no complications and was discharged neurologically intact. Patient will return to clinic on or before their next intrathecal refill date. We will see the patient back in the clinic at the next intrathecal refill. Patient has been instructed to contact the clinic with any concerns before the next appointment. Dr. Flores has reviewed this note and agrees with this plan of care. This note was dictated using voice recognition software and make contain errors or omissions. -- It Is medically necessary for this patient to continue to have their intrathecal pump refilled at regular intervals. This patient had an intrathecal pain pump implanted after meeting criteria of chronic intractable pain for greater than 3 months and failing conservative treatments. Patient has committed and been compliant to the treatment plan and all planned follow up care. Since implantation of the intrathecal pain pump, the patient has had decreased pain and been more functional. Oral medications have been reduced including intake of oral opioids. Patient continues to do well with intrathecal therapy with decrease in pain symptoms and increase in functional status. Stopping intrathecal medications can lead to life threatening withdrawal, seizures, cardiac arrest, severe pain, and possible . Pumps that are not refilled at regular intervals can be damages and cause and need for replacement. We continually titrate dose and concentration to optimize pain relief and function. We are limited in concentration for certain drugs to safely deliver medications through the pump and stay within the recommendations from the [employer] Guidelines. Depending on dose and concentration these pumps may need to be refilled sooner than 3 months as we titrate. A UDS is needed to verify patient's compliance with our office pain contract. This is ordered based off specific treatments related to chronic pain with the potential to abuse certain medications.
[2024-11-12 08:50] VITALS: BP 101/62; PULSE 71; RESP 16; TEMP 36.8; O2SAT 100; BMI 25.7
[2024-11-12 09:00] VITALS: BP 96/64; PULSE 55; RESP 18; O2SAT 100
[2024-11-12 09:07] VITALS: BP 96/64; PULSE 57; RESP 18; O2SAT 100
[2024-11-12 09:19] VITALS: BP 109/68; PULSE 54; RESP 16; O2SAT 99
== END 2024-11-12 09:19 | disposition home or self-care (01) ==
PROVIDERS: Visit Provider Nurse Practitioner Family
DX: M51.16 Intervertebral disc disorders with radiculopathy, lumbar region (principal); R20.2 Paresthesia of skin
CPT/HCPCS: 62370

== ENCOUNTER 2024-12-10 09:07 | Day surgery (SDC) | payer SELFPAY ==
[2024-12-10 09:21] VITALS: BP 101/56; PULSE 65; RESP 16; TEMP 36.8; O2SAT 99; BMI 25.7
--- NOTE | 2024-12-10 09:22 | P.PCN_ITS ---
Procedure Date: 12/10/24 Time: 09:45 Anesthesiologist:: Elma Myrick APRN Complications:: None Pre-procedure Diagnosis:: Degenerative disc disease of lumbar spine with lumbar radiculopathy symptoms, chronic pain syndrome, paresthesia Post-procedure Diagnosis:: Same Indications for Procedure:: Patient is a pleasant 44-year-old female who presents today for intrathecal refill and reprogram. Today she rates her pain a 2 out of 10. She denies any new trauma or injury. Patient does state that she has been having more pain at night and that through the day her current dosage is doing well. Patient denies any new injuries or falls. Patient is currently managed with bupivacaine 10 mg/ mL and Dilaudid 1 mg/mL with a daily dose of bupivacaine 5.346 mg/day and Dilaudid 0.5346 mg/day. She denies any side effects from this medication. She does state that the medication is still working well overall and that she is very pleased with this. Her Dixon has been reviewed and is appropriate. Physical Exam: General: Alert and oriented x3, no acute distress, pleasant and cooperative Lungs: Respirations even and unlabored, symmetrical chest expansion Eyes: PERRL Musculoskeletal: Flexion and extension of lumbar [spine] somewhat guarded secondary to pain, [antalgic gait noted] Neurological: Speech clear, no gross sensory deficit Procedure Details:: Informed consent was obtained and the risk and benefits of the procedure were explained to the patient. The patient had noninvasive monitoring placed including noninvasive blood pressure cuff and pulse oximeter. Patient's pump was interrogated. The area over the pump was cleansed with chlorhexidine as a cleansing solution. In sterile fashion the pump was accessed with a 22-gauge needle. Approximately 5.6 mls of the pump solution was removed and discarded appropriately. The pump was then refilled with 20 mL's of bupivacaine 10 mg/mL and Dilaudid 1 mg/mL. The needle was withdrawn and a bandage was placed over the puncture site. The infusion rate was reprogrammed and continued at its current dose. The patient tolerated well with no complication. Plan and Disposition:: Patient tolerated the procedure well with no complications and was discharged neurologically intact. I did discuss with the patient since she is having more pain that is worse at night that we will set her up on the PTM device for additional boluses as needed. Patient is currently having to self-pay due to insurance related issues. Patient is only getting a little over a month on her pump refills. We will plan on changing the concentration to bupivacaine 15 mg/mL and Dilaudid 2 mg/mL to help decrease the frequency in between visits. Patient agrees with this plan of care. Patient will return to clinic on or before their next intrathecal refill date. We will see the patient back in the clinic at the next intrathecal refill. Patient has been instructed to contact the clinic with any concerns before the next appointment. Dr. Flores has reviewed this note and agrees with this plan of care. This note was dictated using voice recognition software and make contain errors or omissions. -- It Is medically necessary for this patient to continue to have their intrathecal pump refilled at regular intervals. This patient had an intrathecal pain pump implanted after meeting criteria of chronic intractable pain for greater than 3 months and failing conservative treatments. Patient has committed and been compliant to the treatment plan and all planned follow up care. Since implantation of the intrathecal pain pump, the patient has had decreased pain and been more functional. Oral medications have been reduced including intake of oral opioids. Patient continues to do well with intrathecal therapy with decrease in pain symptoms and increase in functional status. Stopping intrathecal medications can lead to life threatening withdrawal, seizures, cardiac arrest, severe pain, and possible . Pumps that are not refilled at regular intervals can be damages and cause and need for replacement. We continually titrate dose and concentration to optimize pain relief and function. We are limited in concentration for certain drugs to safely deliver medications through the pump and stay within the recommendations from the [employer] Guidelines. Depending on dose and concentration these pumps may need to be refilled sooner than 3 months as we titrate. A UDS is needed to verify patient's compliance with our office pain contract. This is ordered based off specific treatments related to chronic pain with the potential to abuse certain medications.
[2024-12-10 09:42] VITALS: BP 106/56; PULSE 56; RESP 18; O2SAT 99
[2024-12-10 09:43] VITALS: BP 106/56; PULSE 50; RESP 18; O2SAT 99
--- NOTE | 2024-12-10 10:00 | PC.NURSE ---
PT LEFT WITHOUT GETTING VITALS OR GIVING PAIN SCALE
== END 2024-12-10 10:00 | disposition home or self-care (01) ==
PROVIDERS: Visit Provider Nurse Practitioner Family
DX: M51.16 Intervertebral disc disorders with radiculopathy, lumbar region (principal); G89.4 Chronic pain syndrome; R20.2 Paresthesia of skin
CPT/HCPCS: 62370

== ENCOUNTER 2024-12-31 09:14 | Day surgery (SDC) | payer SELFPAY ==
[2024-12-31 09:24] VITALS: BP 108/66; PULSE 61; RESP 16; O2SAT 100; BMI 25.7
[2024-12-31 09:28] VITALS: BP 113/66; PULSE 56; RESP 18; O2SAT 97
--- NOTE | 2024-12-31 09:30 | P.PCN_ITS ---
Procedure Date: 12/31/24 Time: 09:20 Anesthesiologist:: Elma Myrick APRN Complications:: None Pre-procedure Diagnosis:: Degenerative disc disease of lumbar spine with lumbar radiculopathy symptoms, paresthesia Post-procedure Diagnosis:: Same Indications for Procedure:: Patient is a pleasant 44-year-old female who presents today for intrathecal refill and reprogram. Today she rates her pain at a 4 out of 10. She denies any new trauma or injury. She does state that she feels like when she uses her PTM device every 6 hours that there are occasionally where she needs additional boluses in between. Patient is asking if we can make any adjustments. Patient is currently managed with Dilaudid 1 mg/mL with a daily dose 0.5346 mg/day and bupivacaine 10 mg/mL with a daily dose of 5.346 mg/day. She denies any side effects from this medication. Her Dixon has been reviewed and is appropriate. Physical Exam: General: Alert and oriented x3, no acute distress, pleasant and cooperative Lungs: Respirations even and unlabored, symmetrical chest expansion Eyes: PERRL Musculoskeletal: Flexion and extension of lumbar [spine] somewhat guarded secondary to pain, [antalgic gait noted] Neurological: Speech clear, no gross sensory deficit Procedure Details:: Informed consent was obtained and the risk and benefits of the procedure were explained to the patient. The patient had noninvasive monitoring placed including noninvasive blood pressure cuff and pulse oximeter. Patient's pump was interrogated. The area over the pump was cleansed with chlorhexidine as a cleansing solution. In sterile fashion the pump was accessed with a 22-gauge needle. Approximately 6.1 mls of the pump solution was removed and discarded appropriately. The pump was then refilled with 20 mL's of Dilaudid 2 mg/mL and bupivacaine 15 mg/mL. The needle was withdrawn and a bandage was placed over the puncture site. The infusion rate was reprogrammed and changed to bupivacaine 4.202 mg/day and Dilaudid 0.5602 mg/day. The patient tolerated well with no complication. Plan and Disposition:: Patient tolerated the procedure well with no complications and was discharged neurologically intact. Patient did have a concentration changed today from Dilaudid 1 mg to 2 mg and bupivacaine 10 mg to 15 mg/mL. Patient was counseled that there will be a bridge bolus between these changes and during that time she will not be able to use her PTM device. Patient will be adjusted on the PTM's to allow for every 4 hours. I did also senior vice president & general counsel the patient that we did make some adjustments to her medications. Patient acknowledges understanding and agrees with plan of care. Patient will return to clinic for her next intrathecal refill. We will see the patient back in the clinic at the next intrathecal refill. Patient has been instructed to contact the clinic with any concerns before the next appointment. Dr. Flores has reviewed this note and agrees with this plan of care. This note was dictated using voice recognition software and make contain errors or omissions. -- It Is medically necessary for this patient to continue to have their intrathecal pump refilled at regular intervals. This patient had an intrathecal pain pump implanted after meeting criteria of chronic intractable pain for greater than 3 months and failing conservative treatments. Patient has committed and been compliant to the treatment plan and all planned follow up care. Since implantation of the intrathecal pain pump, the patient has had decreased pain and been more functional. Oral medications have been reduced including intake of oral opioids. Patient continues to do well with intrathecal therapy with decrease in pain symptoms and increase in functional status. Stopping intrathecal medications can lead to life threatening withdrawal, seizures, cardiac arrest, severe pain, and possible . Pumps that are not refilled at regular intervals can be damages and cause and need for replacement. We continually titrate dose and concentration to optimize pain relief and function. We are limited in concentration for certain drugs to safely deliver medications through the pump and stay within the recommendations from the [employer]ensus [employer] Guidelines. Depending on dose and concentration these pumps may need to be refilled sooner than 3 months as we titrate. A UDS is needed to verify patient's compliance with our office pain contract. This is ordered based off specific treatments related to chronic pain with the potential to abuse certain medications.
[2024-12-31 09:31] VITALS: BP 113/66; PULSE 56; RESP 18; O2SAT 97
[2024-12-31 09:46] VITALS: BP 101/59; PULSE 55; RESP 16; O2SAT 100
== END 2024-12-31 09:46 | disposition home or self-care (01) ==
PROVIDERS: Visit Provider Nurse Practitioner Family
DX: M51.16 Intervertebral disc disorders with radiculopathy, lumbar region (principal); R20.2 Paresthesia of skin
CPT/HCPCS: 62370

== ENCOUNTER 2025-01-28 09:07 | Day surgery (SDC) | payer SELFPAY ==
[2025-01-28 09:21] VITALS: BP 114/81; PULSE 75; RESP 16; O2SAT 97; BMI 27.4
--- NOTE | 2025-01-28 09:25 | EXP.HP ---
History of Present Illness *Admission Date: 01/28/25 *Reason for visit:: Intrathecal refill, degenerative disc disease *History of present illness: Degenerative disc disease [facility] Disclaimer: The information contained in this section may have been updated after the patient was seen, as this information can be updated by other users. Medical History History of palpitations BRCA positive Marijuana abuse Seizures Migraine H/O chest pain Anemia Surgical History History of hernia surgery History of surgery on wrist Status post transverse rectus abdominis muscle (TRAM) flap breast reconstruction H/O total hysterectomy Hx of appendectomy Hx laparoscopic cholecystectomy Hx of bariatric surgery H/O bilateral mastectomy Family History Other Family history of cancer Family history of diabetes mellitus type II Family history of hypertension Social History Smoking Status: Former smoker tobacco type: cigarettes packs per day: 2 second hand exposure: Yes alcohol intake: current alcohol intake frequency: holidays/special occasions only substance use type: marijuana current occupational status: employed and other Travel in the last 8 weeks?: None household members: spouse housing: house current occupation: [employer] current occupational exposures/hazards: No caffeine: Yes Have you lived/traveled outside [place] in past 30 days?: No Contact w/someone who lives/traveled outside [place] past 30 days?: No Exposure to someone with infectious disease in past 14 days?: No Do you have a fever (greater than 100.4 F or 38 C)?: No Have you tested positive for COVID-19?: No Exposed to someone with COVID-19 in past 14 days?: No Do you have a sore throat?: No Do you have a cough?: No Do you have any weakness?: No Do you have any diarrhea?: No Are you experiencing any unusual bleeding?: No Do you have any muscle aches/pain?: No Do you have any abdominal pain?: No Are you experiencing loss of taste or smell?: No Other Medical History Have you received the Flu Vaccine for this season: No Have you received the Pneumonia Vaccine: No Review of Systems Review of Systems Review of systems:: pertinent systems reviewed and negative unless documented below Review of systems (narrative): Review of Systems: General: No recent weight changes, no fever, no sleep disturbances Respiratory: No cough, no shortness of air, no recurring pulmonary infections Cardiovascular/peripheral vascular: No chest pain, no palpitations, no edema, no shortness of breath Gastrointestinal: No new onset incontinence, normal bowel movements reported Genitourinary: No new onset incontinence Musculoskeletal: Full body electrical shock/paresthesia Psychiatric: [Normal mood/affect] Neurological: [Denies weakness in extremities], [denies balance issues] Meds Home Medications and Allergies Home Medications ?Medication ?Instructions ?Recorded ?Confirmed ?Type multivitamin,[id number] 1 tab PO QDAY Supplement 10/09/17 01/28/25 History (Complete Multivitamin tablet) acetaminophen 500 mg tablet 500 mg PO Q6H Pain 04/23/23 01/28/25 History lidocaine 5 % topical patch 1 patch topical Q12H Pain 04/23/23 01/28/25 History famotidine 20 mg tablet 20 mg PO DAILY 12/05/23 01/28/25 History hydrocortisone 2.5 % topical cream 1 applic topical BID 12/05/23 01/28/25 History with perineal applicator magnesium oxide 40 mg PO DAILY 12/05/23 01/28/25 History methocarbamol 750 mg tablet See Rx Instructions .Route 12/31/23 01/28/25 Rx .COMPLEX #90 tabs amitriptyline 10 mg tablet 10 mg PO DAILY #30 tabs 01/21/24 01/28/25 Rx bupivacaine (PF) 100 mg/20 mL (5 100 mg epidural CONT Pain 03/10/24 01/28/25 History mg/mL) 0.5 % epidural syringe New Prescriptions to Start Prescriptions: Allergies Allergy/AdvReac Type Severity Reaction Status Date / Time codeine (CODEINE) Allergy Unknown I-ITCHING Verified 06/15/24 08:45 Exam Constitutional Constitutional: no acute distress *Routine HEENT Exam Head: Present normocephalic and atraumatic Eye: Present PERRL ENT: Present mucous membranes moist *Routine Neck Exam Neck: Present supple *Routine Respiratory Exam Respiratory: Present CTA bilaterally *Routine Cardiovascular Exam Cardiovascular: Present RRR *Routine Abdominal Exam Abdominal: Present soft *Routine Rectal Exam Rectal:: deferred *Routine Genitalia Exam Genitalia:: normal female Routine Back/Spine/Pelvis Exam Back/Spine: Present pain with flexion *Routine Skin Exam Skin: Present intact and warm *Routine Neurological Exam Neurological: Present alert and oriented X3 Routine Psychiatric Exam Psychiatric: Present normal affect Assessment and Plan *Assessment and plan (1) Lumbar radiculopathy: Status: Acute Category: Medical Code(s): M54.16 - Radiculopathy, lumbar region (2) Chronic pain disorder: Status: Acute Category: Medical Code(s): G89.4 - Chronic pain syndrome Plan Patient has been instructed to contact the clinic with any concerns before the next appointment. Dr. Flores has reviewed this note and agrees with this plan of care. This note was dictated using voice recognition software and make contain errors or omissions. All injections are used with Lidocaine, Bupivacaine and dexamethasone. Occasionally urine drug screen is needed to verify patient's compliance with our office pain contract. This is ordered based off specific treatments related to chronic pain with the potential to abuse certain medications.
--- NOTE | 2025-01-28 09:28 | EXP.PAIN.PRO ---
Procedure Date: 01/28/25 Time: 09:36 Anesthesiologist:: Elma Myrick APRN Complications:: None Pre-procedure Diagnosis:: Degenerative disc disease, chronic pain disorder, lumbar radiculopathy, paresthesia Post-procedure Diagnosis:: Same Indications for Procedure:: Patient is a pleasant 44-year-old female who presents today for intrathecal refill and reprogram. She rates her pain today a 3 out of 10. She denies any new falls or injuries. She does state that she does seem like she has more pain in and around her upper mid back along the right side. Patient states is fairly constant. Patient is asking if there is other options we can do for this.Patient is currently managed with Dilaudid 2 mg/mL with a daily dose of 0.5602 mg/day and bupivacaine 15 mg/mL with a daily dose of 4.202 mg/day. She denies any side effects. Her Dixon has been reviewed and is appropriate. Physical Exam: General: Alert and oriented x3, no acute distress, pleasant and cooperative Lungs: Respirations even and unlabored, symmetrical chest expansion Eyes: PERRL Musculoskeletal: Flexion and extension of lumbar [spine] somewhat guarded secondary to pain, [antalgic gait noted] point tenderness along right rhomboid and right thoracic paraspinous/latissimus muscles Neurological: Speech clear, no gross sensory deficit Procedure Details:: Informed consent was obtained and the risk and benefits of the procedure were explained to the patient. The patient had noninvasive monitoring placed including noninvasive blood pressure cuff and pulse oximeter. Patient's pump was interrogated. The area over the pump was cleansed with chlorhexidine as a cleansing solution. In sterile fashion the pump was accessed with a 22-gauge needle. Approximately 9.2 mls of the pump solution was removed and discarded appropriately. The pump was then refilled with 20 mL's of Dilaudid 2 mg/mL and bupivacaine 15 mg/mL. The needle was withdrawn and a bandage was placed over the puncture site. The infusion rate was reprogrammed and continued at its current dosage. The patient tolerated well with no complication. Plan and Disposition:: Patient tolerated the procedure well with no complications and was discharged neurologically intact. I did discuss with patient that I will order her compounded cream to try and see if that helps with her upper back pain along the right side. Patient did have point tenderness along her right rhomboid and right thoracic paraspinous muscles. I did also discuss with patient she may benefit from trigger point injections if the topical does not seem to improve overall. We will follow-up with this at future visits. Patient will return to clinic on or before their next intrathecal refill date. We will see the patient back in the clinic at the next intrathecal refill. Patient has been instructed to contact the clinic with any concerns before the next appointment. Dr. Flores has reviewed this note and agrees with this plan of care. This note was dictated using voice recognition software and make contain errors or omissions. -- It Is medically necessary for this patient to continue to have their intrathecal pump refilled at regular intervals. This patient had an intrathecal pain pump implanted after meeting criteria of chronic intractable pain for greater than 3 months and failing conservative treatments. Patient has committed and been compliant to the treatment plan and all planned follow up care. Since implantation of the intrathecal pain pump, the patient has had decreased pain and been more functional. Oral medications have been reduced including intake of oral opioids. Patient continues to do well with intrathecal therapy with decrease in pain symptoms and increase in functional status. Stopping intrathecal medications can lead to life threatening withdrawal, seizures, cardiac arrest, severe pain, and possible . Pumps that are not refilled at regular intervals can be damages and cause and need for replacement. We continually titrate dose and concentration to optimize pain relief and function. We are limited in concentration for certain drugs to safely deliver medications through the pump and stay within the recommendations from the Polyanalgesic Consensus Committee Guidelines. Depending on dose and concentration these pumps may need to be refilled sooner than 3 months as we titrate. A UDS is needed to verify patient's compliance with our office pain contract. This is ordered based off specific treatments related to chronic pain with the potential to abuse certain medications.
[2025-01-28 09:31] VITALS: BP 114/74; PULSE 70; RESP 18; O2SAT 100
[2025-01-28 09:41] VITALS: BP 100/65; PULSE 87; RESP 16; O2SAT 99
== END 2025-01-28 09:41 | disposition home or self-care (01) ==
PROVIDERS: PCP Pediatrics; Visit Provider Nurse Practitioner Family
DX: G89.4 Chronic pain syndrome (principal); M54.16 Radiculopathy, lumbar region; R20.2 Paresthesia of skin
CPT/HCPCS: 62370; 99212; 99221; G0463

== ENCOUNTER 2025-03-04 14:37 | Day surgery (SDC) | payer SELFPAY ==
[2025-03-04 14:45] VITALS: BP 96/56; PULSE 68; RESP 16; O2SAT 98; BMI 27.4
--- NOTE | 2025-03-04 14:47 | EXP.HP ---
History of Present Illness *Admission Date: 03/04/25 *Reason for visit:: Intrathecal refill; DDD *History of present illness: Same [facility] Disclaimer: The information contained in this section may have been updated after the patient was seen, as this information can be updated by other users. Medical History History of palpitations BRCA positive Marijuana abuse Seizures Migraine H/O chest pain Anemia Surgical History History of hernia surgery History of surgery on wrist Status post transverse rectus abdominis muscle (TRAM) flap breast reconstruction H/O total hysterectomy Hx of appendectomy Hx laparoscopic cholecystectomy Hx of bariatric surgery H/O bilateral mastectomy Family History Other Family history of cancer Family history of diabetes mellitus type II Family history of hypertension Social History Smoking Status: Former smoker tobacco type: cigarettes packs per day: 2 second hand exposure: Yes alcohol intake: current alcohol intake frequency: holidays/special occasions only substance use type: marijuana current occupational status: employed and other Travel in the last 8 weeks?: None household members: spouse housing: house current occupation: [employer] current occupational exposures/hazards: No caffeine: Yes Have you lived/traveled outside [place] in past 30 days?: No Contact w/someone who lives/traveled outside US past 30 days?: No Exposure to someone with infectious disease in past 14 days?: No Do you have a fever (greater than 100.4 F or 38 C)?: No Have you tested positive for COVID-19?: No Exposed to someone with COVID-19 in past 14 days?: No Do you have a sore throat?: No Do you have a cough?: No Do you have any weakness?: No Do you have any diarrhea?: No Are you experiencing any unusual bleeding?: No Do you have any muscle aches/pain?: No Do you have any abdominal pain?: No Are you experiencing loss of taste or smell?: No Other Medical History Have you received the Flu Vaccine for this season: No Have you received the Pneumonia Vaccine: No Review of Systems Review of Systems Review of systems:: pertinent systems reviewed and negative unless documented below Review of systems (narrative): Review of Systems: General: No recent weight changes, no fever, no sleep disturbances Respiratory: No cough, no shortness of air, no recurring pulmonary infections Cardiovascular/peripheral vascular: No chest pain, no palpitations, no edema, no shortness of breath Gastrointestinal: No new onset incontinence, normal bowel movements reported Genitourinary: No new onset incontinence Musculoskeletal: Chronic back pain Psychiatric: [Normal mood/affect] Neurological: [Denies weakness in extremities], [denies balance issues] Meds Home Medications and Allergies Home Medications ?Medication ?Instructions ?Recorded ?Confirmed ?Type multivitamin,[id number] 1 tab PO QDAY Supplement 10/09/17 01/28/25 History (Complete Multivitamin tablet) acetaminophen 500 mg tablet 500 mg PO Q6H Pain 04/23/23 01/28/25 History lidocaine 5 % topical patch 1 patch topical Q12H Pain 04/23/23 01/28/25 History famotidine 20 mg tablet 20 mg PO DAILY 12/05/23 01/28/25 History hydrocortisone 2.5 % topical cream 1 applic topical BID 12/05/23 01/28/25 History with perineal applicator magnesium oxide 40 mg PO DAILY 12/05/23 01/28/25 History methocarbamol 750 mg tablet See Rx Instructions .Route 12/31/23 01/28/25 Rx .COMPLEX #90 tabs amitriptyline 10 mg tablet 10 mg PO DAILY #30 tabs 01/21/24 01/28/25 Rx bupivacaine (PF) 100 mg/20 mL (5 100 mg epidural CONT Pain 03/10/24 01/28/25 History mg/mL) 0.5 % epidural syringe New Prescriptions to Start Prescriptions: Allergies Allergy/AdvReac Type Severity Reaction Status Date / Time codeine (CODEINE) Allergy Unknown I-ITCHING Verified 06/15/24 08:45 Exam Constitutional Constitutional: no acute distress *Routine HEENT Exam Head: Present normocephalic and atraumatic Eye: Present PERRL ENT: Present mucous membranes moist *Routine Neck Exam Neck: Present supple *Routine Respiratory Exam Respiratory: Present CTA bilaterally *Routine Cardiovascular Exam Cardiovascular: Present RRR *Routine Abdominal Exam Abdominal: Present soft *Routine Rectal Exam Rectal:: deferred *Routine Genitalia Exam Genitalia:: normal female Routine Back/Spine/Pelvis Exam Back/Spine: Present pain with flexion *Routine Skin Exam Skin: Present intact, dry and warm *Routine Neurological Exam Neurological: Present alert and oriented X3 Routine Psychiatric Exam Psychiatric: Present normal affect and normal thought process Assessment and Plan *Assessment and plan (1) Lumbar radiculopathy: Status: Acute Category: Medical Code(s): M54.16 - Radiculopathy, lumbar region (2) Low back pain: Status: Acute Qualifiers: Chronicity: chronic Back pain laterality: bilateral Sciatica presence: unspecified whether sciatica present Qualified Code(s): M54.50 - Low back pain, unspecified; G89.29 - Other chronic pain Category: Medical Code(s): M54.50 - Low back pain, unspecified Plan Patient has been instructed to contact the clinic with any concerns before the next appointment. Dr. Flores has reviewed this note and agrees with this plan of care. This note was dictated using voice recognition software and make contain errors or omissions. All injections are used with Lidocaine, Bupivacaine and dexamethasone. Occasionally urine drug screen is needed to verify patient's compliance with our office pain contract. This is ordered based off specific treatments related to chronic pain with the potential to abuse certain medications.
--- NOTE | 2025-03-04 14:48 | P.PCN_ITS ---
Procedure Date: 03/04/25 Time: 14:57 Anesthesiologist:: Elma Myrick APRN Complications:: None Pre-procedure Diagnosis:: Degenerative disc disease of lumbar spine with lumbar radiculopathy symptoms, paresthesia Post-procedure Diagnosis:: Same Indications for Procedure:: Patient is a pleasant 44-year-old female who presents today for intrathecal refill and reprogram. She rates her pain today a 1 out of 10. She states overall she has been doing really well and has not even necessarily been using her bolus device. Patient does feel like that occasionally when she did use her device that she actually had increased neck pain. Patient is currently managed with Dilaudid 2 mg/mL with a daily dose of 0.5602 mg/day and bupivacaine 15 mg/mL with a daily dose of 4.202 mg/day. She denies any side effects. Her Dixon has been reviewed and is appropriate. Physical Exam: General: Alert and oriented x3, no acute distress, pleasant and cooperative Lungs: Respirations even and unlabored, symmetrical chest expansion Eyes: PERRL Musculoskeletal: Flexion and extension of lumbar [spine] somewhat guarded secondary to pain, [antalgic gait noted] Neurological: Speech clear, no gross sensory deficit Procedure Details:: Informed consent was obtained and the risk and benefits of the procedure were explained to the patient. The patient had noninvasive monitoring placed including noninvasive blood pressure cuff and pulse oximeter. Patient's pump was interrogated. The area over the pump was cleansed with chlorhexidine as a cleansing solution. In sterile fashion the pump was accessed with a 22-gauge needle. Approximately 8 mls of the pump solution was removed and discarded appropriately. The pump was then refilled with 20 mL's of Dilaudid 2 mg/mL and bupivacaine 15 mg/mL. The needle was withdrawn and a bandage was placed over th e puncture site. The infusion rate was reprogrammed and continued at its current dosage. The patient tolerated well with no complication. Plan and Disposition:: Patient tolerated the procedure well with no complications and was discharged neurologically intact. Patient will return to clinic on or before their next intrathecal refill date. We will see the patient back in the clinic at the next intrathecal refill. Patient has been instructed to contact the clinic with any concerns before the next appointment. Dr. Flores has reviewed this note and agrees with this plan of care. This note was dictated using voice recognition software and make contain errors or omissions. -- It Is medically necessary for this patient to continue to have their intrathecal pump refilled at regular intervals. This patient had an intrathecal pain pump implanted after meeting criteria of chronic intractable pain for greater than 3 months and failing conservative treatments. Patient has committed and been compliant to the treatment plan and all planned follow up care. Since implantation of the intrathecal pain pump, the patient has had decreased pain and been more functional. Oral medications have been reduced including intake of oral opioids. Patient continues to do well with intrathecal therapy with decrease in pain symptoms and increase in functional status. Stopping intrathecal medications can lead to life threatening withdrawal, seizures, cardiac arrest, severe pain, and possible . Pumps that are not refilled at regular intervals can be damages and cause and need for replacement. We continually titrate dose and concentration to optimize pain relief and function. We are limited in concentration for certain drugs to safely deliver medications through the pump and stay within the recommendations from the Polyanalgesic Consensus Committee Guidelines. Depending on dose and concentration these pumps may need to be refilled sooner than 3 months as we titrate. A UDS is needed to verify patient's compliance with our office pain contract. This is ordered based off specific treatments related to chronic pain with the potential to abuse certain medications.
[2025-03-04 14:53] VITALS: BP 101/66; PULSE 62; RESP 18; O2SAT 98
[2025-03-04 15:01] VITALS: BP 88/59; PULSE 64; RESP 18; O2SAT 99
--- NOTE | 2025-03-10 15:44 | PC.NURSE ---
per provider marbella,[employer] will need to provide another urine drug screen at upcoming appt on 04/08/25 r/t failed drug screen on 03/04/25.
--- NOTE | 2025-04-08 10:33 | EXP.PM.HP ---
History of Present Illness *Admission Date: 03/04/25 *Reason for visit:: Intrathecal refill; DDD *History of present illness: Same [facility] Disclaimer: The information contained in this section may have been updated after the patient was seen, as this information can be updated by other users. Medical History History of palpitations BRCA positive Marijuana abuse Seizures Migraine H/O chest pain Anemia Surgical History History of hernia surgery History of surgery on wrist Status post transverse rectus abdominis muscle (TRAM) flap breast reconstruction H/O total hysterectomy Hx of appendectomy Hx laparoscopic cholecystectomy Hx of bariatric surgery H/O bilateral mastectomy Family History Other Family history of cancer Family history of diabetes mellitus type II Family history of hypertension Social History Smoking Status: Former smoker tobacco type: cigarettes packs per day: 2 second hand exposure: Yes alcohol intake: current alcohol intake frequency: holidays/special occasions only substance use type: marijuana current occupational status: employed and other Travel in the last 8 weeks?: None household members: spouse housing: house current occupation: [employer] current occupational exposures/hazards: No caffeine: Yes Have you lived/traveled outside US in past 30 days?: No Contact w/someone who lives/traveled outside US past 30 days?: No Exposure to someone with infectious disease in past 14 days?: No Do you have a fever (greater than 100.4 F or 38 C)?: No Have you tested positive for COVID-19?: No Exposed to someone with COVID-19 in past 14 days?: No Do you have a sore throat?: No Do you have a cough?: No Do you have any weakness?: No Do you have any diarrhea?: No Are you experiencing any unusual bleeding?: No Do you have any muscle aches/pain?: No Do you have any abdominal pain?: No Are you experiencing loss of taste or smell?: No Other Medical History Have you received the Flu Vaccine for this season: No Have you received the Pneumonia Vaccine: No Review of Systems Review of Systems Review of systems:: pertinent systems reviewed and negative unless documented below Review of systems (narrative): Review of Systems: General: No recent weight changes, no fever, no sleep disturbances Respiratory: No cough, no shortness of air, no recurring pulmonary infections Cardiovascular/peripheral vascular: No chest pain, no palpitations, no edema, no shortness of breath Gastrointestinal: No new onset incontinence, normal bowel movements reported Genitourinary: No new onset incontinence Musculoskeletal: Chronic back pain, paresthesia Psychiatric: [Normal mood/affect] Neurological: [Denies weakness in extremities], [denies balance issues] Meds Home Medications and Allergies Home Medications ?Medication ?Instructions ?Recorded ?Confirmed ?Type multivitamin,[id number] 1 tab PO QDAY Supplement 10/09/17 04/08/25 History (Complete Multivitamin tablet) acetaminophen 500 mg tablet 500 mg PO Q6H Pain 04/23/23 04/08/25 History lidocaine 5 % topical patch 1 patch topical Q12H Pain 04/23/23 04/08/25 History famotidine 20 mg tablet 20 mg PO DAILY 12/05/23 04/08/25 History hydrocortisone 2.5 % topical cream 1 applic topical BID 12/05/23 04/08/25 History with perineal applicator magnesium oxide 40 mg PO DAILY 12/05/23 04/08/25 History methocarbamol 750 mg tablet See Rx Instructions .Route 12/31/23 04/08/25 Rx .COMPLEX #90 tabs amitriptyline 10 mg tablet 10 mg PO DAILY #30 tabs 01/21/24 04/08/25 Rx bupivacaine (PF) 100 mg/20 mL (5 100 mg epidural CONT Pain 03/10/24 04/08/25 History mg/mL) 0.5 % epidural syringe New Prescriptions to Start Prescriptions: Allergies Allergy/AdvReac Type Severity Reaction Status Date / Time codeine (CODEINE) Allergy Unknown I-ITCHING Verified 06/15/24 08:45 Exam Data for Last 24 hours Vital signs and Labs for Last 24 Hours: Pulse Resp BP Pulse Ox O2 Del Method 64 18 88/59 L 99 Room Air 03/04/25 15:01 03/04/25 15:01 03/04/25 15:01 03/04/25 15:01 03/04/25 15:01 Constitutional Constitutional: no acute distress *Routine HEENT Exam Head: Present normocephalic and atraumatic Eye: Present PERRL ENT: Present mucous membranes moist *Routine Neck Exam Neck: Present supple *Routine Respiratory Exam Respiratory: Present CTA bilaterally *Routine Cardiovascular Exam Cardiovascular: Present RRR *Routine Abdominal Exam Abdominal: Present soft *Routine Rectal Exam Rectal:: deferred *Routine Genitalia Exam Genitalia:: deferred Routine Back/Spine/Pelvis Exam Back/Spine: Present pain with flexion *Routine Skin Exam Skin: Present intact, dry and warm *Routine Neurological Exam Neurological: Present alert and oriented X3 Assessment and Plan *Assessment and plan (1) Lumbar radiculopathy: Status: Acute Category: Medical Code(s): M54.16 - Radiculopathy, lumbar region (2) Low back pain: Status: Acute Qualifiers: Chronicity: chronic Back pain laterality: bilateral Sciatica presence: unspecified whether sciatica present Qualified Code(s): M54.50 - Low back pain, unspecified; G89.29 - Other chronic pain Category: Medical Code(s): M54.50 - Low back pain, unspecified (3) Chronic pain disorder: Status: Acute Category: Medical Code(s): G89.4 - Chronic pain syndrome (4) Paresthesia: Status: Acute Category: Medical Code(s): R20.2 - Paresthesia of skin Plan Patient has been instructed to contact the clinic with any concerns before the next appointment. Dr. Flores has reviewed this note and agrees with this plan of care. This note was dictated using voice recognition software and make contain errors or omissions. All injections are used with Lidocaine, Bupivacaine and dexamethasone. Occasionally urine drug screen is needed to verify patient's compliance with our office pain contract. This is ordered based off specific treatments related to chronic pain with the potential to abuse certain medications.
--- NOTE | 2025-04-08 10:34 | P.PCN_ITS ---
Procedure Date: 04/08/25 Time: 10:54 Anesthesiologist:: Elma Myrick APRN Complications:: None Pre-procedure Diagnosis:: Degenerative disc disease of lumbar spine, chronic pain syndrome, paresthesia Post-procedure Diagnosis:: Same Indications for Procedure:: Patient is a pleasant 44-year-old female who presents today for intrathecal refill and reprogram. She rates her pain today a 1 out of 10. She states that she is doing well with her current pump medication and denies any side effects. Patient is currently managed with Dilaudid 2 mg/mL with a daily dose of 0.5602 mg/day and bupivacaine 15 mg/mL with a daily dose of 4.202 mg/day. She denies any side effects. Her Dixon has been reviewed. Physical Exam: General: Alert and oriented x3, no acute distress, pleasant and cooperative Lungs: Respirations even and unlabored, symmetrical chest expansion Eyes: PERRL Musculoskeletal: Flexion and extension of lumbar [spine] somewhat guarded secondary to pain, [antalgic gait noted] Neurological: Speech clear, no gross sensory deficit Procedure Details:: Informed consent was obtained and the risk and benefits of the procedure were explained to the patient. The patient had noninvasive monitoring placed including noninvasive blood pressure cuff and pulse oximeter. Patient's pump was interrogated. The area over the pump was cleansed with chlorhexidine as a cleansing solution. In sterile fashion the pump was accessed with a 22-gauge needle. Approximately 9.8 mls of the pump solution was removed and discarded appropriately. The pump was then refilled with 20 mL's of Dilaudid 2 mg/mL and bupivacaine 15 mg/mL. The needle was withdrawn and a bandage was placed over the puncture site. The infusion rate was reprogrammed and continued at its current dosage. The patient tolerated well with no complication. Plan and Disposition:: Patient tolerated the procedure well with no complications and was discharged neurologically intact. I did discuss with the patient regarding her last urine drug screen that it was inconsistent with discrepancies and that she would be rescreened today. Patient was counseled that if there continues to be inconsistencies with her drug screen we will have to make adjustments to her pump with the possibility of switching it completely to bupivacaine. Patient acknowledged understanding. Patient will return to clinic on or before their n ext intrathecal refill date. We will see the patient back in the clinic at the next intrathecal refill. Patient has been instructed to contact the clinic with any concerns before the next appointment. Dr. Flores has reviewed this note and agrees with this plan of care. This note was dictated using voice recognition software and make contain errors or omissions. -- It Is medically necessary for this patient to continue to have their intrathecal pump refilled at regular intervals. This patient had an intrathecal pain pump implanted after meeting criteria of chronic intractable pain for greater than 3 months and failing conservative treatments. Patient has committed and been compliant to the treatment plan and all planned follow up care. Since implantation of the intrathecal pain pump, the patient has had decreased pain and been more functional. Oral medications have been reduced including intake of oral opioids. Patient continues to do well with intrathecal therapy with decrease in pain symptoms and increase in functional status. Stopping intrathecal medications can lead to life threatening withdrawal, seizures, cardiac arrest, severe pain, and possible . Pumps that are not refilled at regular intervals can be damages and cause and need for replacement. We continually titrate dose and concentration to optimize pain relief and function. We are limited in concentration for certain drugs to safely deliver medications through the pump and stay within the recommendations from the Polyanalgesic Consensus Committee Guidelines. Depending on dose and concentration these pumps may need to be refilled sooner than 3 months as we titrate. A UDS is needed to verify patient's compliance with our office pain contract. This is ordered based off specific treatments related to chronic pain with the potential to abuse certain medications.
== END 2025-03-04 15:06 | disposition home or self-care (01) ==
PROVIDERS: Visit Provider Nurse Practitioner Family
DX: M54.16 Radiculopathy, lumbar region (principal); G89.29 Other chronic pain; R00.2 Palpitations; R56.9 Unspecified convulsions; G43.909 Migraine, unspecified, not intractable, without status migrainosus; D64.9 Anemia, unspecified; Z90.710 Acquired absence of both cervix and uterus; Z90.49 Acquired absence of other specified parts of digestive tract; Z98.84 Bariatric surgery status; Z90.13 Acquired absence of bilateral breasts and nipples; Z87.891 Personal history of nicotine dependence; Z79.899 Other long term (current) drug therapy; Z79.891 Long term (current) use of opiate analgesic; Z88.5 Allergy status to narcotic agent
CPT/HCPCS: 62370

== ENCOUNTER 2025-04-08 10:19 | Day surgery (SDC) | payer SELFPAY ==
[2025-04-08 10:25] VITALS: BP 106/70; PULSE 69; RESP 18; O2SAT 98; BMI 25.7
[2025-04-08 10:48] VITALS: BP 109/77; PULSE 64; RESP 18; O2SAT 94
[2025-04-08 11:00] VITALS: BP 101/62; PULSE 62; RESP 18; O2SAT 100
--- NOTE | 2025-04-11 15:13 | EXP.PAIN.PRO ---
Procedure Date: 04/08/25 Time: 10:34 Anesthesiologist:: Elma Myrick APRN Complications:: None Pre-procedure Diagnosis:: Degenerative disc disease, chronic pain syndrome, paresthesia; previous H&P and procedure note were dictated on the wrong VR number and are now being dictated the correct medical record number Post-procedure Diagnosis:: Same Indications for Procedure:: Patient is a pleasant 44-year-old female who presents today for intrathecal refill and reprogram. She rates her pain today a 1 out of 10. She states that she is doing well with her current pump medication and denies any side effects. Patient is currently managed with Dilaudid 2 mg/mL with a daily dose of 0.5602 mg/day and bupivacaine 15 mg/mL with a daily dose of 4.202 mg/day. She denies any side effects. Her Dixon has been reviewed. Physical Exam: General: Alert and oriented x3, no acute distress, pleasant and cooperative Lungs: Respirations even and unlabored, symmetrical chest expansion Eyes: PERRL Musculoskeletal: Flexion and extension of lumbar [spine] somewhat guarded secondary to pain, [antalgic gait noted] Neurological: Speech clear, no gross sensory deficit Procedure Details:: Informed consent was obtained and the risk and benefits of the procedure were explained to the patient. The patient had noninvasive monitoring placed including noninvasive blood pressure cuff and pulse oximeter. Patient's pump was interrogated. The area over the pump was cleansed with chlorhexidine as a cleansing solution. In sterile fashion the pump was accessed with a 22-gauge needle. Approximately 9.8 mls of the pump solution was removed and discarded appropriately. The pump was then refilled with 20 mL's of Dilaudid 2 mg/mL and bupivacaine 15 mg/mL. The needle was withdrawn and a bandage was placed over the puncture site. The infusion rate was reprogrammed and continued at its current dosage. The patient tolerated well with no complication. Plan and Disposition:: Patient tolerated the procedure well with no complications and was discharged neurologically intact. I did discuss with the patient regarding her last urine drug screen that it was inconsistent with discrepancies and that she would be rescreened today. Patient was counseled that if there continues to be inconsistencies with her drug screen we will have to make adjustments to her pump with the possibility of switching it completely to bupivacaine. Patient acknowledged understanding. Patient will return to clinic on or before their next intrathecal refill date. We will see the patient back in the clinic at the next intrathecal refill. Patient has been instructed to contact the clinic with any concerns before the next appointment. Dr. Flores has reviewed this note and agrees with this plan of care. This note was dictated using voice recognition software and make contain errors or omissions. -- It Is medically necessary for this patient to continue to have their intrathecal pump refilled at regular intervals. This patient had an intrathecal pain pump implanted after meeting criteria of chronic intractable pain for greater than 3 months and failing conservative treatments. Patient has committed and been compliant to the treatment plan and all planned follow up care. Since implantation of the intrathecal pain pump, the patient has had decreased pain and been more functional. Oral medications have been reduced including intake of oral opioids. Patient continues to do well with intrathecal therapy with decrease in pain symptoms and increase in functional status. Stopping intrathecal medications can lead to life threatening withdrawal, seizures, cardiac arrest, severe pain, and possible . Pumps that are not refilled at regular intervals can be damages and cause and need for replacement. We continually titrate dose and concentration to optimize pain relief and function. We are limited in concentration for certain drugs to safely deliver medications through the pump and stay within the recommendations from the Polyanalgesic Consensus Committee Guidelines. Depending on dose and concentration these pumps may need to be refilled sooner than 3 months as we titrate. A UDS is needed to verify patient's compliance with our office pain contract. This is ordered based off specific treatments related to chronic pain with the potential to abuse certain medications. Documented By: Elma Myrick APRN 04/08/25 1034 Signed By: <Electronically signed by Elma Myrick> 04/08/25 1056 Procedure Details:: Same Plan and Disposition:: Same
--- NOTE | 2025-04-11 15:15 | EXP.PM.HP ---
History of Present Illness *Admission Date: 04/08/25 *Reason for visit:: Intrathecal refill; DDD *History of present illness: Same [facility] Disclaimer: The information contained in this section may have been updated after the patient was seen, as this information can be updated by other users. Medical History History of palpitations BRCA positive Marijuana abuse Seizures Migraine H/O chest pain Anemia Surgical History History of hernia surgery History of surgery on wrist Status post transverse rectus abdominis muscle (TRAM) flap breast reconstruction H/O total hysterectomy Hx of appendectomy Hx laparoscopic cholecystectomy Hx of bariatric surgery H/O bilateral mastectomy Family History Other Family history of cancer Family history of diabetes mellitus type II Family history of hypertension Social History Smoking Status: Former smoker tobacco type: cigarettes packs per day: 2 second hand exposure: Yes alcohol intake: current alcohol intake frequency: holidays/special occasions only substance use type: marijuana current occupational status: employed and other Travel in the last 8 weeks?: None household members: spouse housing: house current occupation: [employer] current occupational exposures/hazards: No caffeine: Yes Other Medical History Have you received the Flu Vaccine for this season: No Have you received the Pneumonia Vaccine: No Review of Systems Review of Systems Review of systems:: pertinent systems reviewed and negative unless documented below Review of systems (narrative): Review of Systems: General: No recent weight changes, no fever, no sleep disturbances Respiratory: No cough, no shortness of air, no recurring pulmonary infections Cardiovascular/peripheral vascular: No chest pain, no palpitations, no edema, no shortness of breath Gastrointestinal: No new onset incontinence, normal bowel movements reported Genitourinary: No new onset incontinence Musculoskeletal: Chronic back pain, paresthesia Psychiatric: [Normal mood/affect] Neurological: [Denies weakness in extremities], [denies balance issues] Meds Home Medications and Allergies Home Medications ?Medication ?Instructions ?Recorded ?Confirmed ?Type multivitamin,nz-[id number] 1 tab PO QDAY Supplement 10/09/17 04/08/25 History (Complete Multivitamin tablet) acetaminophen 500 mg tablet 500 mg PO Q6H Pain 04/23/23 04/08/25 History lidocaine 5 % topical patch 1 patch topical Q12H Pain 04/23/23 04/08/25 History famotidine 20 mg tablet 20 mg PO DAILY 12/05/23 04/08/25 History hydrocortisone 2.5 % topical cream 1 applic topical BID 12/05/23 04/08/25 History with perineal applicator magnesium oxide 40 mg PO DAILY 12/05/23 04/08/25 History methocarbamol 750 mg tablet See Rx Instructions .Route 12/31/23 04/08/25 Rx .COMPLEX #90 tabs amitriptyline 10 mg tablet 10 mg PO DAILY #30 tabs 01/21/24 04/08/25 Rx bupivacaine (PF) 100 mg/20 mL (5 100 mg epidural CONT Pain 03/10/24 04/08/25 History mg/mL) 0.5 % epidural syringe New Prescriptions to Start Prescriptions: Allergies Allergy/AdvReac Type Severity Reaction Status Date / Time codeine (CODEINE) Allergy Unknown I-ITCHING Verified 06/15/24 08:45 Exam Data for Last 24 hours Vital signs and Labs for Last 24 Hours: Pulse Resp BP Pulse Ox O2 Del Method 62 18 101/62 L 100 Room Air 04/08/25 11:00 04/08/25 11:00 04/08/25 11:00 04/08/25 11:00 04/08/25 11:00 I & O for Last 24 hours: Intake & Output 04/08/25 04/09/25 04/10/25 04/11/25 23:59 23:59 23:59 23:59 Weight 150 lb Constitutional Constitutional: no acute distress *Routine HEENT Exam Head: Present normocephalic and atraumatic Eye: Present PERRL ENT: Present mucous membranes moist *Routine Neck Exam Neck: Present supple *Routine Respiratory Exam Respiratory: Present CTA bilaterally *Routine Cardiovascular Exam Cardiovascular: Present RRR *Routine Abdominal Exam Abdominal: Present soft *Routine Rectal Exam Rectal:: deferred *Routine Genitalia Exam Genitalia:: deferred Routine Back/Spine/Pelvis Exam Back/Spine: Present pain with flexion *Routine Skin Exam Skin: Present intact, dry and warm *Routine Neurological Exam Neurological: Present alert and oriented X3 Routine Psychiatric Exam Psychiatric: Present normal affect and normal thought process Assessment and Plan *Assessment and plan (1) Lumbar radiculopathy: Status: Acute Category: Medical Code(s): M54.16 - Radiculopathy, lumbar region (2) Chronic pain disorder: Status: Acute Category: Medical Code(s): G89.4 - Chronic pain syndrome (3) Low back pain: Status: Acute Qualifiers: Chronicity: chronic Back pain laterality: bilateral Sciatica presence: unspecified whether sciatica present Qualified Code(s): M54.50 - Low back pain, unspecified; G89.29 - Other chronic pain Category: Medical Code(s): M54.50 - Low back pain, unspecified (4) Paresthesia: Status: Acute Category: Medical Code(s): R20.2 - Paresthesia of skin Plan Patient has been instructed to contact the clinic with any concerns before the next appointment. Dr. Flores has reviewed this note and agrees with this plan of care. This note was dictated using voice recognition software and make contain errors or omissions. All injections are used with Lidocaine, Bupivacaine and dexamethasone. Occasionally urine drug screen is needed to verify patient's compliance with our office pain contract. This is ordered based off specific treatments related to chronic pain with the potential to abuse certain medications.
== END 2025-04-08 11:00 | disposition home or self-care (01) ==
PROVIDERS: PCP Nurse Practitioner; Visit Provider Nurse Practitioner Family
DX: Z45.1 Encounter for adjustment and management of infusion pump (principal); M51.369 Other intervertebral disc degeneration, lumbar region without mention of lumbar back pain or lower extremity pain; G89.4 Chronic pain syndrome; R20.2 Paresthesia of skin; D64.9 Anemia, unspecified; G40.909 Epilepsy, unspecified, not intractable, without status epilepticus; Z87.891 Personal history of nicotine dependence; Z88.5 Allergy status to narcotic agent; Z79.899 Other long term (current) drug therapy
CPT/HCPCS: 95991

== ENCOUNTER 2025-05-13 09:06 | Day surgery (SDC) | payer SELFPAY ==
[2025-05-13 09:13] VITALS: BP 114/68; PULSE 61; RESP 18; O2SAT 99; BMI 25.7
--- NOTE | 2025-05-13 09:16 | EXP.PM.HP ---
History of Present Illness *Admission Date: 05/13/25 *Reason for visit:: Intrathecal refill; DDD *History of present illness: Same [facility] Disclaimer: The information contained in this section may have been updated after the patient was seen, as this information can be updated by other users. Medical History History of palpitations BRCA positive Marijuana abuse Seizures Migraine H/O chest pain Anemia Surgical History History of hernia surgery History of surgery on wrist Status post transverse rectus abdominis muscle (TRAM) flap breast reconstruction H/O total hysterectomy Hx of appendectomy Hx laparoscopic cholecystectomy Hx of bariatric surgery H/O bilateral mastectomy Family History Other Family history of cancer Family history of diabetes mellitus type II Family history of hypertension Social History Smoking Status: Former smoker tobacco type: cigarettes packs per day: 2 second hand exposure: Yes alcohol intake: current alcohol intake frequency: holidays/special occasions only substance use type: marijuana current occupational status: employed and other Travel in the last 8 weeks?: None household members: spouse housing: house current occupation: [employer] current occupational exposures/hazards: No caffeine: Yes Have you lived/traveled outside [place] in past 30 days?: No Contact w/someone who lives/traveled outside [place] past 30 days?: No Exposure to someone with infectious disease in past 14 days?: No Do you have a fever (greater than 100.4 F or 38 C)?: No Have you tested positive for COVID-19?: No Exposed to someone with COVID-19 in past 14 days?: No Do you have a sore throat?: No Do you have a cough?: No Do you have any weakness?: No Do you have any diarrhea?: No Are you experiencing any unusual bleeding?: No Do you have any muscle aches/pain?: No Do you have any abdominal pain?: No Are you experiencing loss of taste or smell?: No Other Medical History Have you received the Flu Vaccine for this season: No Have you received the Pneumonia Vaccine: No Review of Systems Review of Systems Review of systems:: pertinent systems reviewed and negative unless documented below Review of systems (narrative): Review of Systems: General: No recent weight changes, no fever, no sleep disturbances Respiratory: No cough, no shortness of air, no recurring pulmonary infections Cardiovascular/peripheral vascular: No chest pain, no palpitations, no edema, no shortness of breath Gastrointestinal: No new onset incontinence, normal bowel movements reported Genitourinary: No new onset incontinence Musculoskeletal: Chronic back pain Psychiatric: [Normal mood/affect] Neurological: [Denies weakness in extremities], [denies balance issues] Meds Home Medications and Allergies Home Medications ?Medication ?Instructions ?Recorded ?Confirmed ?Type multivitamin,be-lbvx-sdygdnar 1 tab PO QDAY Supplement 10/09/17 05/13/25 History (Complete Multivitamin tablet) acetaminophen 500 mg tablet 500 mg PO Q6H Pain 04/23/23 05/13/25 History lidocaine 5 % topical patch 1 patch topical Q12H Pain 04/23/23 05/13/25 History famotidine 20 mg tablet 20 mg PO DAILY 12/05/23 05/13/25 History hydrocortisone 2.5 % topical cream 1 applic topical BID 12/05/23 05/13/25 History with perineal applicator magnesium oxide 40 mg PO DAILY 12/05/23 05/13/25 History methocarbamol 750 mg tablet See Rx Instructions .Route 12/31/23 05/13/25 Rx .COMPLEX #90 tabs amitriptyline 10 mg tablet 10 mg PO DAILY #30 tabs 01/21/24 05/13/25 Rx bupivacaine (PF) 100 mg/20 mL (5 100 mg epidural CONT Pain 03/10/24 05/13/25 History mg/mL) 0.5 % epidural syringe New Prescriptions to Start Prescriptions: Allergies Allergy/AdvReac Type Severity Reaction Status Date / Time codeine (CODEINE) Allergy Unknown I-ITCHING Verified 06/15/24 08:45 Exam Constitutional Constitutional: no acute distress *Routine HEENT Exam Head: Present normocephalic and atraumatic Eye: Present PERRL ENT: Present mucous membranes moist *Routine Neck Exam Neck: Present supple *Routine Respiratory Exam Respiratory: Present CTA bilaterally *Routine Cardiovascular Exam Cardiovascular: Present RRR *Routine Abdominal Exam Abdominal: Present soft *Routine Rectal Exam Rectal:: deferred *Routine Genitalia Exam Genitalia:: deferred Routine Back/Spine/Pelvis Exam Back/Spine: Present pain with flexion *Routine Skin Exam Skin: Present intact *Routine Neurological Exam Neurological: Present alert and oriented X3 Routine Psychiatric Exam Psychiatric: Present normal affect and normal thought process Assessment and Plan *Assessment and plan (1) Lumbar radiculopathy: Status: Acute Category: Medical Code(s): M54.16 - Radiculopathy, lumbar region (2) Chronic pain disorder: Status: Acute Category: Medical Code(s): G89.4 - Chronic pain syndrome (3) Low back pain: Status: Acute Qualifiers: Chronicity: chronic Back pain laterality: bilateral Sciatica presence: unspecified whether sciatica present Qualified Code(s): M54.50 - Low back pain, unspecified; G89.29 - Other chronic pain Category: Medical Code(s): M54.50 - Low back pain, unspecified (4) Paresthesia: Status: Acute Category: Medical Code(s): R20.2 - Paresthesia of skin
--- NOTE | 2025-05-13 09:18 | EXP.PAIN.PRO ---
Procedure Date: 05/13/25 Time: 09:32 Anesthesiologist:: Elma Myrick APRN Complications:: None Pre-procedure Diagnosis:: Degenerative disc disease, chronic pain syndrome, paresthesia Post-procedure Diagnosis:: Same Indications for Procedure:: Patient is a pleasant 45-year-old female who presents today for intrathecal refill and reprogram. Today she rates her pain at a 2 out of 10. She denies any new falls or injuries. She does state she is doing well with her current medication. Patient is currently managed with Dilaudid 2 mg/mL and bupivacaine 15 mg/mL. She denies any side effects. Her Dixon has been reviewed and is appropriate. Physical Exam: General: Alert and oriented x3, no acute distress, pleasant and cooperative Lungs: Respirations even and unlabored, symmetrical chest expansion Eyes: PERRL Musculoskeletal: Flexion and extension of lumbar [spine] somewhat guarded secondary to pain, [antalgic gait noted] Neurological: Speech clear, no gross sensory deficit Procedure Details:: Informed consent was obtained and the risk and benefits of the procedure were explained to the patient. The patient had noninvasive monitoring placed including noninvasive blood pressure cuff and pulse oximeter. Patient's pump was interrogated. The area over the pump was cleansed with chlorhexidine as a cleansing solution. In sterile fashion the pump was accessed with a 22-gauge needle. Approximately 9.9 mls of the pump solution was removed and discarded appropriately. The pump was then refilled with 20 mL's of Dilaudid 2 mg/mL and bupivacaine 15 mg/mL. The needle was withdrawn and a bandage was placed over the puncture site. The infusion rate was reprogrammed and dropped to 3.599 mg/day. The patient tolerated well with no complication. Plan and Disposition:: Patient tolerated the procedure well with no complications and was discharged neurologically intact. I did review over with the patient the fact that her last urine drug screen again came back inconsistent. Due to this fact we did turn her down to 15% and patient was counseled that if we continue to have inappropriate drug screens that we will have to make changes to her intrathecal pump medication and go back to bupivacaine only. patient acknowledges understanding. Patient will return to clinic on or before their next intrathecal refill date. We will see the patient back in the clinic at the next intrathecal refill. Patient has been instructed to contact the clinic with any concerns before the next appointment. Dr. Flores has reviewed this note and agrees with this plan of care. This note was dictated using voice recognition software and make contain errors or omissions. -- It Is medically necessary for this patient to continue to have their intrathecal pump refilled at regular intervals. This patient had an intrathecal pain pump implanted after meeting criteria of chronic intractable pain for greater than 3 months and failing conservative treatments. Patient has committed and been compliant to the treatment plan and all planned follow up care. Since implantation of the intrathecal pain pump, the patient has had decreased pain and been more functional. Oral medications have been reduced including intake of oral opioids. Patient continues to do well with intrathecal therapy with decrease in pain symptoms and increase in functional status. Stopping intrathecal medications can lead to life threatening withdrawal, seizures, cardiac arrest, severe pain, and possible . Pumps that are not refilled at regular intervals can be damages and cause and need for replacement. We continually titrate dose and concentration to optimize pain relief and function. We are limited in concentration for certain drugs to safely deliver medications through the pump and stay within the recommendations from the Polyanalgesic Consensus Committee Guidelines. Depending on dose and concentration these pumps may need to be refilled sooner than 3 months as we titrate. A UDS is needed to verify patient's compliance with our office pain contract. This is ordered based off specific treatments related to chronic pain with the potential to abuse certain medications.
[2025-05-13 09:23] VITALS: BP 107/46; PULSE 52; RESP 18; O2SAT 100
[2025-05-13 09:35] VITALS: BP 110/67; PULSE 61; RESP 18; O2SAT 98
== END 2025-05-13 09:35 | disposition home or self-care (01) ==
PROVIDERS: PCP Nurse Practitioner; Visit Provider Nurse Practitioner Family
DX: Z45.1 Encounter for adjustment and management of infusion pump (principal); M51.16 Intervertebral disc disorders with radiculopathy, lumbar region; G89.4 Chronic pain syndrome; G43.909 Migraine, unspecified, not intractable, without status migrainosus; D64.9 Anemia, unspecified; Z79.899 Other long term (current) drug therapy; Z88.5 Allergy status to narcotic agent; Z87.891 Personal history of nicotine dependence
CPT/HCPCS: 62370